=== PATIENT | male | born 1945 | race Caucasian/White ===

== ENCOUNTER → 2017-07-05 13:39 | Outpatient (CLI) | payer MEDICARE, OTHER, SELFPAY ==
[2017-07-05 15:44] LABS: PSA,Total - Annual Screen 2.43 ng/mL (0.00-4.00)
== END ==
PROVIDERS: Family Provider Internal Medicine; PCP Internal Medicine; Visit Provider Urology
DX: Z12.5 Encounter for screening for malignant neoplasm of prostate (principal)
CPT/HCPCS: 36415; 84153; G0103

== ENCOUNTER → 2018-01-12 07:06 | Outpatient (CLI) | payer MEDICARE, OTHER, SELFPAY ==
--- NOTE | 2018-01-12 07:18 | EKG12_ITS ---
Test Reason : PRE OP Blood Pressure : / mmHG Vent. Rate : 072 BPM Atrial Rate : 072 BPM P-R Int : 224 ms QRS Dur : 114 ms QT Int : 422 ms P-R-T Axes : 000 -05 027 degrees QTc Int : 462 ms Sinus rhythm with 1st degree A-V block Inferior infarct , age undetermined Abnormal ECG Confirmed by JOCELYNE VANEGAS, ERICA ([id number]), editor in chief NELSON MENDEZ ([id number] on 01/13/2018 3:39:00 PM Referred By: Jose Alarcon Confirmed By:ERICA CASANOVA MD
[2018-01-12 07:43] LABS: Hematocrit 43.9 % (40-54); Hemoglobin 14.7 g/dl (13.0-16.5); Mean Corp Hgb Conc 33.5 g/gl (32-36); Mean Corpuscular Hgb 32.2 pg (27.0-32.0); Mean Corpuscular Volume 96.1 fL (80-94); Mean Platelet Vol. 9.6 fl (6.2-12.0); Platelet Count 150 K/mm3 (150-450); RBC Distribution Width CV 14.2 % (11.6-14.6); RBC Distribution Width SD 49.6 fl (35.1-43.9); Red Blood Count 4.57 M/mm3 (4.6-6.2)
[2018-01-12 07:46] LABS: Scan Indicated on CBC? Y/N NO
[2018-01-12 08:19] LABS: Anion Gap 8 (5-15); BUN 24 mg/dL (7-18); BUN/Creat Ratio 24.4 RATIO (10-20); Chloride 108 mmol/L (98-107); Creatinine, Serum 0.98 mg/dL (0.70-1.30); EST Glomerular Filtration Rate 79 mL/min (>60); Est Glom Filt Rate - Afr Amer 96 mL/min (>60); Glucose 129 mg/dL (74-106); Potassium 3.8 mmol/L (3.5-5.1); Sodium Level 142 mmol/L (136-145)
== END ==
PROVIDERS: Family Provider Internal Medicine; PCP Internal Medicine; Referring Provider Physician Assistant; Visit Provider Physician Assistant
DX: Z01.818 Encounter for other preprocedural examination (principal)
CPT/HCPCS: 36415; 80048; 85027; 93005

== ENCOUNTER 2019-01-16 17:23 | Emergency (ER) | payer MEDICARE, OTHER, SELFPAY ==
[2019-01-16 17:25] VITALS: BP 152/89; PULSE 94; RESP 14; TEMP 36.2; O2SAT 97; BMI 22.6
[2019-01-16] MEDS: Lidocaine Jelly 2% 20 ML Syringe (URO-JET) 20 APPLIC TOPICAL (17:50)
--- NOTE | 2019-01-16 18:16 | ED.VIS.GEN ---
History of Present Illness Chief Complaint: Tatum C/O Informant: Patient Onset: Today Context: Gradual Onset Timing: Continuous Current Severity: Moderate Maximum Severity: Moderate Narrative: Patient presents to the emergency department with urinary retention. The patient did have a knee replacement last week. He did have urinary retention after his procedure. He just followed up in the office with urology today. He is catheter removed. His Flomax was increased. He states that he had some mild urination, but then it just stopped. He states that he spoke with his urologist who told him to come back to the office, but he had physical therapy. At the time he was done, the office was closed. He denies any blood in his urine. He is otherwise been in his normal state of health. Prior similar symptoms: Yes Recent Illness/Hospitalization: No Past Medical History - Allergies and Home Meds Allergies/Adverse Reactions: Allergies No Known Allergies Allergy (Verified 01/16/19 17:24) Primary Care Physician: Yonatan Sanchez MD [Primary Care Provider] - Prior records reviewed: Yes Surgical History: total knee arthroplasty Smoking Status: Never smoker Review of Systems General: Denies: Chills, Fever, Sweats Eyes: Denies: Visual changes - bilaterally, Diplopia ENT: Denies: Rhinorrhea, Sore throat Cardiovascular: Denies: Chest pain, Palpitations Respiratory: Denies: Dyspnea, Cough, Dyspnea on exertion Gastrointestinal: Denies: Abdominal pain, Nausea, Vomiting, Diarrhea, Melena, Hematochezia Genitourinary: Denies: Dysuria, Hematuria, Frequency Musculoskeletal: Denies: Back pain, Extremity Pain Skin: Denies: Rash, Wounds Neurological: Denies: Headache, Weakness, Numbness Physical Exam Vital Signs/Narrative: Vital Signs Temp Pulse Resp BP Pulse Ox 01/16/19 17:25 97.2 F L 94 14 152/89 H 97 Inital Vital Signs reviewed: Yes General: Well nourished, Well developed, No Acute Distress Head: Normocephalic, Atraumatic Eyes: Perrl, EOMI ENT: Moist mucous membranes, No rhinorrhea Neck: Supple, Nontender Cardiovascular: Regular rate, Regular rhythm, No murmurs Respiratory: No distress, CTA bilaterally, Chest nontender Abdomen: Soft, Nontender, Nondistended, Normal bowel sounds Back: Nontender, Normal Inspection Extremities: Nontender, No edema Skin: Normal color, No rash Neurological: Alert, Oriented x3, Cranial nerves II-XII grossly intact, Normal Strength, Normal Sensation Psychological: Normal affect, Normal Mood Diagnostic/Tx/Re-eval - Medical Decision Making The patient presents with acute urinary retention. Tatum catheter was placed. He had 400 cc of clear urine out. He is feeling markedly improved. At this point, he will be discharged with his catheter and follow-up with urology as initially scheduled. He is comfortable with this plan of care. Impression 1. Acute urinary retention ED Disposition - Plan for ED Patient: Disposition: Home or Assisted Living Instructions: Tatum Catheter, Care Referrals: Yonatan Sanchez MD [Primary Care Provider] -
== END 2019-01-16 18:34 | disposition home or self-care (01) ==
LOC: ED 17:42
PROVIDERS: Emergency Provider Emergency Medicine; Family Provider Internal Medicine; PCP Internal Medicine
DX: R33.9 Retention of urine, unspecified (principal); Z96.659 Presence of unspecified artificial knee joint
CPT/HCPCS: 51702; 99283

== ENCOUNTER 2022-12-01 13:00 | Observation (INO) | payer MEDICARE, OTHER, SELFPAY ==
[2022-12-01] VITALS (16 sets, daily range): BP systolic 148–228; BP diastolic 81–125; PULSE 57–76; RESP 12–26; TEMP 36.2–37.2; O2SAT 57–100; BMI 23.7; BMI 23.3
[2022-12-01] MEDS: Lidocaine 1% (20 ml mdv) 20 ML Vial INFILT (13:31)
[2022-12-01] MEDS: Ondansetron 4 MG/2 ML Vial IV (13:31)
[2022-12-01] MEDS: morphine 8 MG/ML Syringe IV (13:31)
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
[2022-12-01] MEDS: morphine 8 MG/ML Syringe 6 MG IV ×2 (13:49→14:17)
--- NOTE | 2022-12-01 13:50 | RAD_ITS ---
STUDY: X-RAY - LEFT RADIUS AND ULNA REASON FOR EXAM: Male, 77 years old. Left forearm fracture TECHNIQUE: 2 view(s) of the forearm. COMPARISON: None. FINDINGS: Soft tissue swelling. Transverse fracture of the distal radial shaft with overriding of the fracture fragments. Transverse fracture of the distal ulnar metaphysis with overriding of the fracture fragment. RAD/Forearm 2 Views IMPRESSION: Transverse fractures through the distal diaphysis of the radius as well as the distal metaphysis of the ulna with overlapping of the fracture fragments. Soft tissue swelling. Electronically Signed: Mayito García MD at 14:08 EDT ,
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
[2022-12-01] MEDS: Ampicillin/Sulbactam 3 GM in 0.9% Normal Saline (100mL MB+) 100 ML IV (14:30)
[2022-12-01] MEDS: Propofol 200 MG/20 ML Vial 60 MG IV BOLUS (15:39)
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
[2022-12-01] MEDS: Cefazolin 1 GM/5 ML Vial IM (16:50)
--- NOTE | 2022-12-01 17:00 | RAD_ITS ---
STUDY: X-RAY - LEFT RADIUS AND ULNA REASON FOR EXAM: Male, 77 years old. ORIF TECHNIQUE: 3 C-arm view(s) of the forearm. 27.1 seconds fluoroscopy time. COMPARISON: Earlier the same day. FINDINGS: Limited [id number] images from the OR show positioning of compression plates and screws across distal ulnar and radial fractures now in anatomic alignment and position. Correlate with procedure note. Electronically Signed: Moustapha Shaikh MD at 19:24 EDT , RAD/Forearm 2 Views IMPRESSION: undefined
[2022-12-01] MEDS: Ketorolac 30 MG/ML Syringe IV (20:26)
[2022-12-01] MEDS: Lactated Ringers 1,000 ML 100 ML IV ×2 (20:28→23:19)
--- NOTE | 2022-12-01 21:59 | NURSING ---
Pt has been out of bed. Pt has voided and is given an clear liq diet at this time
[2022-12-01 22:56] LABS: Absolute Lymphocyte Count 0.29 X10^3/uL (0.83-4.51); Absolute Neutrophil Count 5.6 X10^3/uL (2.0-7.7); Basophil# 0.01 X10^3/uL; Basophil% 0.2 % (0-1); Hematocrit 39.6 % (40-54); Hemoglobin 13.6 g/dL (13.0-16.5); Lymphocyte # 0.29 X10^3/ul (0.83-4.51); Lymphocyte % 4.7 % (19-41); Mean Corp Hgb Conc 34.3 g/dL (32-36); Mean Corpuscular Hgb 32.9 pg (27.0-32.0); Mean Corpuscular Volume 95.9 fL (80-94); Monocyte# 0.25 X10^3/uL; Monocyte% 4.1 % (0-10); NRBC Flagged by Analyzer 0 % (0-5); Neutrophil # 5.55 X10^3/uL (2.7-7.7); Neutrophil % 90.7 % (47-70); POSITIVE DIFFERENTIAL YES; Platelet Count 152 K/mm3 (150-450); RBC Distribution Width CV 13.9 % (11.6-14.6); RBC Distribution Width SD 49.1 fl (35.1-43.9); Red Blood Count 4.13 M/mm3 (4.6-6.2); White Blood Count 6.1 K/mm3 (4.4-11.0)
[2022-12-01 23:02] LABS: Differential Indicated SCAN CRITERIA MET
[2022-12-01 23:11] LABS: Anion Gap 7 (5-15); BUN 14 mg/dL (7-18); Calcium,Total 8.2 mg/dL (8.5-10.1); Chloride 105 mmol/L (98-107); Creatinine, Serum 1.17 mg/dL (0.70-1.30); EST Glomerular Filtration Rate 64 mL/min (>60); Est Glom Filt Rate - Afr Amer 77 mL/min (>60); Estimated Creatinine Clearance 56.19 ml/min; Glucose 195 mg/dL (74-106); Potassium 3.9 mmol/L (3.5-5.1); Sodium Level 136 mmol/L (136-145)
[2022-12-01 23:28] LABS: Differential Comment SCANNED
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
[2022-12-02 01:11] VITALS: BP 124/68; PULSE 73; RESP 18; TEMP 36.6; O2SAT 73
[2022-12-02] MEDS: Cefazolin 2 GM in 0.9% Normal Saline (100mL Bag) 100 ML IV ×3 (01:16→16:41)
[2022-12-02 06:00] VITALS: BP 115/65; PULSE 60; RESP 16; TEMP 36.5; O2SAT 96
[2022-12-02] MEDS: Ketorolac 30 MG/ML Syringe IV ×2 (06:09→15:09)
[2022-12-02] MEDS: 0.9% Saline Lock 10 ML Syringe IV (06:09)
--- NOTE | 2022-12-02 07:39 | PN.ORTHO_ITS ---
Subjective Subjective Patient seen and examined. Denies any new complaints. Denies fevers, chills, nausea vomiting, chest pain or shortness of breath. Urinating without difficulty. Pain is controlled with current pain regimen. Denies any numbness or tingling the left hand. Objective Data Objective Data Vital Signs: Vital Signs Temp Pulse Resp BP Pulse Ox O2 Del Method O2 Flow Rate 97.7 F L 60 16 115/65 96 Room Air 4 12/02/22 06:00 12/02/22 06:00 12/02/22 06:00 12/02/22 06:00 12/02/22 06:00 12/02/22 06:00 12/01/22 15:45 Oxygen Flow Rate (L/min) [1] 4 Oxygen Flow Rate (L/min) [4] 4 Oxygen Flow Rate (L/min) [3] 4 Oxygen Flow Rate (L/min) [2] 4 Oxygen Flow Rate (L/min) 4 Oxygen Delivery Method [1] Nasal Cannula Oxygen Delivery Method [4] Nasal Cannula Oxygen Delivery Method [3] Nasal Cannula Oxygen Delivery Method [2] Room Air Oxygen Delivery Method Room Air Weight: 172 lb 9.951 oz Body Mass Index (BMI) 23.3 Intake & Output: Intake and Output for Last 24 Hours 11/30/22 12/01/22 12/02/22 23:59 23:59 23:59 Intake Total 1637 / 1637 711.67 / 711.67 Output Total 240 / 240 Balance 1397 / 1397 711.67 / 711.67 Lab / Micro Data 12/01/22 22:47 12/01/22 22:47 Labs: Laboratory Results - last 24 hr 12/01/22 22:47: WBC 6.1, RBC 4.13 L, Hgb 13.6, Hct 39.6 L, MCV 95.9 H, MCH 32.9 H, MCHC 34.3, RDW Std Deviation 49.1 H, RDW Coeff of Alexy 13.9, Plt Count 152, MPV 10.0, Immature Gran % (Auto) 0.300, Neut % (Auto) 90.7 H, Lymph % (Auto) 4.7 L, [place] % (Auto) 4.1, Eos % (Auto) 0.0, Baso % (Auto) 0.2, Absolute Neuts (auto) 5.6, Absolute Lymphs (auto) 0.29 L, Nucleated RBC % 0, Differential Comment SCANNED, Sodium 136, Potassium 3.9, Chloride 105, Carbon Dioxide 24.0, Anion Gap 7, BUN 14, Creatinine 1.17, Estim Creat Clear Calc 56.19, Est GFR (MDRD) Af Amer 77, Est GFR (MDRD) Non-Af 64, BUN/Creatinine Ratio 12.0, Glucose 195 H, Calcium 8.2 L Radiography Diagnostic Testing: Radiology Impression Forearm X-Ray 12/01/22 13:50 IMPRESSION: Transverse fractures through the distal diaphysis of the radius as well as the distal metaphysis of the ulna with overlapping of the fracture fragments. Soft tissue swelling. Electronically Signed: Mayito García MD at 14:08 EDT , Hand X-Ray 12/01/22 13:50 IMPRESSION: Degenerative changes of the interphalangeal joints. Transverse fractures of the distal radius and ulna as described on prior examination. Electronically Signed: Mayito García MD at 14:09 EDT , Brain CT 12/01/22 15:48 IMPRESSION: Normal unenhanced CT scan of the brain. Electronically Signed: Moustapha Shaikh MD at 16:19 EDT , Forearm X-Ray 12/01/22 17:00 IMPRESSION: undefined Physical Exam Narrative General - A&Ox3, NAD. VSS/AF. Left upper Extremity - SILT median/ulnar/radial nerve distributions left hand. Cardinal motions of left hand are intact. Radial, ulnar pulses 2+. Compartments soft and compressible. BCR in finger tips. Incisional splint/dressing C/D/I. Assessment & Plan Assessment/Plan (1) Open fracture of left distal forearm: QUALIFIERS: Encounter type: initial encounter Open fracture type: open type I or II Qualified Code(s): S52.92XB - Unspecified fracture of left forearm, initial encounter for open fracture type I or II PLAN: POD#1 s/p left radius and ulna I&D, ORIF - Pain control - DVT PPX -aspirin 81 mg twice daily, SCDs, early mobilization -24 hours IV antibiotics. Plan for discharge on 1 week Keflex. -Plan for discharge later this evening after completing 24 hours postoperative antibiotics. Follow-up with me in the office in 2 weeks for suture removal and x-rays.
[2022-12-02] MEDS: Gabapentin 300 MG Capsule PO ×2 (08:09→16:44)
[2022-12-02] MEDS: Aspirin 81 MG TAB.CHEW PO ×2 (08:09→16:44)
[2022-12-02 09:17] VITALS: BP 106/67; PULSE 56; RESP 18; TEMP 36.5; O2SAT 96
[2022-12-02] MEDS: Flu Vacc QS2023-24(65YR UP)/PF 240 MCG/0.7 ML Syringe IM (09:49)
[2022-12-02 13:49] VITALS: BP 124/85; PULSE 56; RESP 18; TEMP 36.3; O2SAT 96
--- NOTE | 2022-12-02 14:30 | CASEMGMT ---
RN CM into pt room, pt sitting up in bed. Pt states he is doing well and denies any homegoing needs. Pt states his has picked up rx. He is I at home and up indep in the room.
--- NOTE | 2022-12-02 15:50 | CASEMGMT ---
Social Work SW met with pt to discuss advance directives.? Pt confirms he has completed a living will and health care POA naming his Estelita Ferris.? Pt notified that documents are not on file at [facility] and SW requested they be brought in for scanning into the EMR. AMANDA Isaac
--- NOTE | 2022-12-02 16:31 | CASEMGMT ---
Met with patient to complete AYALA form. AYALA form explained to patient who voiced understanding and signed form. Original form placed in pt?s chart and copy provided to patient. Lorie Elena, Discharge Planning Asst.
[2022-12-02 17:49] VITALS: BP 111/65; PULSE 59; RESP 18; TEMP 36.6; O2SAT 95
--- NOTE | 2022-12-02 18:19 | PCM.DC.SUM ---
Providers Date of Admission: 12/01/22 Primary Care Physician: Dr. Yonatan Sanchez MD Reason For Visit: I/D ORIF LEFT RADIAL AND ULNA Diagnosis Discharge Diagnosis (1) Open fracture of left distal forearm: Status: Acute Code(s): S52.92XB - Unspecified fracture of left forearm, initial encounter for open fracture type I or II Qualifiers: Encounter type: initial encounter Open fracture type: open type I or II Qualified Code(s): S52.92XB - Unspecified fracture of left forearm, initial encounter for open fracture type I or II Plan: POD#1 s/p left radius and ulna I&D, ORIF - Pain control - DVT PPX -aspirin 81 mg twice daily, SCDs, early mobilization -24 hours IV antibiotics. Plan for discharge on 1 week Keflex. -Plan for discharge later this evening after completing 24 hours postoperative antibiotics. Follow-up with me in the office in 2 weeks for suture removal and x-rays. Medications at Discharge Home Medications cholecalciferol (vitamin D3) 25 mcg (1,000 unit) capsule 25 mcg PO DAILY 09/02/21 coenzyme Q10 10 mg capsule (Co Q-10) 10 mg PO ONCE 09/02/21 glucosamine-chondroitin 250 mg-200 mg tablet (Osteo Bi-Flex) 2 tab PO QPC 09/02/21 lysine 500 mg tablet (L-Lysine) 500 mg PO DAILY 12/01/22 aspirin 81 mg chewable tablet 81 mg PO BIDCM 14 days #28 tabs 12/02/22 cephalexin 500 mg capsule 500 mg PO Q6H 7 days #28 caps 12/02/22 oxycodone-acetaminophen 5 mg-325 mg tablet (Percocet) 1 tab PO Q6H PRN pain 7 days #28 tabs 12/02/22 Hospital Course Summary of Care Provided Minutes Spent on Discharge: 20 Hospital Course: Patient sustained an open grade 1 fracture of his left radius and ulna 12/01/2022. He underwent urgent irrigation debridement with open reduction internal fixation of the radius and ulna on 12/01/2022. He tolerated the procedure well. He received 24 hours postoperative antibiotics as well as antibiotics and tetanus in the emergency department. No medical or surgical complications were encountered throughout his stay. His pain was controlled and he was able to be safely discharged home on postoperative day #1. Physical Exam Narrative General - A&Ox3, NAD. VSS/AF. Left upper Extremity - SILT median/ulnar/radial nerve distributions left hand. Cardinal motions of left hand are intact. Radial, ulnar pulses 2+. Compartments soft and compressible. BCR in finger tips. Incisional splint/dressing C/D/I. Weight / BMI Weight Weight: 172 lb 9.951 oz Body Mass Index (BMI) 23.3 ABG / Lab / Microbiology Data 12/01/22 22:47 12/01/22 22:47 Laboratory: Laboratory Results - last 24 hr 12/01/22 22:47: WBC 6.1, RBC 4.13 L, Hgb 13.6, Hct 39.6 L, MCV 95.9 H, MCH 32.9 H, MCHC 34.3, RDW Std Deviation 49.1 H, RDW Coeff of Alexy 13.9, Plt Count 152, MPV 10.0, Immature Gran % (Auto) 0.300, Neut % (Auto) 90.7 H, Lymph % (Auto) 4.7 L, [place] % (Auto) 4.1, Eos % (Auto) 0.0, Baso % (Auto) 0.2, Absolute Neuts (auto) 5.6, Absolute Lymphs (auto) 0.29 L, Nucleated RBC % 0, Differential Comment SCANNED, Sodium 136, Potassium 3.9, Chloride 105, Carbon Dioxide 24.0, Anion Gap 7, BUN 14, Creatinine 1.17, Estim Creat Clear Calc 56.19, Est GFR (MDRD) Af Amer 77, Est GFR (MDRD) Non-Af 64, BUN/Creatinine Ratio 12.0, Glucose 195 H, Calcium 8.2 L Radiography Diagnostic Testing: Radiology Impression Forearm X-Ray 12/01/22 17:00 IMPRESSION: undefined Meaningful Use Info Meaningful Use Diagnoses (Choose all that apply): None applicable Discharge Plan Admission Admit Date/Time: 12/01/22 16:41 Primary Reason for Your Visit: Left open forearm fracture Attending Provider: Milind Miles Primary Care Provider: Yonatan Sanchez Instructions Additional Instructions / Restrictions: Maintain surgical dressing/splint until follow-up. Must remain clean dry and intact. Okay to shower if covered. Follow-up in Dr. Miles's office in 2 weeks Ice and elevation of the left hand and wrist Range of motion as tolerated to the fingers and elbow Take antibiotics as prescribed Discharge Orders/Prescriptions Prescriptions: New oxycodone-acetaminophen [Percocet] 5-325 mg tablet 1 tab PO Q6H PRN (Reason: pain) 7 Days Qty: 28 0RF cephalexin 500 mg capsule 500 mg PO Q6H 7 Days Qty: 28 0RF aspirin 81 mg Tablet,Chewable 81 mg PO BIDCM 14 Days Qty: 28 0RF Continued coenzyme Q10 [Co Q-10] 10 mg capsule 10 mg PO ONCE glucosamine-chondroitin [Osteo Bi-Flex] 250-200 mg tablet 2 tab PO QPC cholecalciferol (vitamin D3) 25 mcg (1,000 unit) capsule 25 mcg PO DAILY Patient Comments: pt only takes for 5 days week lysine [L-Lysine] 500 mg tablet 500 mg PO DAILY Referrals / Follow Up: Milind Miles DO [Med Staff - Active Staff] - 12/16/22 Yonatan Sanchez MD [Primary Care Provider] - Disposition Disposition (needs filled in before D/C Order can be placed): Home, Self Care
== END 2022-12-02 18:55 | disposition home or self-care (01) ==
LOC: ED 15:43 → SDC 16:35 → ACINP 16:36 → MS3 21:34 → SDC 12-02 09:27 → MS3 12-02 09:27
PROVIDERS: Admitting Provider Student in an Organized Health Care Education/Training Program; Emergency Provider Emergency Medicine; PCP Internal Medicine; Visit Provider Student in an Organized Health Care Education/Training Program
PROC: (CPT 25575; principal; 2022-12-01 16:00)
DX: S52.592B Other fractures of lower end of left radius, initial encounter for open fracture type I or II (principal); S01.01XA Laceration without foreign body of scalp, initial encounter; R11.0 Nausea; V86.59XA Driver of other special all-terrain or other off-road motor vehicle injured in nontraffic accident, initial encounter; Y93.89 Activity, other specified; Y92.9 Unspecified place or not applicable; S52.222B Displaced transverse fracture of shaft of left ulna, initial encounter for open fracture type I or II; Z23 Encounter for immunization
CPT/HCPCS: 25575; 12002; 25605; 11012; 36415; 70450; 73090; 73120; 76000; 80048; 85025; 93005; 94668; 96361; 96365; 96366; 96367; 96375; 96376; 99152; 99221; 99252; 99285; C1713; J7030; J7120; 90662; A4216; G0378; G0463; J0295; J2405

== ENCOUNTER 2023-03-06 07:25 | Inpatient (IN) | payer MEDICARE, OTHER, SELFPAY ==
[2023-03-06] VITALS (12 sets, daily range): BP systolic 89–113; BP diastolic 60–73; PULSE 83–121; RESP 17–26; TEMP 36.3–37; O2SAT 88–96; BMI 24.4; BMI 25.4
--- NOTE | 2023-03-06 07:50 | RAD_ITS ---
EXAM: XR CHEST, 1 VIEW CLINICAL INDICATION: cough TECHNIQUE: Frontal view of the chest. COMPARISON: No relevant prior studies available. FINDINGS: LUNGS AND PLEURAL SPACES: Right upper lobe consolidative airspace disease consistent with pneumonia. Few air bronchograms are identified. No pneumothorax. No effusion. HEART: No significant abnormality. Cardiac silhouette not enlarged. MEDIASTINUM: Central airways and mediastinal contour are unremarkable. BONES/JOINTS: No significant abnormality. No acute fracture. SOFT TISSUES: No significant abnormality. RAD/Chest 1 View (Portable) IMPRESSION: Right upper lobe pneumonia. Electronically Signed: Zach Perez DO at 10:04 EST ,
--- NOTE | 2023-03-06 08:08 | EDS_ITS ---
HPI History of Present Illness Chief Complaint: Shortness of Breath Informant: patient and spouse/S.O. Narrative Narrative: Patient presenting increasing dyspnea and cough overnight. Reports had a cough for the past 3 months intensifying over the last month with productive sputum. Saw his PCP 2 weeks ago outpatient chest X reported negative. He was provided inhaler. Denies asthma or COPD history. Denies any past medical history and states does not take daily medications. Denies recent travel or surgeries. No history of PE or DVT. Yesterday had fever myalgia is went to urgent care through [facility] paperwork brought noting negative COVID flu and RSV. No further testing by the clinic. States overnight however cough and productive sputum with dyspnea. Present ED 88% on room air. Chest discomfort with cough. PE Risk Factors: Negative for Cancer, OCP + Smoking + > 35, Prior DVT or PE, Recent immobilization or Recent surgery Prior similar symptoms: No PFSH PFSH Medical History BPH (benign prostatic hyperplasia) Skin cancer Medical History no medical history no medical history Home Medications cholecalciferol (vitamin D3) 25 mcg (1,000 unit) capsule 25 mcg PO DAILY 09/02/21 [History Last Taken 12/01/22] coenzyme Q10 10 mg capsule (Co Q-10) 10 mg PO ONCE 09/02/21 [History Last Taken 12/01/22] glucosamine-chondroitin 250 mg-200 mg tablet (Osteo Bi-Flex) 2 tab PO QPC 09/02/21 [History Last Taken Unknown] lysine 500 mg tablet (L-Lysine) 500 mg PO DAILY 12/01/22 [History Last Taken 12/01/22] Allergy/AdvReac Type Severity Reaction Status Date / Time No Known Allergies Allergy Verified 03/06/23 07:26 Family History Brother Esophageal cancer Surgical History Total knee replacement status Social History Smoking Status: Never smoker ROS ROS ED Constitutional Constitutional ED: Reports chills; Denies fever(s) or sweats Eyes Eyes: Denies change in vision ENT ENT ED: Denies dysphagia or sore throat Cardiovascular Cardiovascular: Denies chest pain, leg edema, palpitations or racing heartbeat Respiratory/Chest Respiratory/Chest: Reports cough and dyspnea; Denies dyspnea on exertion Gastrointestinal Gastrointestinal: Denies abdominal pain, diarrhea, nausea or vomiting Genitourinary Genitourinary ED: Denies dysuria, hematuria or urinary frequency Musculoskeletal Musculoskeletal: Reports myalgias; Denies back pain, extremity pain or neck pain Integumentary Denies rash or wounds Neurologic Neurologic: Denies headache(s), paresthesias or weakness EXAM Physical Exam Const Vital Signs: 03/06/23 07:27 03/06/23 07:32 03/06/23 08:00 Temperature 97.4 F L 97.8 F Temperature Source Temporal Temporal Pulse Rate 121 H 115 H Respiratory Rate 22 H 18 Respiratory Effort Respiratory Depth Respiratory Pattern Blood Pressure 110/60 99/73 Blood Pressure Mean 76 81 Pulse Ox 88 Oxygen Delivery Method Room Air Nasal Cannula Oxygen Flow Rate (L/min) 2 03/06/23 08:16 03/06/23 08:16 03/06/23 08:47 Temperature Temperature Source Pulse Rate 100 102 H Respiratory Rate 26 H Respiratory Effort Short of Breath Respiratory Depth Shallow Respiratory Pattern Tachypnea Blood Pressure 89/67 L 112/69 Blood Pressure Mean 74 83 Pulse Ox 93 Oxygen Delivery Method Room Air Oxygen Flow Rate (L/min) Positive well nourished and well developed Constitutional Narrative: 2 L nasal cannula no respiratory distress General Appearance ED: well developed and NAD HEENT Reports moist mucous membranes normocephalic and atraumatic Eyes PERRL, EOMs intact bilaterally and conjunctivae normal General Eye ED: Yes normal appearance of both eyes Neck no lymphadenopathy and supple General: Negative for tenderness Chest Wall Chest: Negative for tenderness Resp normal respiratory effort and normal air movement Effort and Inspection: symmetric chest movement; Negative for respiratory distress Cardio regular rhythm and no murmurs Rhythm: abnormal rhythm Peripheral Pulses: pulses 2+ throughout GI normal to inspection, nondistended, normoactive bowel sounds and non-tender Palpation: Negative for guarding or rebound tenderness present Back/Spine no CVA tenderness and no thoracic nor lumbar tenderness Extremity normal to inspection General Extremety ED: Negative for edema or tenderness General Extremity: Negative for edema Neuro oriented x3 and no sensory deficits noted Sensorium / Orientation: awake and alert Skin no rashes or lesions noted and no wounds Sepsis Attestation Sepsis Alert: Yes Sepsis Attestation: Agree w/Sepsis Date exam was performed: 03/06/23 Time exam was performed: 08:12 Possible Source of Sepsis: Pulmonary Sepsis Organ Dysfunction Criteria Present: SBP < 90 mmHg or MAP < 65 mmHg Fluid Resuscitation Fluid Resuscitation ordered: Lesser volume fluid bolus ordered Amount of fluid ordered: 1,000 Reason for lesser fluid bolus:: BP Responded to a lesser volume Sepsis Note Date exam was performed: 03/06/23 Time exam was performed: 09:11 Sepsis Attestation: Sepsis re-evaluation was performed Response to fluids: Fluid responsive hypotension MDM MDM MDM Narrative Medical decision making narrative: Interventions / MDM: Differential diagnosis: Pneumonia, hypoxia Diagnosis considered but do not suspect: N/A My EKG interpretation: Atrial fibrillation rate of 105, no ST or T wave changes. Imaging independently reviewed and interpreted by myself: 1 view chest x-ray: right middle lobe infiltrate External documents reviewed: N/A Test considered but not ordered:N/A ED course: Patient placed on 2 L nasal cannula increasing cough worsened overnight. Chest x-ray labs recheck COVID and flu sent out. EKG rate controlled A-fib that is new. [id number] score of 2 for age. Discussed with his hypoxia will require hospitalization. 0805: 1 view chest x-ray interpreted self concerning right middle lobe infiltrate. Tachycardic on arrival with respiratory rate at 22. Now meeting potential sepsis criteria. Additional sepsis labs were ordered. Rocephin and Zithromax as ordered for community-acquired pneumonia. 0818: Blood pressure 89/67 MAP of 75. Nontoxic. Will start 1 L IV fluids. 0905: Lactic acid returned at 2.8. White count 3.6. Creatinine 1.46 up from 1.17. Blood pressure responding to IV fluids. He is meeting severe sepsis criteria. He is nontoxic. I discussed with hospitalist Dr. Evangelista for admission to PCU. Re-evaluation: stable Disposition discussed with patient/family/significant other: Patient and significant other Case discussed with consulting clinician: N/A This note was generated with [employer] dictation software. It may contain incorrect words, spelling, and punctuation that were not noted in checking the note before signing. Lab Data Attestation: I reviewed the patient's lab results. Labs: Laboratory Results - last 24 hr 03/06/23 03/06/23 07:37 08:12 WBC 3.6 L RBC 4.34 L Hgb 14.4 Hct 41.2 MCV 94.9 H MCH 33.2 H MCHC 35.0 RDW Std Deviation 48.3 H RDW Coeff of Alexy 13.9 Plt Count 141 L MPV 10.9 Immature Gran % (Auto) 0.300 Neut % (Auto) 85.7 H Lymph % (Auto) 8.1 L [place] % (Auto) 5.3 Eos % (Auto) 0.0 Baso % (Auto) 0.6 Absolute Neuts (auto) 3.1 Absolute Lymphs (auto) 0.29 L Nucleated RBC % 0 Differential Comment SCANNED Diff Path Review July foll PT 18.1 H INR 1.5 APTT 30.2 Sodium 133 L Potassium 4.0 Chloride 103 Carbon Dioxide 24.0 Anion Gap 6 BUN 35 H Creatinine 1.46 H Estim Creat Clear Calc 45.03 Est GFR (MDRD) Af Amer 60 Est GFR (MDRD) Non-Af 49 L BUN/Creatinine Ratio 24.0 H Glucose 123 H Lactic Acid 2.8 H* Calcium 9.1 Phosphorus 3.6 Magnesium 1.7 Total Bilirubin 2.70 H Direct Bilirubin 0.50 H AST 11 L ALT 14 L Alkaline Phosphatase 66 Troponin I High Sens 9 Total Protein 7.0 Albumin 3.1 L Globulin 3.9 Procalcitonin 12.77 H Radiography Diagnostic Testing: Clinical Impression(s) from Imaging Studies Chest X-Ray 03/06/23 07:50 IMPRESSION: Right upper lobe pneumonia. Electronically Signed: Zach Perez DO at 10:04 EST , Critical Care Time Critical Care Time: Yes Critical care time (excluding procedures): 30-74 minutes, Discussing w/Patient &/or Family/Structured Cabling Technician, Arranging Admission or Transfer, Performing Direct Patient Care at Bedside and - (35 minutes) Discharge Plan Dx/Rx/DC Orders Clinical Impression: Community acquired pneumonia, Atrial fibrillation, new onset, Hypoxia, Acute renal insufficiency, Severe sepsis Disposition Disposition: Acute Care [facility] Discharge Date/Time: 03/06/23 11:13
--- OUTSIDE RECORDS SUMMARY | 2023-03-06 08:08 | XMS RPT_ITS | CCD ---
Author Name Unknown Address [address] [place] [address] Organization [facility] Care Team Providers Care Sonography Technician Name Role Phone Yonatan Sagastume Unavailable Unavailable Alvaro, Rk B Unavailable Unavailable Unknown, Referring Provider Unavailable Unav ailable Alvaro, Rk Unavailable Unavailable Tanika VANEGAS, Yonatan Pompa Primary Care Provider [phone] Tanika VANEGAS, Yonatan Pompa Primary Care Provider [phone] Tanika VANEGAS, Yonatan Pompa Primary Care Provider [phone] YONATAN SAGASTUME Attending Unavailable TANIKA, YONATAN Pompa Primary Care Unavailable TANIKA, YONATAN Pompa Primary Care Unavailable AKHIL MCGOWAN Attending Unavailable TANIKA, YONATAN Pompa Primary Care Unavailable YONATAN SAGASTUME Attending Unavailable YONATAN SAGASTUME Referring Unavailable TANIKA, YONATAN Pompa Primary Care Unavailable YONATAN SAGASTUME Primary Care Unavailable YONATAN SAGASTUME Referring Unavailable TANIKA, YONATAN Pompa Primary Care Unavailable YONATAN SAGASTUME Attending Unavailable TANIKA, YONATAN Pompa Primary Care Unavailable TANIKA, YONATAN Pompa Primary Care Unavailable YONATAN SAGASTUME Referring Unavailable YONATAN SAGASTUME Primary Care Unavailable YONATAN SAGASTUME Referring Unavailable YONATAN SAGASTUME Primary Care Unavailable SHRADDHA LONDONO Referring Unavailable TANIKA, YONATAN Pompa Primary Care Unavailable YONATAN SAGASTUME Attending Unavailable TANIKA, YONATAN Pompa Referring Unavailable TANIKA, YONATAN Pompa Primary Care Unavailable TANIKA, YONATAN Pompa Referring Unavailable TANIKA, YONATAN Pomap Primary Care Unavailable YONATAN SAGASTUME Referring Unavailable AKHIL MCGOWAN Referring Unavailable TANIKA, YONATAN Pompa Primary Care Unavailable YONATAN SAGASTUME Primary Care Unavailable YONATAN SAGASTUME Attending Unavailable YONATAN SAGASTUME Primary Care Unavailable YONATAN SAGASTUME Attending Unavailable Medications Current Medications Medication Drug Class(es) Dates Sig (Normalized) Sig (Original) L-LYSINE ORAL (5 sources) End: 12-24-2021 take 500 mg by mouth once daily L-LYSINE ORAL Take 500 mg by mouth once daily. 0 12/24/2021 Discontinued (Course of therapy completed) Completed/Discontinued Medications Medication Drug Class(es) Dates Sig (Normalized) Sig (Original) [id number] 200 actuat albuterol 0.09 mg/actuat metered dose inhaler (3 sources) beta2-Adrenergic Agonist Start: 02-15-2023 take 2 puff(s) by inhalation every six hours as needed for wheezing albuterol HFA (PROVENTIL HFA, VENTOLIN HFA) 90 mcg/actuation inhaler Indications: Chronic cough Inhale 2 Puffs as instructed every 6 hours as needed for wheezing/shortnes s of breath. 1 Each 1 02/15/2023 Active Problems Active Problems Problem Classification Problem Date Documented Da te Episodic/Chronic Cancer; other and unspecified primary (2 sources) Personal history of malignant neoplasm of other organs and systems; Translations: [History of squamous cell carcinoma] Episodic Disorders of lipid metabolism (20 sources) Hypercholesterolemi a; Translations: [Pure hypercholesterolemi a, unspecified] Onset: 03-31-2018 03-31-2018 Chronic Esophageal disorders (8 sources) Gastro-esophageal reflux disease with esophagitis; Translations: [GERD with esophagitis] Onset: 02-04-2016 02-04-2016 Chronic Esophageal disorders (1 source) Esophageal disorders; Translations: [Gastroesophageal reflux disease with esophagitis without hemorrhage] Onset: 02-04-2016 Essential hypertension (1 source) Essential (primary) hypertension; Translations: [Hypertension, unspecified type] Onset: 06-05-2022 Chronic Fracture of upper limb (1 source) Open fracture of lower end of forearm; Translations: [Unspecified fracture of left forearm, initial encounter for open fracture type I or II] Onset: 12-08-2022 12-08-2022 Episodic Genitourinary symptoms and ill-defined conditions (2 sources) Nocturia; Translations: [Nocturia] Episodic Hyperplasia of prostate (4 sources) Large prostate ; Translations: [Benign prostatic hypertrophy with outflow obstruction] Chronic Immunizations and screening for infectious disease (1 source) Vaccination needed; Translations: [Encounter for immunization] Episodic Other circulatory disease (2 sources) Elevated blood pressure; Translations: [Elevated blood-pressure reading, without diagnosis of hypertension] Onset: 04-24-2022 Episodic Other connective tissue disease (1 source) Dupuytren's disease of palm; Translations: [Palmar fascial fibromatosis [Dupuytren]] Episodic Other connective tissue disease (1 source) Pain of left calf; Translations: [Pain in left lower leg] 09-30-2022 Episodic Other lower respiratory disease (1 source) Cough; Translations: [Subacute cough] Episodic Other lower respiratory disease (11 sources) Chronic cough; Translations: [Chronic cough] Onset: 06-01-2022 Episodic Other screening for suspected conditions (not mental disorders or infectious disease) (1 source) Encounter for screening for malignant neoplasm of prostate; Translations: [Screening for prostate cancer] Onset: 12-08-2022 Episodic Past or Other Problems Problem Classification Problem Date Documented Da te Episodic/Chronic Diabetes mellitus without complication (2 sources) Impaired fasting glycemia; Translations: [Impaired fasting glucose] Onset: 04-16-2022 Episodic Nonspecific chest pain (1 source) Other chest pain; Translations: [Atypical chest pain] Onset: 06-05-2022 Episodic Other and unspecified benign neoplasm (6 sources) Benign neoplasm of colon; Translations: [Benign neoplasm of colon, unspecified] Onset: 02-04-2006 02-04-2006 Episodic Other non-epithelial cancer of skin (20 sources) History of malignant basal cell neoplasm of skin; Translations: [Personal history of other malignant neoplasm of skin] Onset: 07-26-2017 07-26-2017 Episodic Other skin disorders (15 sources) Actinic keratosis; Translations: [Actinic keratosis] Onset: 05-28-2016 05-28-2016 Episodic Residual codes; unclassified (6 sources) Persistent insomnia; Translations: [Insomnia, unspecified] Onset: 10-29-2022 10-29-2022 Episodic NEGATED: Highlighted row has not occurred!Residual codes; unclassified (5 sources) Disease Episodic Results Test Name Value Interpretation Reference Range Facil ity Vital Signs Date Time Vital Sign Value Performing Clinician Facility 02-17-2023 07:56-0500 Body height 178.3 cm Pulm Wstr Work Phone: [facility] 02-17-2023 07:56-0500 Body weight 83.46 kg Pulm Wstr Work Phone: [facility] 02-17-2023 07:56-0500 Heart rate 63 /min Pulm Wstr Work Phone: [facility] 02-17-2023 07:56-0500 Respiratory rate 14 /min Pulm Wstr Work Phone: [facility] 02-17-2023 07:56-0500 SaO2% (BldA) [Mass fraction] 95 % Pulm Wstr Work Phone: [facility] 02-15-2023 14:19-0500 Body temperature 98.29 [degF] Yonatan Sagastume MD Work Phone: [facility] 02-15-2023 14:19-0500 Body weight 83.46 kg Yonatan Sagastume MD Work Phone: [facility] 02-15-2023 14:19-0500 Diastolic blood pressure 74 mm[Hg] Yonatan Sagastume MD Work Phone: [facility] 02-15-2023 14:19-0500 Heart rate 68 /min Yonatan Sagastume MD Work Phone: [facility] 02-15-2023 14:19-0500 SaO2% (BldA) [Mass fraction] 96 % Yonatan Sagastume MD Work Phone: [facility] 02-15-2023 14:19-0500 Systolic blood pressure 130 mm[Hg] Yonatan Sagastume MD Work Phone: [facility] 10-29-2022 15:56-0400 Body weight 80.69 kg Yonatan Sagastume MD Work Phone: [facility] 10-29-2022 15:56-0400 Diastolic blood pressure 60 mm[Hg] Yonatan Sagastume MD Work Phone: [facility] 10-29-2022 15:56-0400 Heart rate 64 /min Yonatan Sagastume MD Work Phone: [facility] 10-29-2022 15:56-0400 Respiratory rate 12 /min Yonatan Sagastume MD Work Phone: [facility] 10-29-2022 15:56-0400 Systolic blood pressure 114 mm[Hg] Yonatan Sagastume MD Work Phone: [facility] 09-30-2022 16:23-0400 Body weight 80.2 kg Yonatan Sagastume MD Work Phone: [facility] 09-30-2022 16:23-0400 Diastolic blood pressure 70 mm[Hg] Yonatan Sagastume MD Work Phone: [facility] 09-30-2022 16:23-0400 Heart rate 64 /min Yonatan Sagastume MD Work Phone: [facility] 09-30-2022 16:23-0400 Respiratory rate 12 /min Yonatan Sagastume MD Work Phone: [facility] 09-30-2022 16:23-0400 Systolic blood pressure 114 mm[Hg] Yonatan Sagastume MD Work Phone: [facility] 06-01-2022 16:57-0400 Body temperature 98.1 [degF] Yonatan Sagastume MD Work Phone: [facility] 06-01-2022 16:57-0400 Body weight 85.73 kg Yonatan Sagastume MD Work Phone: [facility] 06-01-2022 16:57-0400 Diastolic blood pressure 70 mm[Hg] Yonatan Sagastume MD Work Phone: [facility] 06-01-2022 16:57-0400 Heart rate 60 /min Yonatan Sagastume MD Work Phone: [facility] 06-01-2022 16:57-0400 Respiratory rate 12 /min Yonatan Sagastume MD Work Phone: [facility] 06-01-2022 16:57-0400 SaO2% (BldA) [Mass fraction] 95 % Yonatan Sagastume MD Work Phone: [facility] 06-01-2022 16:57-0400 Systolic blood pressure 118 mm[Hg] Yonatan Sagastume MD Work Phone: [facility] 04-24-2022 14:19-0500 Body height 176.5 cm Yonatan Sagastume MD Work Phone: [facility] 04-24-2022 14:19-0500 Body weight 84.37 kg Yonatan Sagastume MD Work Phone: [facility] 04-24-2022 14:19-0500 Diastolic blood pressure 78 mm[Hg] Yonatan Sagastume MD Work Phone: [facility] 04-24-2022 14:19-0500 Heart rate 64 /min Yonatan Sagastume MD Work Phone: [facility] 04-24-2022 14:19-0500 Respiratory rate 16 /min Yonatan Sagastume MD Work Phone: [facility] 04-24-2022 14:19-0500 SaO2% (BldA) [Mass fraction] 98 % Yonatan Sagastume MD Work Phone: [facility] 04-24-2022 14:19-0500 Systolic blood pressure 132 mm[Hg] Yonatan Sagastume MD Work Phone: [facility] 12-24-2021 08:01-0400 Body temperature 97.3 [degF] Shraddha Older [employer] Work Phone: [facility] 12-24-2021 08:01-0400 Body weight 84.37 kg Shraddha Older [employer] ENGINE[employer] Work Phone: [facility] 12-24-2021 08:01-0400 Diastolic blood pressure 84 mm[Hg] Shraddha Older INDUSTRIAL 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 [employer] Work Phone: [facility] 12-24-2021 08:01-0400 Heart rate 60 /min Shraddha Older INDUSTRIAL ENGINE[employer]ING [employer] Work Phone: [facility] 12-24-2021 08:01-0400 Respiratory rate 14 /min Shraddha Older INDUSTRI[employer] ENGINE[employer]ING [employer] Work Phone: [facility] 12-24-2021 08:01-0400 Systolic blood pressure 176 mm[Hg] Shraddha Older IND[employer] ENGINEERING [employer] Work Phone: [facility] 06-24-2021 13:54-0400 Body height 182.9 cm Darrion Blackwell MD Work Phone: [facility] 06-24-2021 13:54-0400 Body temperature 98.1 [degF] Darrion Blackwell MD Work Phone: [facility] 06-24-2021 13:54-0400 Body weight 86.64 kg Darrion Blackwell MD Work Phone: [facility] 06-24-2021 13:54-0400 Diastolic blood pressure 87 mm[Hg] Darrion Blackwell MD Work Phone: [facility] 06-24-2021 13:54-0400 Heart rate 80 /min Darrion Blackwell MD Work Phone: [facility] 06-24-2021 13:54-0400 SaO2% (BldA) [Mass fraction] 99 % Darrion Blackwell MD Work Phone: [facility] 06-24-2021 13:54-0400 Systolic blood pressure 162 mm[Hg] Darrion Blackwell MD Work Phone: [facility] 03-29-2019 13:09-0500 BMI (Body Mass Index) 25.5 kg/m2 Rk Alvaro [facility] -[facility] Work Phone: 03-29-2019 13:09-0500 Body weight 85.28 kg Rk Alvaro JH-Auplmui-Xymif [facility] Work Phone: 03-29-2019 13:09-0500 BP Diastolic 86 mm[Hg] Rk Alvaro QP-Txiglpd-[facility] [place] Work Phone: 03-29-2019 13:09-0500 BP Systolic 148 mm[Hg] Rk Alvaro AS-Lqxyihe-Cvjnc [place] Work Phone: 03-29-2019 13:09-0500 BSA (Body Surface Area) 2.08 m2 Rk Alvaro OZ-Pbgciwz-Wpaql [place] Work Phone: 03-29-2019 13:09-0500 Height 182.88 cm Rk Alvaro UE-Weofcpc-Avnzg [facility] Work Phone: 03-29-2019 13:09-0500 Pulse (Heart Rate) 55 /min Rk Alvaro TQ-Hczqwxk-Ar jacque [place] Work Phone: Encounters Encounter Date Encounter Type Care Provider Facility Start: 02-17-2023 End: 02-17-2023 ambulatory YONATAN SAGASTUME Facility:[facility] Start: 02-17-2023 End: 02-17-2023 ambulatory Pulm Lab [facility] Work Phone: [facility] Procedures Date Procedure Procedure Detail Performing Clinician Start: 02-17-2023 Brncdilat rspse spmt ry pre&post-brncdilat admn Yonatan Sagastume MD Work Phone: Start: 12-11-2022 PFIZER-BIONTECH COVI D-19 VACCINE ( SEASON) AGE 12+ YR Monet Isaacs MD Work Phone: Start: 12-12-2021 INFLUENZA SEASONAL QUADRIVALENT HIGH DOSE AGE 65+ Elizabeth Lees MD Work Phone: Start: 10-07-2021 PFIZER-BIONTECH COVI D-19 VACCINE, AGE 12+ YR (ARIZMENDI TOP) Elizabeth Lees MD Work Phone: Start: 06-12-2021 PT ED PATIENT INFORMATION Darrion Blackwell MD Work Phone: Start: 04-21-2021 Adult depression scr eening assessment Mac Rodríguez MD Work Phone: Start: 03-29-2019 Follow-up visit Start: 03-02-2019 Antibody screen Plan of Treatment Date Care Activity Detail Author Start: 04-08-2028 Urine microalbumin profile [facility] Start: 10-23-2025 DIABETES SCREEN DIABETES SCREEN [facility] Start: 10-23-2025 Diabetes Screening Diabetes Screenin g [facility] Start: 04-16-2025 DIABETES SCREEN DIABETES SCREEN [facility] Start: 04-16-2024 DIABETES SCREEN DIABETES SCREEN [facility] Start: 10-01-2023 COVID-19 VACCINE (6 - Moderna series) COVID-19 VACCINE (6 - Moderna series) [facility] Immunizations Immunization Date Immunization Notes Care Provider Fa cility 12-11-2022 COVID-19 vaccine, ag e 12+ yr, season (PFIZER-BIONTECH) Immunization [place] Work Phone: [facility] Work Phone: 12-02-2022 influenza (HD-IIV4) vaccine, age 65+ yr, high dose, quadrivalent, PF (FLUZONE HIGH-DOSE) Immunization [place] Work Phone: [facility] Work Phone: 12-12-2021 influenza, high-dose , quadrivalent vaccine (FLUZONE HIGH DOSE QUADRIVALENT) Oh Nurse Work Phone: [facility] Work Phone: 10-07-2021 COVID-19 vaccine, ag e 12+ yr (PFIZER-BIONTECH - ARIZMENDI TOP) Oh Nurse Work Phone: [facility] Work Phone: 02-03-2021 COVID-19 vaccine, fu ll dose (MODERNA) Oh Nurse Work Phone: [facility] Work Phone: 11-15-2020 influenza, high-dose , quadrivalent vaccine (FLUZONE HIGH DOSE QUADRIVALENT) Mac Rodríguez MD Work Phone: [facility] 05-15-2020 COVID-19 vaccine, fu ll dose (MODERNA) Mac Rodríguez MD Work Phone: [facility] Work Phone: 04-16-2020 COVID-19 vaccine, fu ll dose (MODERNA) Mac Rodríguez MD Work Phone: [facility] Work Phone: 12-27-2019 influenza, high-dose , quadrivalent vaccine (FLUZONE HIGH DOSE QUADRIVALENT) Mac Rodríguez MD Work Phone: [facility] 12-13-2018 influenza, high dose seasonal, preservative-free Mac Rodríguez MD Work Phone: [facility] 08-15-2018 zoster vaccine recombinant Mac Rodríguez MD Work Phone: [facility] Work Phone: 06-06-2018 zoster vaccine recombinant Mac Rodríguez MD Work Phone: [facility] Work Phone: 04-08-2018 tetanus and diphther ia toxoids, adsorbed, preservative free, for adult use (5 Lf of tetanus toxoid and 2 Lf of diphtheria toxoid) Mac Rodríguez MD Work Phone: [facility] Work Phone: 12-18-2017 influenza, high dose seasonal, preservative-free Mac Rodríguze MD Work Phone: [facility] 12-30-2016 influenza, high dose seasonal, preservative-free Mac Rodríguez MD Work Phone: [facility] Work Phone: 12-28-2015 influenza, high dose seasonal, preservative-free Mac Rodríguez MD Work Phone: [facility] 05-30-2015 pneumococcal conjuga te vaccine, 13 valent Mac Rodríguez MD Work Phone: [facility] Work Phone: 12-27-2014 influenza, high dose seasonal, preservative-free Mac Rodríguez MD Work Phone: [facility] 01-03-2014 influenza, seasonal, injectable Mac Rodríguez MD Work Phone: [facility] 12-31-2012 influenza virus vaccine, unspecified formulation Mac Rodríguez MD Work Phone: [facility] Work Phone: 12-05-2011 influenza virus vaccine, unspecified formulation Mac Rodríguez MD Work Phone: [facility] Work Phone: 12-13-2010 influenza virus vaccine, unspecified formulation Mac Rodríguez MD Work Phone: [facility] 12-17-2009 influenza virus vaccine, unspecified formulation Mac Rodríguez MD Work Phone: [facility] Work Phone: 12-01-2008 influenza virus vaccine, unspecified formulation Mac Rodríguez MD Work Phone: [facility] Work Phone: 04-30-2008 pneumococcal polysaccharide vaccine, 23 valent Mac Rodríguez MD Work Phone: [facility] 01-09-2008 influenza virus vaccine, whole virus Mac Rodríguez MD Work Phone: [facility] Work Phone: 01-09-2008 tetanus toxoid, redu flaco diphtheria toxoid, and acellular pertussis vaccine, adsorbed Mac Rodríguez MD Work Phone: [facility] Work Phone: 06-21-2007 zoster vaccine, live Mac Rodríguez MD Work Phone: [facility] Work Phone: 01-11-2007 influenza virus vaccine, unspecified formulation Mac Rodríguez MD Work Phone: [facility] Work Phone: 01-05-2006 influenza virus vaccine, unspecified formulation Mac Rodríguez MD Work Phone: [facility] Payers Date Payer Category Payer Medicare [id number] 2015 Private Health Insurance HUMANA HUMANA MEDICARE SUPPLEMENT [id number] 2015-Present [id number] [place] [id number] Indemnity [id number] 2015 Private Health Insurance HUMANA HUMANA MEDICARE SUPPLEMENT [id number] 2015-Present [phone] [address] [address] [place] [address] Indemnity [id number] 2008 Medicare MEDICARE MEDICAR E A AND B [id number] 2008-Present [phone] [address] [address] [place] [address] Medicare [id number] 2008 Medicare MEDICARE MEDICAR E A AND B [id number] 2008-Present [phone] [place] [address] Medicare [id number] 2008 Medicare [id number] Social History Date Type Detail Facility Start: 11-14-2012 End: 12-24-2021 Tobacco smoking status NHIS Never smoked tobacco [facility] Work Phone: Start: 06-12-2021 End: 02-17-2023 Alcohol intake Current drinker of alcohol (finding) [facility] Start: 06-12-2021 End: 09-30-2022 Alcohol intake [facility] Work Phone: Start: 04-21-2021 End: 04-24-2022 History SDOH Alcohol Frequency 3 [facility] Start: 04-21-2021 History SDOH Alcohol Std Drinks 1 [facility] Start: 04-21-2021 End: 04-24-2022 History SDOH Physical Activity DPW 7 [facility] Start: 04-21-2021 History SDOH Physica l Activity MPS 6 [facility] Start: 1945 Sex Assigned At Not on file [facility] Start: 06-01-2021 End: 12-08-2021 Exposure to SARS-CoV-2 (event) Not sure [facility] Start: 11-14-2012 End: 12-24-2021 Tobacco use and exposure Smokeless tobacco non-user [facility] Start: 04-21-2021 End: 09-30-2022 Alcohol Use Disorder Identification Test - Consumption [AUDIT-C] [facility] Work Phone: How often to you hav e a drink containing alcohol? 2-4 times a month [facility] Work Phone: How many standard dr inks containing alcohol do you have on a typical day? 1 or 2 [facility] Work Phone: How often do you hav e 6 or more drinks on 1 occasion? Never [facility] Work Phone: Adult Depression Screening Assessment 0 [facility] Work Phone: NEGATED: Highlighted row - - WZ-Eceqffq-Yvfhs [place] Work Phone: Medical Equipment Procedure Code Equipment Code Equipment Origin al Text Equipment Identifier Dates Lens Acrysof Iq Toric 6mm +18 Diopter +2.25 Cylinder 0 D Biconvex Acrylic - [id number] Start: 06-24-2018 Lens Acrysof Iq Toric Stableforce 6mm 0 D +18.5 Diopter +1.5 Cylinder - [id number] Start: 07-08-2018 Functional Status Date Assessment Result Facility NEGATED: Highlighted row Functional performance Functional status health issues are not documented Disease XA-Nykzpkd-Kai[facility] [place] [facility] Work Phone: Mental Status Date Assessment Result Facility NEGATED: Highlighted row Cognitive function [Interpretation] Cognitive status health issues are not documented Disease NW-Ybnxbyk-Oympo [facility] Work Phone: Clinical Notes 01-21-2018 to 02-17-2023 Ashia Alva RPFT - 02/17/2023 7:56 AM Yonatan Alexander MD - 02/15/2023 3:02 PM EST Note Date & Type Note Facility 02-17-2023 Note HNO ID: [id number] Author: Petush, Ashia, RPFT Service: ? Author Type: Respiratory Therapist Type: Progress Notes Filed: 02/17/2023 7:58 AM Note Text: PULM FUNCTION SMARTBLOCK: Provider: Yonatan Sagastume MD Assisting Tech: Artie, Ashia, RPFT Spirometry w/BD: 1 LV - Box: 1 [facility] 02-17-2023 History of Present illness Narrative PULM FUNCTION SMARTBLOCK: Provider: Yonatan Sagastume MD Assisting Tech: Petshelia, Ashia, RPFT Spirometry w/BD: 1 LV - Box: 1 documented in this encounter [facility] 02-15-2023 Note HNO ID: [id number] Author: Rosalie Spivey RT(R) Service: ? Author Type: Supervisor Metalizing Type: Progress Notes Filed: 02/15/2023 3:29 PM Note Text: Radiology Service Progress Note PATIENT NAME: Madyson Ferris DATE OF SERVICE: February 15, 2023 TIME: 3:19 PM PATIENT IDENTITY VERIFICATION COMPLETED USING TWO (2) IDENTIFIERS: Name and Date of confirmed by patient verbally. FALL SCREENING: Has the patient had 2 falls in the last year or 1 fall with injury or currently using an Ambulatory Assistive Device (Walker, Cane, Wheelchair, Crutches, etc.)? No PATIENT GENDER DATA: Male PATIENT RELEVANT IMPLANT DATA REVIEWED: Yes RADIOLOGY DEPARTMENT: General X-ray: Exam(s) Completed: Chest X-Ray PERIPHERAL IV DATA: Not applicable SIGNED BY: RT Eliza(R) February 15, 2023 3:[address] [facility] 02-15-2023 Note HNO ID: [id number] Author: Yonatan Sagastume MD Service: ? Author Type: Physician Type: Progress Notes Filed: 02/15/2023 3:09 PM Note Text: This note was created using NoteWriter. Subjective Madyson Ferris is a 77 year old male. He continued with episodic coughing spells, productive of thick white phlegm, mentioned in May, reported resolved in the summer. No other symptoms were noted. Review of Systems Constitutional: Positive for fever. Negative for chills, diaphoresis and unexpected weight change. HENT: Negative for congestion, postnasal drip and sneezing. Respiratory: Negative for chest tightness, shortness of breath and wheezing. Cardiovascular: Negative for chest pain. Gastrointestinal: Negative for nausea and vomiting. ACTIVE PROBLEM LIST Actinic Keratosis History of Basal Cell Carcinoma of Skin History of Squamous Cell Carcinoma of Skin Hypercholesterolemia Chronic Cough Persistent Insomnia Social History Tobacco Use Smoking status: Never Smokeless tobacco: Never Vaping Use Vaping Use: Never used Substance Use Topics Alcohol use: Yes Alcohol/week: 2.0 standard drinks of alcohol Types: 2 Cans of Beer (12oz) per week Drug use: No Current Outpatient Medications Medication Sig wheat dextrin (BENEFIBER SUGAR FREE, DEXTRIN,) 3 gram/3.8 gram powd Take 2 teaspoonsful by mouth three times daily. COQ10, UBIQUINOL, ORAL Take 1 tablet by mouth once daily. Glucosamine-Chondroitin (OSTEO BI-FLEX) 250-200 mg tab Osteo Bi Flex Cholecalciferol, Vitamin D3, 5,000 unit cap Take 1 capsule by mouth once daily. albuterol HFA (PROVENTIL HFA, VENTOLIN HFA) 90 mcg/actuation inhaler Inhale 2 Puffs as instructed every 6 hours as needed for wheezing/shortness of breath. Inhalational Spacing Device 1 Device one time only for 1 dose. Current Facility-Administered Medications Medication Dose Route Frequency perflutren lipid microspheres 1.3 mL in NaCl (PF) 0.9% 10 mL injection (DEFINITY) INTRAVENOUS DIRECTED PRN sodium chloride 0.9 % (flush) 10 mL (BD POSIFLUSH) 10 mL INTRAVENOUS DIRECTED PRN Objective BP 130/74 (BP Site: Right Arm, BP Position: Sitting, BP Cuff Size: Large Adult) Pulse 68 Temp 36.8 ?C (98.3 ?F) (Temporal) Wt 83.5 kg (184 lb) SpO2 96% BMI 26.40 kg/m? Physical Exam Constitutional: General: He is not in acute distress. Appearance: He is not ill-appearing or diaphoretic. HENT: Nose: Nose normal. No congestion or rhinorrhea. Mouth/Throat: Mouth: Mucous membranes are moist. Pharynx: Oropharynx is clear. Neck: Trachea: Trachea normal. Cardiovascular: Rate and Rhythm: Normal rate. Pulmonary: Effort: No respiratory distress. Breath sounds: No stridor. Wheezing present. No rhonchi or rales. Musculoskeletal: Right lower leg: No edema. Left lower leg: No edema. Lymphadenopathy: Cervical: No cervical adenopathy. Neurological: Mental Status: He is alert. Assessment and Plan 1. Chronic cough - ICD9: 786.2, ICD10: R05.3 Bronchospasm. He had no prior history of asthma or COPD. - XR CHEST 2V FRONTAL/LAT - ALBUTEROL SULFATE HFA 90 MCG/ACTUATION AEROSOL INHALER - INHALATIONAL SPACING DEVICE - SPIROMETRY WITH DILATOR IF OBSTRUCTED - LUNG VOLUMES The proper method of use, as well as anticipated side effects, of this inhaler are discussed and demonstrated to the patient.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 teaspoonsful by mouth three times daily. COQ10, UBIQUINOL, ORAL Take 1 tablet by mouth once daily. Glucosamine-Chondroitin (OSTEO BI-FLEX) 250-200 mg tab Osteo Bi Flex Cholecalciferol, Vitamin D3, 5,000 unit cap Take 1 capsule by mouth once daily. pantoprazole DR (PROTONIX) 40 mg tablet Take 1 tablet by mouth daily before breakfast. Take on empty stomach, 1/2 hr before meal. Current Facility-Administered Medications Medication Dose Route Frequency perflutren lipid microspheres 1.3 mL in NaCl (PF) 0.9% 10 mL injection (DEFINITY) INTRAVENOUS DIRECTED PRN sodium chloride 0.9 % (flush) 10 mL (BD POSIFLUSH) 10 mL INTRAVENOUS DIRECTED PRN Objective BP 118/70 (BP Site: Left Arm, BP Position: Sitting, BP Cuff Size: Large Adult) Pulse 60 Temp 36.7 ?C (98.1 ?F) (Temporal) Resp 12 Wt 85.7 kg (189 lb) SpO2 95% BMI 27.12 kg/m? Physical Exam Constitutional: General: He is not in acute distress. Appearance: He is not diaphoretic. HENT: Right Ear: Tympanic membrane normal. Left Ear: Tympanic membrane normal. Nose: No congestion or rhinorrhea. Mouth/Throat: Pharynx: Oropharynx is clear. No oropharyngeal exudate or posterior oropharyngeal erythema. Cardiovascular: Rate and Rhythm: Regular rhythm. Bradycardia present. Heart sounds: No murmur heard. No gallop. Pulmonary: Breath sounds: Examination of the left-lower field reveals rales. Rales present. No wheezing or rhonchi. Abdominal: Tenderness: There is no abdominal tenderness. Lymphadenopathy: Cervical: No cervical adenopathy. Neurological: Mental Status: He is alert. Assessment and Plan 1. Chronic cough - ICD9: 786.2, ICD10: R05.3 (primary diagnosis) Try PPI for atypical GERD. - XR CHEST 2V FRONTAL/LAT - PANTOPRAZOLE 40 MG TABLET,DELAYED RELEASE 2. Hypercholesterolemia - ICD9: 272.0, ICD10: E78.00 - BENEFIBER SUGAR FREE (DEXTRIN) 3 GRAM/3.8 GRAM ORAL POWDER Yonatan Sagastume, [facility]03-27-2023 History of Present illness Narrative* Yonatan Sagastume MD - 06/01/2022 5:12 PM EDT This note was created using NoteWriter. Subjective Madyson Ferris is a 77 year old male who presents with complaint of cough- productive with small amount of white sputum for several months. He denies fever, night sweats, ear pain, nasal congestion, postnasal drainage, sore throat, dyspnea, wheezing, trouble swallowing, nausea, vomiting, diarrhea, sh ortness of breath, and weight loss. Treatments tried include OTC cough syrup and omeprazole for occasional acid reflux with minor relief of symptoms. He developed myalgias on atorvastatin so he stopped the medication for now. Review of Systems Per HPI. ACTIVE PROBLEM LIST Actinic Keratosis History of Basal Cell Carcinoma of Skin History of Squamous Cell Carcinoma of Skin Hypercholesterolemia Chronic Cough Social History Tobacco Use Smoking status: Never Smokeless tobacco: Never Vaping Use Vaping Use: Never used Substance Use Topics Alcohol use: Yes Alcohol/week: 2.0 standard drinks Types: 2 Cans of Beer (12oz) per week Drug use: No Current Outpatient Medications Medication Sig wheat dextrin (BENEFIBER SUGAR FREE, DEXTRIN,) 3 gram/3.8 gram powd Take 2 teaspoonsful by mouth three times daily. COQ10, UBIQUINOL, ORAL Take 1 tablet by mouth once daily. Glucosamine-Chondroitin (OSTEO BI-FLEX) 250-200 mg tab Osteo Bi Flex Cholecalciferol, Vitamin D3, 5,000 unit cap Take 1 capsule by mouth once daily. pantoprazole DR (PROTONIX) 40 mg tablet Take 1 tablet by mouth daily before breakfast. Take on empty stomach, 1/2 hr before meal. Current Facility-Administered Medications Medication Dose Route Frequency perflutren lipid microspheres 1.3 mL in NaCl (PF) 0.9% 10 mL injection (DEFINITY) INTRAVENOUS DIRECTED PRN sodium chloride 0.9 % (flush) 10 mL (BD POSIFLUSH) 10 mL INTRAVENOUS DIRECTED PRN Objective BP 118/70 (BP Site: Left Arm, BP Position: Sitting, BP Cuff Size: Large Adult) Pulse 60 Temp 36.7 C (98.1 F) (Temporal) Resp 12 Wt 85.7 kg (189 lb) SpO2 95% BMI 27.12 kg/m Physical Exam Constitutional: General: He is not in acute distress. Appearance: He is not diaphoretic. HENT: Right Ear: Tympanic membrane normal. Left Ear: Tympanic membrane normal. Nose: No congestion or rhinorrhea. Mouth/Throat: Pharynx: Oropharynx is clear. No oropharyngeal exudate or posterior oropharyngeal erythema. Cardiovascular: Rate and Rhythm: Regular rhythm. Bradycardia present. Heart sounds: No murmur heard. No gallop. Pulmonary: Breath sounds: Examination of the left-lower field reveals rales. Rales present. No wheezing or rhonchi. Abdominal: Tenderness: There is no abdominal tenderness. Lymphadenopathy: Cervical: No cervical adenopathy. Neurological: Mental Status: He is alert. Assessment and Plan 1. Chronic cough - ICD9: 786.2, ICD10: R05.3 (primary diagnosis) Try PPI for atypical GERD. - XR CHEST 2V FRONTAL/LAT - PANTOPRAZOLE 40 MG TABLET,DELAYED RELEASE 2. Hypercholesterolemia - ICD9: 272.0, ICD10: E78.00 - BENEFIBER SUGAR FREE (DEXTRIN) 3 GRAM/3.8 GRAM ORAL POWDER Yonatan Sagastume MD documented in this encounterGrand [facility]03-27-[facility] History of Past illness Narrative* Problem Noted Date Diagnosed Date Resolved Date Chronic cough 06/01/2022 10/29/2022 Elevated blood pressure reading 04/24/2022 06/01/2022 Rupture of right proximal biceps tendon 01/21/2018 04/21/2021 Bicipital tendinitis of right shoulder 11/26/2017 04/21/2021 Overview: [facility] PSA elevation 05/27/2017 04/01/2018 Overview: Dr. Sandip Srivastava, Urology. 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 05/28/2016 Sprain of neck 02/10/2013 05/28/2016 [id number] 04/08/2011 05/28/2016 Fissure in ano 04/08/2011 05/28/2016 Digital mucous cyst 02/26/2011 05/26/19 12 Esophagitis, unspecified 08/11/2006 Diaphragmatic hernia without mention of obstruction or gangrene 08/11/2006 05/28/2016 Acute gastritis without mention of hemorrhage 08/12/19 07 05/28/2016 Benign neoplasm of colon 02/04/2006 Diverticulosis of colon (wit hout mention of hemorrhage) 02/04/2006 05/28/2016 External hemorrhoids without mention of complication 02/04/2006 05/28/2016 Internal hemorrhoids without mention of complication 09/28/2005 05/28/2016 Other forms of migraine 05/07 Esophageal reflux 05/28/2016 documented as of this encounter (statuses as of 10/30/2022) [facility]03-[facility] History of Past illness Narrative* Problem Noted Date Diagnosed Date Resolved Date Chronic cough 06/01/2022 10/29/2022 Elevated blood pressure reading 04/24/2022 06/01/2022 Rupture of right proximal biceps tendon 01/21/2018 04/21/2021 Bicipital tendinitis of right shoulder 11/26/2017 04/21/2021 Overview: [facility] PSA elevation 05/27/2017 04/01/2018 Overview: Dr. Sandip Srivastava, Urology. 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 05/28/2016 Sprain of neck 02/10/2013 05/28/2016 [id number] 04/08/2011 05/28/2016 Fissure in ano 04/08/2011 05/28/2016 Digital mucous cyst 02/26/2011 05/26/19 12 Esophagitis, unspecified 08/11/2006 Diaphragmatic hernia without mention of obstruction or gangrene 08/11/2006 05/28/2016 Acute gastritis without mention of hemorrhage 08/12/19 07 05/28/2016 Benign neoplasm of colon 02/04/2006 Diverticulosis of colon (wit hout mention of hemorrhage) 02/04/2006 05/28/2016 External hemorrhoids without mention of complication 02/04/2006 05/28/2016 Internal hemorrhoids without mention of complication 09/28/2005 05/28/2016 Other forms of migraine 05/07 Esophageal reflux 05/28/2016 documented as of this encounter (statuses as of 12/12/2022) [facility]03-20-2023 NoteHNO ID: [id number] Author: Akhil Mcgowan APRN.[employer] Service: ? Author Type: Nurse Practitioner Type: Progress Notes Filed: 05/26/2022 10:49 AM Note Text: [facility] [place] Department of Cardiovascular Medicine SECTION OF CLINICAL CARDIOLOGY OUTPATIENT VISIT DATE May 25, 2022 OUTPATIENT VISIT TYPE ESTABLISHED Elements of this note, including but not limited to HPI, ROS, Physical Exam, Assessment and Plan were copied and pasted from previous office visit notes completed within our department. Updates have been made where appropriate/noted and reflect current exam and medical decision making from date of this visit. Patient Name: Madyson Ferris : 1945 PRIMARY CARE PHYSICIAN: Yonatan Sagastume MD CHIEF COMPLAINT: Patient presents with: Cardiology Follow Up : Chest discomfort mid chest x 2 weeks Interval Hx: Mr. Ferris comes for a follow up visit. The last office visit visit with Dr. Velázquez was 04/12/2020. Since last office visit patient has been feeling a sensation of heartburn in the evening Improved with Prilosec once daily in AM Never has happened after breakfast / lunch Worse with laying down. Walks 1 hour per day or uses an exercise bike with no sx Able to golf - push cart No symptoms while exercising A little breathless with resistance on bike Can walk 1-2 flights of stairs without sx. Not a good sleeper - 4 hours a night + nocturia --> then cannot shut his mind off. BP at home 130/70 Saw PCP for physical --> LDL was high. Was recommended for lipitor but he is not wanting to take this. No trouble with swallowing Good fluid intake [place] diet intake for IMPRESSION/PLAN: ASSESSMENT/PLAN: 1. Hypertension, unspecified type - ICD9: 401.9, ICD10: I10 (primary diagnosis) - fair control - No BP meds on board currently. - Encouraged dietary sodium restriction/DASH diet - Recommended regular aerobic exercise. - Recommend home blood pressure monitoring, to bring results in on next visit - Discussed need and benefit for weight loss. - Reviewed risks of HTN and principles of treatment - Goal of BP <130/80 - PERFLUTREN LIPID MICROSPHERES 1.1 MG/ML INJECTION IN NS 10 ML - SODIUM CHLORIDE 0.9 % (FLUSH) INJECTION SYRINGE - ECHO 2. Atypical chest pain - ICD9: 786.59, ICD10: R07.89 Atypical chest pain, symptoms are not consistent with cardiac ischemia due to nonexertional nature of symptom and accompanying GI symptoms possible etiology include GERD - recent stress test 04/19/2022: no ischemia or infarct - sx improved since starting Prilosec - check echo - will need PCP / GI follow up - PERFLUTREN LIPID MICROSPHERES 1.1 MG/ML INJECTION IN NS 10 ML - SODIUM CHLORIDE 0.9 % (FLUSH) INJECTION SYRINGE - ECHO 3. Hypercholesterolemia - ICD9: 272.0, ICD10: E78.00 - Last FLP 04/16/2022 - LDL 123 - started on lipitor 10 mg daily by PCP ---> patient has not started yet. Prefers more natural / supplement treatments. - discussed adding fiber to diet - Low fat / low cholesterol diet - increase activity and exercise - patient agreeable that if no improvement with diet and exercise that he will trial low dose statin. I spent a total of 32 minutes on the date of the service which included preparing to see the patient, [id number] patient care, completing clinical documentation, performing a medically appropriate examination, counseling and educating the patient/family/caregiver, independently interpreting results (not separately reported), and communicating results to the patient/family/caregiver. Thank you very much for allowing me to assist in the care of Madyson Ferris. The above information was discussed at length and detail with the patient who verbalized an understanding of the plan and was given ample opportunity to ask questions. The appropriate follow up has been arranged. I have advised the patient to contact me if any questions/problems arise prior to the follow up. Akhil Mcgowan APRN.[facility] Cardiology Nurse Practitioner Section of [facility] Dept of Cardiovascular Medicine [facility] [place] [address] [place] [address] Office Office May 25, 2022 12:28 PM This note was partially generated using [employer] voice recognition system and may contain errors related to that system including grammar, punctuation, spelling, and words that may be inappropriate. CARDIAC STUDIES: No results found for: LVEF LABS: Sodium (mmol/L) Date Value 04/16/2022 140 04/16/2021 139 03/14/2020 141 Potassium (mmol/L) Date Value 04/16/2022 4.5 04/16/2021 4.5 03/14/2020 4.5 BUN (mg/dL) Date Value 04/16/2022 24 04/16/2021 20 03/14/2020 19 09/26/2018 17 03/28/2018 20 Creatinine (mg/dL) Date Value 04/16/2022 1.10 04/16/2021 1.04 03/14/2020 0 (more content not included)...[facility]02-17-2023 NoteHNO ID: [id number] Author: Yonatan Sagastume MD Service: ? Author Type: Physician Type: Progress Notes Filed: 04/24/2022 3:19 PM Note Text: This note was created using [employer]. Subjective Madyson Ferris is a 77 year old male. His blood pressure was normal at home. BP was prehypertensive at times. Review of Systems Constitutional: Negative. Respiratory: Negative. Cardiovascular: Negative. Gastrointestinal: Negative. ACTIVE PROBLEM LIST Benign Neoplasm of Colon Gerd With Esophagitis Actinic Keratosis History of Basal Cell Carcinoma of Skin History of Squamous Cell Carcinoma of Skin Hypercholesterolemia Current Outpatient Medications Medication Sig COQ10, UBIQUINOL, ORAL Take 1 tablet by mouth once daily. Glucosamine-Chondroitin (OSTEO BI-FLEX) 250-200 mg tab Osteo Bi Flex Cholecalciferol, Vitamin D3, 5,000 unit cap Take 1 capsule by mouth once daily. No current facility-administered medications for this visit. Objective BP 132/78 Pulse 64 Resp 16 Ht 176.5 cm (5' 9.5 ) Wt 84.4 kg (186 lb) SpO2 98% BMI 27.07 kg/m? Physical Exam Constitutional: General: He is not in acute distress. Appearance: He is not ill-appearing. Cardiovascular: Rate and Rhythm: Normal rate and regular rhythm. Heart sounds: No murmur heard. No gallop. Pulmonary: Effort: Pulmonary effort is normal. Breath sounds: Normal breath sounds. Musculoskeletal: Right lower leg: No edema. Left lower leg: No edema. Neurological: Mental Status: He is alert. Component Latest Ref Rng AND Units 04/16/2022 WBC 3.70 - 11.00 k/uL 3.35 (L) RBC 4.20 - 6.00 m/uL 4.49 Hemoglobin 13.0 - 17.0 g/dL 14.7 Hematocrit 39.0 - 51.0 % 43.2 MCV 80.0 - 100.0 fL 96.2 MCH 26.0 - 34.0 pg 32.7 MCHC 30.5 - 36.0 g/dL 34.0 RDW-CV 11.5 - 15.0 % 14.2 Platelet Count 150 - 400 k/uL 170 MPV 9.0 - 12.7 fL 10.1 Neut% % 52.6 Abs Neut (ANC) 1.45 - 7.50 k/uL 1.76 Lymph% % 30.1 Abs Lymph 1.00 - 4.00 k/uL 1.01 Laporte% % 12.5 Abs [place] <0.87 k/uL 0.42 Eosin% % 3.3 Abs Eosin <0.46 k/uL 0.11 Baso% % 0.9 Abs Baso <0.11 k/uL 0.03 Immature Gran % % 0.6 IMMATURE GRANS (ABS) <0.10 k/uL <0.03 NRBC /100 WBC 0.0 Absolute nRBC <0.01 k/uL <0.01 DTYPE Auto Protein, Total 6.3 - 8.0 g/dL 7.0 Albumin 3.9 - 4.9 g/dL 4.2 Calcium 8.5 - 10.2 mg/dL 10.0 Bilirubin, Total 0.2 - 1.3 mg/dL 0.8 Alkaline Phosphatase 38 - 113 U/L 81 AST 14 - 40 U/L 18 ALT 10 - 54 U/L 14 Glucose 74 - 99 mg/dL 83 BUN 9 - 24 mg/dL 24 Creatinine 0.73 - 1.22 mg/dL 1.10 Sodium 136 - 144 mmol/L 140 Potassium 3.7 - 5.1 mmol/L 4.5 Chloride 97 - 105 mmol/L 104 CO2 22 - 30 mmol/L 26 Anion Gap 9 - 18 mmol/L 10 eGFR >=60 mL/min/1.73mA? 68 Cholesterol, Total <200 mg/dL 193 Triglyceride <150 mg/dL 50 HDL Cholesterol >39 mg/dL 60 Non HDL Cholesterol <130 mg/dL 133 (H) Fasting Time hrs 12 VLDL Cholesterol <30 mg/dL 10 TC:HDL Ratio <5.10 3.22 LDL Cholesterol <100 mg/dL 123 (H) LDL:HDL Ratio <2.54 2.05 Hemoglobin A1C 4.3 - 5.6 % 5.2 Estimated Average Glucose mg/dL 103 The 10-year ASCVD risk score (Miller JOYNER, et al., 2019) is: 31% Values used to calculate the score: Age: 77 years Sex: Male Is Non- : No Diabetic: No Tobacco smoker: No Systolic Blood Pressure: 132 mmHg Is BP treated: No HDL Cholesterol: 60 mg/dL Total Cholesterol: 193 mg/dL Assessment and Plan 1. Medicare annual wellness visit, subsequent - ICD9: V70.0, ICD10: Z00.00 (primary diagnosis) See wellness visit. 2. Elevated blood pressure reading - ICD9: 796.2, ICD10: R03.0 - Encouraged dietary sodium restriction/DASH diet - Recommended regular aerobic exercise. - Recommend home blood pressure monitoring, to bring results in on next visit - Reviewed risks of HTN and principles of treatment - Goal of BP <130/80 3. Hypercholesterolemia - ICD9: 272.0, ICD10: E78.00 Shared Medical Decision Making was done: Medication: atorvastatin. Benefits: Medication may help reduce CV risk in the assisted. Risks: Possible side effects were discussed including myalgia, liver inflammation. Possible interactions: n/a. Approved use or off label use: Yes. - ATORVASTATIN 10 MG TABLET - LIPID PANEL BASIC - COMP METABOLIC PANEL Yonatan Sagastume [facility]02-17-2023 NoteHNO ID: [id number] Author: Yonatan Sagastume MD Service: ? Author Type: Physician Type: Progress Notes Filed: 04/24/2022 3:19 PM Note Text: Madyson Ferris is a 77 year old male here for a Medicare Subsequent Annual Wellness Visit Health Risk Assessment In general, health is: Excellent Concerns with balance:Not at all Concerns with teeth or dentures:Not at all Concerns with sexual function:Not at all [place] anxious, stressed, angry, irritable, lonely, isolated, or had thoughts of hurting themself: Not at all Has little interest or pleasure in doing things: Not at all Bothered by feeling down, depressed, or hopeless: Not at all Needs help with grocery shopping, cooking, housework, bathing, grooming, dressing, eating, sitting or standing, walking, using the toilet, handling finances, taking medications, using the telephone, or driving: Yes Following safety precautions in the home environment and vehicle: removed throw rugs from floors, installed grab bars in the bathroom, handrails in stairwells, having adequate lighting, wearing seatbelt at all times?: Yes Smokes cigarettes, vapes, or chew tobacco: No Eats healthy foods including fruits, vegetables, whole grains, and fiber-rich foods: Nearly every day Number of days per week engages in exercise: 7 days Average alcohol consumption: 2-4 times a month Current Providers Specialists: I have reviewed specialist-related care of the patient in the medical record. Current care team: Patient Care Team: Yonatan Sagastume MD as PCP - General (Internal Medicine) Outside specialists seen: [facility] in [place]. Dr. Barrios, dentist. Dr. Moreno, gastroenterology. Dr. Huerta, ophthalmology. Medical/Family history review Reviewed and updated problem list, medical/surgical/family/social history, medications, and allergies. Opioid use review Patient is not currently using opioids. Depression screening Depression Screening PHQ-2 Score PHQ-9 Score 04/21/2021 0 - Depression screening tool completed and reviewed. Based on score and interview, patient is not at risk for depression. Screening tool discussed with patient, and I recommended no further intervention at this time. Cognitive screening Mini Cog Score: Score: 5 Cognitive screening reviewed and no further action needed (score 3-5) Functional Observation Was the patient's timed Up AND Go test unsteady or ? 12 seconds? No Advance Care Planning End of Life planning discussed, including patient's advanced directive wishes: Yes Measurements BP 132/78 Pulse 64 Resp 16 Ht 5' 9.5 (1.77m) Wt 186 lb (84.4kg) SpO2 98% BMI 27.08 kg/(m2). Visual acuity (required for Welcome to Medicare): follows with optometry/ophthalmology Hearing Evaluation: within normal limits Assessment/Plan - Counseled on healthy diet and regular exercise - Discussed need for and benefit of weight loss. BMI 27.07 kg/(m2) - [facility] History of Present illness Narrative* Yonatan Sagastume MD - 04/24/2022 2:51 PM EST This note was created using [employer]riter. Subjective Madyson Ferris is a 77 year old male. His blood pressure was normal at home. BP was prehypertensive at times. Review of Systems Constitutional: Negative. Respiratory: Negative. Cardiovascular: Negative. Gastrointestinal: Negative. ACTIVE PROBLEM LIST Benign Neoplasm of Colon Gerd With Esophagitis Actinic Keratosis History of Basal Cell Carcinoma of Skin History of Squamous Cell Carcinoma of Skin Hypercholesterolemia Current Outpatient Medications Medication Sig COQ10, UBIQUINOL, ORAL Take 1 tablet by mouth once daily. Glucosamine-Chondroitin (OSTEO BI-FLEX) 250-200 mg tab Osteo Bi Flex Cholecalciferol, Vitamin D3, 5,000 unit cap Take 1 capsule by mouth once daily. No current facility-administered medications for this visit. Objective BP 132/78 Pulse 64 Resp 16 Ht 176.5 cm (5' 9.5 ) Wt 84.4 kg (186 lb) SpO2 98% BMI 27.07kg/m Physical Exam Constitutional: General: He is not in acute distress. Appearance: He is not ill-appearing. Cardiovascular: Rate and Rhythm: Normal rate and regular rhythm. Heart sounds: No murmur heard. No gallop. Pulmonary: Effort: Pulmonary effort is normal. Breath sounds: Normal breath sounds. Musculoskeletal: Right lower leg: No edema. Left lower leg: No edema. Neurological: Mental Status: He is alert. Component Latest Ref Rng & Units 04/16/2022 WBC 3.70 - 11.00 k/uL 3.35 (L) RBC 4.20 - 6.00 m/uL 4.49 Hemoglobin 13.0 - 17.0 g/dL 14.7 Hematocrit 39.0 - 51.0 % 43.2 MCV 80.0 - 100.0 fL 96.2 MCH 26.0 - 34.0 pg 32.7 MCHC 30.5 - 36.0 g/dL 34.0 RDW-CV 11.5 - 15.0 % 14.2 Platelet Count 150 - 400 k/uL 170 MPV 9.0 - 12.7 fL 10.1 Neut% % 52.6 Abs Neut (ANC) 1.45 - 7.50 k/uL 1.76 Lymph% % 30.1 Abs Lymph 1.00 - 4.00 k/uL 1.01 Laporte% % 12.5 Abs Laporte <0.87 k/uL 0.42 Eosin% % 3.3 Abs Eosin <0.46 k/uL 0.11 Baso% % 0.9 Abs Baso <0.11 k/uL 0.03 Immature Gran % % 0.6 IMMATURE GRANS (ABS) <0.10 k/uL <0.03 NRBC /100 WBC 0.0 Absolute nRBC <0.01 k/uL <0.01 DTYPE Auto Protein, Total 6.3 - 8.0 g/dL 7.0 Albumin 3.9 - 4.9 g/dL 4.2 Calcium 8.5 - 10.2 mg/dL 10.0 Bilirubin, Total 0.2 - 1.3 mg/dL 0.8 Alkaline Phosphatase 38 - 113 U/L 81 AST 14 - 40 U/L 18 ALT 10 - 54 U/L 14 Glucose 74 - 99 mg/dL 83 BUN 9 - 24 mg/dL 24 Creatinine 0.73 - 1.22 mg/dL 1.10 Sodium 136 - 144 mmol/L 140 Potassium 3.7 - 5.1 mmol/L 4.5 Chloride 97 - 105 mmol/L 104 CO2 22 - 30 mmol/L 26 Anion Gap 9 - 18 mmol/L 10 eGFR >=60 mL/min/1.73m 68 Cholesterol, Total <200 mg/dL 193 Triglyceride <150 mg/dL 50 HDL Cholesterol >39 mg/dL 60 Non HDL Cholesterol <130 mg/dL 133 (H) Fasting Time hrs 12 VLDL Cholesterol <30 mg/dL 10 TC:HDL Ratio <5.10 3.22 LDL Cholesterol <100 mg/dL 123 (H) LDL:HDL Ratio <2.54 2.05 Hemoglobin A1C 4.3 - 5.6 % 5.2 Estimated Average Glucose mg/dL 103 The 10-year ASCVD risk score (Miller JOYNER, et al., 2019) is: 31% Values used to calculate the score: Age: 77 years Sex: Male Is Non- : No Diabetic: No Tobacco smoker: No Systolic Blood Pressure: 132 mmHg Is BP treated: No HDL Cholesterol: 60 mg/dL Total Cholesterol: 193 mg/dL Assessment and Plan 1. Medicare annual wellness visit, subsequent - ICD9: V70.0, ICD10: Z00.00 (primary diagnosis) See wellness visit. 2. Elevated blood pressure reading - ICD9: 796.2, ICD10: R03.0 - Encouraged dietary sodium restriction/DASH diet - Recommended regular aerobic exercise. - Recommend home blood pressure monitoring, to bring results in on next visit - Reviewed risks of HTN and principles of treatment - Goal of BP <130/80 3. Hypercholesterolemia - ICD9: 272.0, ICD10: E78.00 Shared Medical Decision Making was done: Medication: atorvastatin. Benefits: Medication may help reduce CV risk in the assisted. Risks: Possible side effects were discussed including myalgia, liver inflammation. Possible interactions: n/a. Approved use or off label use: Yes. - ATORVASTATIN 10 MG TABLET - LIPID PANEL BASIC - COMP METABOLIC PANEL Yonatan Sagastume MD * Yonatan Sagastume MD - 04/24/2022 2:44 PM EST Madyson Ferris is a 77 year old male here for a Medicare Subsequent Annual Wellness Visit Health Risk Assessment In general, health is: Excellent Concerns with balance:Not at all Concerns with teeth or dentures:Not at all Concerns with sexual function:Not at all [place] anxious, stressed, angry, irritable, lonely, isolated, or had thoughts of hurting themself: Not at all Has little interest or pleasure in doing things: Not at all Bothered by feeling down, depressed, or hopeless: Not at all Needs help with grocery shopping, cooking, housework, bathing, grooming, dressing, eating, sitting or standing, walking, using the toilet, handling finances, taking medications, using the telephone, or driving: Yes Following safety precautions in the home environment and vehicle: removed throw rugs from floors, installed grab bars in the bathroom, handrails in stairwells, having adequate lighting, wearing seatbelt at all times?: Yes Smokes cigarettes, vapes, or chew tobacco: No Eats healthy foods including fruits, vegetables, whole grains, and fiber-rich foods: Nearly every day Number of days per week engages in exercise: 7 days Average alcohol consumption: 2-4 times a month Current Providers Specialists: I have reviewed specialist-related care of the patient in the medical record. Current care team: Patient Care Team: Yonatan Sagastume MD as PCP - General (Internal Medicine) Outside specialists seen: [facility] in [place]. Dr. Barrios, dentist. Dr. Moreno, gastroenterology. Dr. Huerta, ophthalmology. Medical/Family history review Reviewed and updated problem list, medical/surgical/family/social history, medications, and allergies. Opioid use review Patient is not currently using opioids. Depression screening Depression Screening PHQ-2 Score PHQ-9 Score 04/21/2021 0 - Depression screening tool completed and reviewed. Based on score and interview, patient is not at risk for depression. Screening tool discussed with patient, and I recommended no further interventionat this time. Cognitive screening Mini Cog Score: Score: 5 Cognitive screening reviewed and no further action needed (score 3-5) Functional Observation Was the patient's timed Up & Go test unsteady or ? 12 seconds? No Advance Care Planning End of Life planning discussed, including patient's advanced directive wishes: Yes Measurements BP 132/78 Pulse 64 Resp 16 Ht 5' 9.5 (1.77m) Wt 186 lb (84.4kg) SpO2 98% BMI 27.08 kg/(m^2). Visual acuity (required for Welcome to Medicare): follows with optometry/ophthalmology Hearing Evaluation: within normal limits Assessment/Plan - Counseled on healthy diet and regular exercise - Discussed need for and benefit of weight loss. BMI 27.07 kg/(m^2) - Depression screening documented in this encounterCleveland [id number] Nurse Note* Carrol Camarena LPN - 04/24/2022 2:18 PM EST VISUAL ACUITY: Today's exam: Vision Correction? No vision correction: RIGHT EYE: 20/20 LEFT EYE: 20/ 30 BOTH EYES: 20/25 documented in this encounterGrand [facility] History of Past illness Narrative* Problem Noted Date Resolved Date Elevated blood pressure reading 04/24/2022 06/01/2022 Rupture of right proximal biceps tendon 01/22/20 18 04/21/2021 Bicipital tendinitis of right shoulder 8 04/21/2021 Overview: [facility] PSA elevation 05/27/2017 04/01/2018 Overview: Dr. Sandip Srivastava, Urology. GERD with esophagitis 02/04/2016 04/24/2022 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/13/2013 05/28/2016 Sprain of neck 02/10/2013 05/28/2016 [id number]-oz-[id number] 04/08/2011 05/28/2016 Fissure in ano 04/08/2011 05/28/2016 Digital mucous cyst 02/26/2011 05/26/2011 Esophagitis, unspecified 08/11/2006 017 Diaphragmatic hernia without mention of obstruction or gangrene 08/11/2006 05/28/2016 Acute gastritis without mention of hemorrhage 05/28/2016 Benign neoplasm of colon 02/04/2006 023 Diverticulosis of colon (without mention of hemo rrhage) 02/04/2006 05/28/2016 External hemorrhoids without mention of complica tion 02/04/2006 05/28/2016 Internal hemorrhoids without mention of complica tion 09/28/2005 05/28/2016 Other forms of migraine 05/29/19 17 Esophageal reflux 05/28/2016 documented as of this encounter (statuses as of 06/02/2022) [facility] History of Past illness Narrative* Problem Noted Date Resolved Date Elevated blood pressure reading 04/24/2022 06/01/2022 Rupture of right proximal biceps tendon 01/22/20 18 04/21/2021 Bicipital tendinitis of right shoulder 8 04/21/2021 Overview: [facility] PSA elevation 05/27/2017 04/01/2018 Overview: Dr. Sandip Srivastava, Urology. GERD with esophagitis 02/04/2016 04/24/2022 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/13/2013 05/28/2016 Sprain of neck 02/10/2013 05/28/2016 [id number] 04/08/2011 05/28/2016 Fissure in ano 04/08/2011 05/28/2016 Digital mucous cyst 02/26/2011 05/26/2011 Esophagitis, unspecified 08/11/2006 017 Diaphragmatic hernia without mention of obstruction or gangrene 08/11/2006 05/28/2016 Acute gastritis without mention of hemorrhage 05/28/2016 Benign neoplasm of colon 02/04/2006 023 Diverticulosis of colon (without mention of hemo rrhage) 02/04/2006 05/28/2016 External hemorrhoids without mention of complica tion 02/04/2006 05/28/2016 Internal hemorrhoids without mention of complica tion 09/28/2005 05/28/2016 Other forms of migraine 05/29/19 17 Esophageal reflux 05/28/2016 documented as of this encounter (statuses as of 06/05/2022) [facility] History of Past illness Narrative* Problem Noted Date Diagnosed Date Resolved Date Elevated blood pressure reading 04/24/2022 06/01/2022 Rupture of right proximal biceps tendon 01/21/2018 04/21/2021 Bicipital tendinitis of right shoulder 11/26/2017 04/21/2021 Overview: [facility] PSA elevation 05/27/2017 04/01/2018 Overview: Dr. Sandip Srivastava, Urology. 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 05/28/2016 Sprain of neck 02/10/2013 05/28/2016 [id number]-[id number] 04/08/2011 05/28/2016 Fissure in ano 04/08/2011 05/28/2016 Digital mucous cyst 02/26/2011 05/26/19 12 Esophagitis, unspecified 08/11/2006 Diaphragmatic hernia without mention of obstruction or gangrene 08/11/2006 05/28/2016 Acute gastritis without mention of hemorrhage 08/12/19 07 05/28/2016 Benign neoplasm of colon 02/04/2006 Diverticulosis of colon (wit hout mention of hemorrhage) 02/04/2006 05/28/2016 External hemorrhoids without mention of complication 02/04/2006 05/28/2016 Internal hemorrhoids without mention of complication 09/28/2005 05/28/2016 Other forms of migraine 05/07 Esophageal reflux 05/28/2016 documented as of this encounter (statuses as of 10/01/2022) [facility] Miscellaneous Notes* Telephone Encounter - Kapil Snow Ma - 04/13/2022 10:50 AM EST Patient notified, verbalized understanding. Kapil Snow Ma * Telephone Encounter - Evelyn Peña LPN - 04/09/2022 9:18 AM EST Pt calling for fasting lab orders. Pt has an apt on 04-24-22 and would like to get the lab work doneprior to apt. Please advise pt when fasting lab orders are in epic. Okay to leave a detailed message. Evelyn Peña LPN documented in this encounterGrand [facility]10[facility] Instructions* Patient Instructions* Shraddha Hu APRN.CNP - 12/24/2021 8:13 AM EDT Start Flonase over the counter. Use daily for two weeks and let me know if your symptoms don't improve documented in this encounterGrand [facility]10-[facility] History of Present illness Narrative* Shraddha Hu APRN.CNP - 12/24/2021 8:07 AM EDT CC: Patient presents with: Cough: Mucous several months HPI Madyson Ferris is a 76 year old male who presents today for above. Patient reports mucus in the backof his throat that makes him cough or clear his throat a couple times a day. Cough is mostly non-productive but does occasionally bring up clear mucus. He denies recent respiratory infection. Denies wheezing, SOB, hemoptysis, runny nose, nasal congestion, post nasal drainage, sore throat, dysphagia, odynophagia, heartburn/reflux symptoms. No history of seasonal/environmental allergies or respiratory disease such as asthma. Has never smoked. He is not taking anything for the cough. He has a family history of Santana's and esophageal cancer however EGD in 2020 was essentially normal. REVIEW OF SYSTEMS General: no fevers, no chills, no night sweats, no change in energy, and no significant changes in weight Respiratory: See HPI Cardiovascular: no chest pain, no chest pressure, no palpitations, and no swelling PAST MEDICAL HISTORY Diagnosis Date Acute gastritis without mention of hemorrhage Arthritis Benign neoplasm of colon 2006 adenomatous COVID-19 02/20/2021 Diaphragmatic hernia without mention of obstruction or gangrene Diverticulosis of colon (without mention of hemorrhage) Esophageal reflux External hemorrhoids without mention of complication Veftqqm-tx-lkc 04/08/2011 GERD with esophagitis 02/04/2016 History of basal cell carcinoma 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 John, urology Pseudophakia of both eyes Rupture of right proximal biceps tendon 01/21/2018 Snoring PAST SURGICAL HISTORY Procedure Laterality Date ARTHRP KNE CONDYLE&PLATU MEDIAL&LAT COMPARTMENTS Right 01/10/2019 COLONOSCOPY 12/15/2013 COLONOSCOPY FLX DX W/COLLJ SPEC WHEN PFRMD 11/2004 Colonoscopy COLSC FLX W/RMVL OF TUMOR POLYP LESION SNARE TQ 02/04/2006 COLSC FLX W/RMVL OF TUMOR POLYP LESION SNARE TQ 01/01/2009 polyp in rectum EGD 12/15/2013 EGD 04/18/2020 EGD TRANSORAL BIOPSY SINGLE/MULTIPLE 08/11/2006 EGD TRANSORAL BIOPSY SINGLE/MULTIPLE 01/01/2009 gastritis EGD TRANSORAL BIOPSY SINGLE/MULTIPLE 01/28/2016 gastritis, reflux esophagitis - recommend follow up in 5 years EXCISION OF SKIN GRAFT 2012 Lower lip SCC EYE SURGERY HX HEMORRHOIDECTOMY INT & XTRNL 2/> COLUMN/GRABIEL 05/03/2007 HERNIA REPAIR HX JOINT REPLACEMENT HX KNEE ARTHROSCOP MENISCUS REPAIR MED/LAT 03/2015 right knee MOHS HEAD/NECK ADD STAGE<=5 12/2012 SCC Lower lip PAST SURGICAL HISTORY OF 1979 BONE SPURS- bilateral heel. 1980s. PAST SURGICAL HISTORY OF 03/2011 right foot surgery for bone spurs PAST SURGICAL HISTORY OF 03/2011 left ring finger to remove a ganglion cyst RPR 1ST INGUN HRNA AGE 3 YRS/> REDUCIBLE 1979 Hernia repair, inguinal. SKIN BIOPSY HX TRURL ELECTROSURG RESCJ PROSTATE BLEED COMPLETE 03/10/2019 [facility] [place] XCAPSL CTRC RMVL INSJ IO LENS PROSTH W/O ECP Right 06/24/2018 Cataract Extraction with PC IOL XCAPSL CTRC RMVL INSJ IO LENS PROSTH W/O ECP Left 07/08/2018 Cataract Extraction with PC IOL ALLERGIES Patient has no known allergies. MEDICATIONS COQ10, UBIQUINOL, ORAL Take 1 tablet by mouth once daily. Glucosamine-Chondroitin (OSTEO BI-FLEX) 250-200 mg tab Osteo Bi Flex Cholecalciferol, Vitamin D3, 5,000 unit cap Take 1 capsule by mouth once daily. omeprazole (PRILOSEC) 20 mg capsule Take 1 capsule by mouth once daily. L-LYSINE ORAL Take 500 mg by mouth once daily. FAMILY HISTORY Problem Relation Age of Onset None Mother natural causes No Ocular Disease Mother Cancer Father [place] lymphoma No Ocular Disease Father No Known Problems Brother Barretts Esophagus Sister other (kidney transplant) Sister Cancer Brother 59 stomach & esoph cancer Social History Tobacco Use Smoking status: Never Smokeless tobacco: Never Vaping Use Vaping Use: Never used Substance Use Topics Alcohol use: Yes Alcohol/week: 2.0 standard drinks Types: 2 Cans of Beer (12oz) per week Drug use: No PHYSICAL EXAM BP 176/84 Pulse 60 Temp 36.3 C (97.3 F) (Temporal) Resp 14 Wt 84.4 kg (186 lb) BMI 25.23 kg/m General Appearance: well appearing, in no acute distress, alert Neck: Neck supple, No adenopathy Oropharynx: lips normal without lesions, tongue midline and normal, soft palate, uvula, and tonsilsnormal Lymph nodes: No supraclavicular lymphadenopathy Lungs: Lungs clear to auscultation. No wheezing, rhonchi, rales. Heart: RRR without murmur, gallop, or rubs. No ectopy ASSESSMENT/PLAN: 1. Subacute cough - ICD9: 786.2, ICD10: R05.2 Suspect due to post nasal drainage. No alarm symptoms or exam findings. Start Flonase OTC He was instructed to let me know in two weeks if symptoms don't improve Prescription instructions reviewed with patient as applicable. Potential red flag symptoms discussed with the patient. Reviewed appropriate action plan to take if red flag symptoms occur. Patient agreeable to treatment plan. Shraddha Hu APRN.CNP documented in this encounterGrand [facility]08[facility] History of Present illness Narrative* Ruth Warren LPN - 10/07/2021 2:35 PM EDT Patient presents for COVID booster. Denies any problems at this time. Tolerated injection well. Ruth Warren LPN documented in this encounterGrand Lake [facility]04-[facility] History of Present illness Narrative* Darrion Blackwell MD - 06/25/2021 10:03 AM EDT FOLLOW UP VISIT - ENDOSCOPY - RECURRENT SYMPTOMS NAME: Madyson Ferris [facility] NO.: [id number] DATE OF SERVICE:June 24, 2021 : 1945 REFERRING PHYSICIAN: Yonatan Sagastume MD Madyson is a patient I am following for history of reflux and family history of esophageal cancer andBarrett's esophagitis. Madyson notes no current complaints. He does have a history of gastroesophageal reflux. He currently denies significant burning reflux or dysphagia. He underwent prior upper endoscopy in January 2016.This demonstrated erythema in the duodenal bulb, chronic gastritis and what was felt to be nonsevere reflux esophagitis. Pathology at that time demonstrated: FINAL DIAGNOSIS 1. Gastric antrum, biopsy (A) - Reactive gastropathy. 2. Gastric polyp, biopsy (B) - Possible fundic gland polyp associated with mucosal prolapse. - No evidence of dysplasia. 3. Esophagus, biopsy (C) - Fragments of squamous mucosa and mildly inflamed cardiofundic-type mucosa. - No evidence of intestinal metaplasia or dysplasia. JRG/mal/12/18/2013 The patient had a normal colonoscopy at that time also. Madyson has siblings who has always esophageal cancer in Santana's esophagitis. Given his family history he is anxious about his risk for esophageal issues. I performed upper endoscopy on April 18, 2020. The patient was found to have minimal gastritis minimal esophagitis and minimal duodenitis. Pathology demonstrated: FINAL DIAGNOSIS 1. Antrum, biopsy (A) - Antral and fundic mucosa with mild reactive foveolar hyperplasia. - No evidence of H. pylori. 2. Distal esophagus, biopsy (B) - Reactive squamous mucosa with features of erosion. - Inflamed cardiac mucosa, no evidence of intestinal metaplasia or dysplasia. The patient notes no complaints since the procedure and restarting his PPI. He returns now noting that he had stopped his PPIs but now notes recurrence of his reflux type symptoms. VITALS: Blood pressure 162/87, pulse 80, temperature 36.7 C (98.1 F), temperature source Temporal, height 182.9 cm (6'), weight 86.6 kg (191 lb), SpO2 99 %. On examination, the abdomen is benign. Assessment IMPRESSION: Distal esophagitis, reflux, negative for Santana's esophagitis, recurrent symptoms oncehe stopped proton pump inhibitors. PLAN: The patient was concerned knowing that the instructions say do not take proton pump inhibitors for more than 2 weeks. I discussed with the patient since he has stopped his proton pump inhibitors and his reflux symptoms recurred I am comfortable with him taking fpvj-soe-uruqept Prilosec 20 mg indefinitely. At this point I recommend he take it for 6 months stop it at that time and see if his symptoms return or not. Given his otherwise unremarkable upper endoscopy last year I do not feel he needs another upper endoscopy. Diagnoses: (K21.00) Gastroesophageal reflux disease with esophagitis, unspecified whether hemorrhage (primary encounter diagnosis) Return to Clinic: The patient is instructed to follow-up with me as needed. Darrion Blackwell MD documented in this encounterGrand Lake [facility]04-07-[facility]22 History of Present illness Narrative* Mac Rodríguez MD - 06/12/2021 8:47 AM EDT Mac Rodríguez MD Department of Orthopaedics Orthopaedics [address] [place] [id number] Dept: [phone] Dept June 12, 2021 CHIEF COMPLAINT: New of the Left Hand and Dupuytren's contracture left hand (Last seen 05/05/18 leftindex finger joint swelling with injection given) HPI Patient states about 3 years ago his started having a hard cord in the palm of his left hand. Patient is ambidextrous. Denies any pain today. States the cord has not interfered with his golf game. 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 Very distinct cord in the palm without any contracture more than 1 or 2 degrees of the MCP joint. If anything, a needle procedure would be reasonable considering his very distinct palmar cord. FOLLOW UP INSTRUCTIONS: As needed Mr. Madyson Ferris was advised as to contrast therapies and/or to take analgesics/anti-inflammatories as needed and all contraindications were reviewed. OBJECTIVE: Mr. Madyson Ferris is a pleasant 76 year old in no apparent distress. Gen:There were no vitals taken for this visit. nl development, non obese, no deformities ENT: Normocephalic, normal hearing, moist mucosa CV: Pulses:Radial= 2+ and symmetric, capillary refill < 2 secs, no peripheral edema/varicosities Skin: no rash, bruising or lesions. Good turgor. Psych: cooperative and appropriate, alert and oriented x 3, good mood and affect. Musculoskeletal: Palmar cord in the ring finger ray also slightly affecting the middle finger but no more than a fewdegrees at the MCP joints. 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 Glassware Maker Demonstrator: ALBARO Transcribe Date/Time: Jun 12 2021 8:49A Dictated by : MIGUEL PADILLA DO This examination was interpreted and the report reviewed and electronically signed by: MIGUEL PADILLA DO on Jun 12 2021 8:55AM EST Results-Findings * * *Final Report* * * DATE OF EXAM: Jun 12 2021 8:13AM [id number] - XR HAND 3V PA/LAT/OBL LT / PROCEDURE REASON: Pain * * * * Physician Interpretation * * * * EXAMINATION: XR HAND 3V PA/LAT/OBL LT PATIENT/TECHNOLOGIST PROVIDED HISTORY: left hand deformity anterior 3rd-4th MC, no injury CLINICAL INFORMATION: 76 years old Male with Pain TECHNIQUE: XR HAND 3V PA/LAT/OBL LT Laterality: LEFT Number of different views (projections): 3 COMPARISON: None RESULT: Severe degenerative change 2nd through 5th DIP joints with marked joint space narrowing, marginal osteophyte formation and subchondral changes. Mild-moderate scattered degenerative changes at the PIP joints and thumb IP joint. Mild degenerative change first CMC joint. Remainder of the joint spaces are maintained. Degenerative/reactive cysts in the ulnar head. No fracture. No erosions or other significant abnormality. 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 John, urology Pseudophakia of both eyes Rupture of right proximal biceps tendon 01/21/2018 Snoring Past Surgical History: PAST SURGICAL HISTORY Procedure Laterality Date ARTHRP KNE CONDYLE&PLATU MEDIAL&LAT COMPARTMENTS Right 01/10/2019 COLONOSCOPY 12/15/2013 COLONOSCOPY FLX DX W/COLLJ SPEC WHEN PFRMD 11/2004 Colonoscopy COLSC FLX W/RMVL OF TUMOR POLYP LESION SNARE TQ 02/04/2006 COLSC FLX W/RMVL OF TUMOR POLYP LESION SNARE TQ 01/01/2009 polyp in rectum EGD 12/15/2013 EGD 04/18/2020 EGD TRANSORAL BIOPSY SINGLE/MULTIPLE 08/11/2006 EGD TRANSORAL BIOPSY SINGLE/MULTIPLE 01/01/2009 gastritis EGD TRANSORAL BIOPSY SINGLE/MULTIPLE 01/28/2016 gastritis, reflux esophagitis - recommend follow up in 5 years EXCISION OF SKIN GRAFT 2012 Lower lip SCC EYE SURGERY HX HEMORRHOIDECTOMY INT & XTRNL 2/> COLUMN/GRABIEL 05/03/2007 HERNIA REPAIR HX JOINT REPLACEMENT HX KNEE ARTHROSCOP MENISCUS REPAIR MED/LAT 03/2015 right knee MOHS HEAD/NECK ADD STAGE<=5 12/2012 SCC Lower lip PAST SURGICAL HISTORY OF 1979 BONE SPURS- bilateral heel. 1980s. PAST SURGICAL HISTORY OF 03/2011 right foot surgery for bone spurs PAST SURGICAL HISTORY OF 03/2011 left ring finger to remove a ganglion cyst RPR 1ST INGUN HRNA AGE 3 YRS/> REDUCIBLE 1980 Hernia repair, inguinal. SKIN BIOPSY HX TRURL ELECTROSURG RESCJ PROSTATE BLEED COMPLETE 03/10/2019 [facility] [place] XCAPSL CTRC RMVL INSJ IO LENS PROSTH W/O ECP Right 06/24/2018 Cataract Extraction with PC IOL XCAPSL CTRC RMVL INSJ IO LENS PROSTH W/O ECP Left 07/08/2018 Cataract Extraction with PC IOL Family History: FAMILY HISTORY Problem Relation Age of Onset None Mother natural causes No Ocular Disease Mother Cancer Father [place] lymphoma No Ocular Disease Father No Known Problems Brother Barretts Esophagus Sister other (kidney transplant) Sister Cancer Brother 59 stomach & esoph cancer Social History: Social History Tobacco Use Smoking status: Never Smoker Smokeless tobacco: Never Used Vaping Use Vaping Use: Never used Substance Use Topics Alcohol use: Yes Alcohol/week: 2.0 standard drinks Types: 2 Cans of Beer (12oz) per week Drug use: No Medications: Current Outpatient Medications Medication Sig COQ10, UBIQUINOL, ORAL Take 1 tablet by mouth once daily. L-LYSINE ORAL Take 500 mg by mouth once daily. Glucosamine-Chondroitin (OSTEO BI-FLEX) 250-200 mg tab Osteo Bi Flex Cholecalciferol, Vitamin D3, 5,000 unit cap Take 1 capsule by mouth once daily. No current facility-administered medications for this visit. Allergies: Patient has no known allergies. ROS: General (negative for fatigue, malaise, weight loss/gain) HEENT (negative for headache, earache, recent vision changes, sinus pain, sore throat) Respiratory (no recent shortness of breath, hemoptysis) CV (negative for chest tightness, palpitations) Musculoskeletal (see HPI) Psych (no depression, anxiety) REFERRING PHYSICIAN: Mr. Madyson Ferris was referred to me for consultation by the following physician. This consultation note will be sent to the following physician by either mail or electronic medical record. SELF Yonatan Sagastume MD [address] [facility] [id number] Mac Rodríguez MD [facility] of Past illness Narrative* Problem Noted Date Resolved Date Rupture of right proximal biceps tendon 01/22/20 18 04/21/2021 Bicipital tendinitis of right shoulder 8 04/21/2021 Overview: [facility] PSA elevation 05/27/2017 04/01/2018 Overview: Dr. Sandip Srivastava, Urology. 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/13/2013 05/28/2016 Sprain of neck 02/10/2013 05/28/2016 Ajdnogp-uh-plq 04/08/2011 05/28/2016 Fissure in ano 04/08/2011 05/28/2016 Digital mucous cyst 02/26/2011 05/26/2011 Esophagitis, unspecified 08/11/2006 017 Diaphragmatic hernia without mention of obstruction or gangrene 08/11/2006 05/28/2016 Acute gastritis without mention of hemorrhage 05/28/2016 Diverticulosis of colon (without mention of hemo rrhage) 02/04/2006 05/28/2016 External hemorrhoids without mention of complica tion 02/04/2006 05/28/2016 Internal hemorrhoids without mention of complica tion 09/28/2005 05/28/2016 Other forms of migraine 05/29/19 17 Esophageal reflux 05/28/2016 documented as of this encounter (statuses as of 06/12/2021) [facility] History of Past illness Narrative* Problem Noted Date Resolved Date Rupture of right proximal biceps tendon 01/22/20 18 04/21/2021 Bicipital tendinitis of right shoulder 8 04/21/2021 Overview: [facility] PSA elevation 05/27/2017 04/01/2018 Overview: Dr. Sandip Srivastava, Urology. 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/13/2013 05/28/2016 Sprain of neck 02/10/2013 05/28/2016 Vviikmo-ce-hlr 04/08/2011 05/28/2016 Fissure in ano 04/08/2011 05/28/2016 Digital mucous cyst 02/26/2011 05/26/2011 Esophagitis, unspecified 08/11/2006 017 Diaphragmatic hernia without mention of obstruction or gangrene 08/11/2006 05/28/2016 Acute gastritis without mention of hemorrhage 05/28/2016 Diverticulosis of colon (without mention of hemo rrhage) 02/04/2006 05/28/2016 External hemorrhoids without mention of complica tion 02/04/2006 05/28/2016 Internal hemorrhoids without mention of complica tion 09/28/2005 05/28/2016 Other forms of migraine 05/29/19 17 Esophageal reflux 05/28/2016 documented as of this encounter (statuses as of 06/25/2021) [facility] History of Past illness Narrative* Problem Noted Date Resolved Date Rupture of right proximal biceps tendon 01/22/20 18 04/21/2021 Bicipital tendinitis of right shoulder 8 04/21/2021 Overview: [facility] PSA elevation 05/27/2017 04/01/2018 Overview: Dr. Sandip Srivastava, Urology. 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/13/2013 05/28/2016 Sprain of neck 02/10/2013 05/28/2016 Orxfupa-ah-gus 04/08/2011 05/28/2016 Fissure in ano 04/08/2011 05/28/2016 Digital mucous cyst 02/26/2011 05/26/2011 Esophagitis, unspecified 08/11/2006 017 Diaphragmatic hernia without mention of obstruction or gangrene 08/11/2006 05/28/2016 Acute gastritis without mention of hemorrhage 05/28/2016 Diverticulosis of colon (without mention of hemo rrhage) 02/04/2006 05/28/2016 External hemorrhoids without mention of complica tion 02/04/2006 05/28/2016 Internal hemorrhoids without mention of complica tion 09/28/2005 05/28/2016 Other forms of migraine 05/29/19 17 Esophageal reflux 05/28/2016 documented as of this encounter (statuses as of 10/07/2021) [facility] History of Past illness Narrative* Problem Noted Date Resolved Date Rupture of right proximal biceps tendon 01/22/20 18 04/21/2021 Bicipital tendinitis of right shoulder 8 04/21/2021 Overview: [facility] PSA elevation 05/27/2017 04/01/2018 Overview: Dr. Sandip Srivastava, Urology. 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/13/2013 05/28/2016 Sprain of neck 02/10/2013 05/28/2016 Fcvhnfg-qm-wvv 04/08/2011 05/28/2016 Fissure in ano 04/08/2011 05/28/2016 Digital mucous cyst 02/26/2011 05/26/2011 Esophagitis, unspecified 08/11/2006 017 Diaphragmatic hernia without mention of obstruction or gangrene 08/11/2006 05/28/2016 Acute gastritis without mention of hemorrhage 05/28/2016 Diverticulosis of colon (without mention of hemo rrhage) 02/04/2006 05/28/2016 External hemorrhoids without mention of complica tion 02/04/2006 05/28/2016 Internal hemorrhoids without mention of complica tion 09/28/2005 05/28/2016 Other forms of migraine 05/29/19 17 Esophageal reflux 05/28/2016 documented as of this encounter (statuses as of 12/12/2021) [facility] History of Past illness Narrative* Problem Noted Date Resolved Date Rupture of right proximal biceps tendon 01/22/20 18 04/21/2021 Bicipital tendinitis of right shoulder 8 04/21/2021 Overview: [facility] PSA elevation 05/27/2017 04/01/2018 Overview: Dr. Sandip Srivastava, Urology. 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/13/2013 05/28/2016 Sprain of neck 02/10/2013 05/28/2016 Ubcvxnw-fa-jiq 04/08/2011 05/28/2016 Fissure in ano 04/08/2011 05/28/2016 Digital mucous cyst 02/26/2011 05/26/2011 Esophagitis, unspecified 08/11/2006 017 Diaphragmatic hernia without mention of obstruction or gangrene 08/11/2006 05/28/2016 Acute gastritis without mention of hemorrhage 05/28/2016 Diverticulosis of colon (without mention of hemo rrhage) 02/04/2006 05/28/2016 External hemorrhoids without mention of complica tion 02/04/2006 05/28/2016 Internal hemorrhoids without mention of complica tion 09/28/2005 05/28/2016 Other forms of migraine 05/29/19 17 Esophageal reflux 05/28/2016 documented as of this encounter (statuses as of 12/24/2021) [facility] History of Past illness Narrative* Problem Noted Date Resolved Date Rupture of right proximal biceps tendon 01/22/20 18 04/21/2021 Bicipital tendinitis of right shoulder 8 04/21/2021 Overview: [facility] PSA elevation 05/27/2017 04/01/2018 Overview: Dr. Sandip Srivastava, Urology. 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/13/2013 05/28/2016 Sprain of neck 02/10/2013 05/28/2016 Zyvtmef-hu-zzx 04/08/2011 05/28/2016 Fissure in ano 04/08/2011 05/28/2016 Digital mucous cyst 02/26/2011 05/26/2011 Esophagitis, unspecified 08/11/2006 017 Diaphragmatic hernia without mention of obstruction or gangrene 08/11/2006 05/28/2016 Acute gastritis without mention of hemorrhage 05/28/2016 Diverticulosis of colon (without mention of hemo rrhage) 02/04/2006 05/28/2016 External hemorrhoids without mention of complica tion 02/04/2006 05/28/2016 Internal hemorrhoids without mention of complica tion 09/28/2005 05/28/2016 Other forms of migraine 05/29/19 17 Esophageal reflux 05/28/2016 documented as of this encounter (statuses as of 04/13/2022) [facility] History of Past illness Narrative* Problem Noted Date Resolved Date Rupture of right proximal biceps tendon 01/22/20 18 04/21/2021 Bicipital tendinitis of right shoulder 8 04/21/2021 Overview: [facility] PSA elevation 05/27/2017 04/01/2018 Overview: Dr. Sandip Srivastaav, Urology. GERD with esophagitis 02/04/2016 04/24/2022 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/13/2013 05/28/2016 Sprain of neck 02/10/2013 05/28/2016 Shkgwfz-kp-jvu 04/08/2011 05/28/2016 Fissure in ano 04/08/2011 05/28/2016 Digital mucous cyst 02/26/2011 05/26/2011 Esophagitis, unspecified 08/11/2006 017 Diaphragmatic hernia without mention of obstruction or gangrene 08/11/2006 05/28/2016 Acute gastritis without mention of hemorrhage 05/28/2016 Benign neoplasm of colon 02/04/2006 023 Diverticulosis of colon (without mention of hemo rrhage) 02/04/2006 05/28/2016 External hemorrhoids without mention of complica tion 02/04/2006 05/28/2016 Internal hemorrhoids without mention of complica tion 09/28/2005 05/28/2016 Other forms of migraine 05/29/19 17 Esophageal reflux 05/28/2016 documented as of this encounter (statuses as of 04/24/2022) [facility] note* 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 documented in this encounter [facility] note* Diagnosis Gastroesophageal reflux disease with esophagitis, unspecified whether hemorrhage- Primary documented in this encounter [facility] note* Diagnosis Need for vaccination- Primary Need for prophylactic vaccination and inoculation against unspecified single disease documented in this encounter [facility] note* Diagnosis Subacute cough- Primary Cough documented in this encounter [facility] note* Diagnosis Hypercholesterolemia- Primary Pure hypercholesterolemia Impaired fasting glucose Gastroesophageal reflux disease with esophagitis without hemorrhage documented in this encounter [facility] note* Diagnosis Medicare annual wellness visit, subsequent- Primary Routine general medical examination at a health care facility Elevated blood pressure reading Elevated blood pressure reading without diagnosis of hypertension Hypercholesterolemia Pure hypercholesterolemia documented in this encounter [facility] note* Diagnosis Chronic cough- Primary Cough Hypercholesterolemia Pure hypercholesterolemia documented in this encounter [facility] note* Diagnosis Pain of left calf- Primary Pain in limb documented in this encounter [facility] note* Diagnosis Persistent insomnia- Primary Persistent disorder of initiating or maintaining sleep Hypercholesterolemia Pure hypercholesterolemia documented in this encounter [facility] note* Diagnosis Chronic cough- Primary Cough documented in this encounter [facility] note* Diagnosis Chronic cough Cough documented in this encounter [facility] note* Diagnosis Chronic cough Cough documented in this encounter [facility] for referral (narrative)* Outpatient Procedure (Routine) - Authorized Specialty Diagnoses / Procedures Referred By Gaviota gastelum [facility] Diagnoses Chronic cough Procedures LUNG VOLUMES Yonatan Sagastume MD [address] [place] [address] [facility] [address] [place], [place] [address] [address] Referral ID Status Reason Start Date Expiration Date Visits Requested Visits Authorized [id number] Authorized Auto-Generat ed Referral 3 03/16/2024 1 1 * Outpatient Procedure (Routine) - Authorized Specialty Diagnoses / Procedures Referred By Gaviota gastelum Ref[facility] Diagnoses Chronic cough Procedures SPIROMETRY WITH DILATOR IF OBSTRUCTED BRNCDILAT RSPSE SPMTRY PRE&POST-BRNCDILAT ADMN Yonatan Sagastume MD [address] [place] [address] [facility] [address] [place] [address] Referral ID Status Reason Start Date Expiration Date Visits Requested Visits Authorized [id number] Authorized Auto-Generat ed Referral 3 03/16/2024 1 1 [facility] Summary Purpose Family History No Family History Records Found Mother Name Dates Details No pertinent family history( V49.89, Z78.9) Status:Active Father Name Dates Details No pertinent family history( V49.89, Z78.9) Status:Active Mother Name Dates Details No pertinent family history( V49.89, Z78.9) Status:Active Father Name Dates Details No pertinent family history( V49.89, Z78.9) Status:Active Advance Directives No Advanced Directives Records FoundDocuments on File Type Date Recorded 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 Advance Directive(s) 04/18/2020 6:48 AM Advance Directive(s) 03/29/2020 2:00 PM Advance Directive(s) 06/17/2018 12:17 PM Advance Directive(s) 06/17/2018 12:22 PM Advance Directive(s) 01/28/2016 5:58 AM Advance Directive(s) 01/20/2016 4:48 PM Advance Directive(s) 02/01/2009 10:32 PM Documents on File Type Date Recorded 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 CHIEF COMPLAINT: Preoperative medical risk stratification. HISTORY OF PRESENT ILLNESS: This is a very pleasant 73-year-old male and he has had trouble with his right knee for quite sometime. It has especially been worse the last 3 months. The pain is intermittent and worse with activity and it is moderate in intensity. The symptoms have failed to respond to conservative measures. The patient did see Dr. Cuellar and was deemed a good candidate for a right knee replacement. This is a preoperative medical evaluation at the request of Dr. Cuellar for the above-named procedure. Please note that the patient does do well with anesthesia. His chronic medical conditions including BPH are stable. Please see below regarding the status of this patient's active medical (more content not included)... Note Send Summary: Discharge Summ bettina Providers: Provider RoleProvider Name Rk Goncalves Victor D AttendingRk John Note Recipients: Rk John MD Velasquez, Victor D, MD - [phone] [] Discharge: Summary: Admission Date: .10-Mar-2019 09:33:00 Discharge Date: 11-Mar-2019 Attending Physician at Discharge: Rk John Admission Reason: BPH Final Discharge Diagnoses: BPH Procedures: Date: 10-Mar-2019 13:00:00 Procedure Name: 1. cystoscopy 2. transurethral resection of the prostate Condition at Discharge: Satisfactory Disposition at Discharge: .Home Vital Signs: T PRBPSpO2 [id number]% Date/Time03/11 7:531/4 7:531/4 7:531/4 7:531/4 7:53 Range(36.2C - 37C ) (62 - 93 ) (16 - 22 ) (120 - 164 )/ (66 - 84 ) (93% - 96% ) Highest temp of 37 C was recorded at 03/11 7:53 Physical Exam: NAD, awake and alert. NCAT. EOMI, sclerae anicteric. Breathing comfortably. Regular rate. Abd soft, NT, ND. No LE edema. Hospital Course: 73 yo male with hx of BPH with LUTs who presented f (more content not included)... Note Post Operative Note: PreOp D iagnosis: BPH with LUTs Post-Procedure Diagnosis: BPH with LUTs Procedure: 1. cystoscopy 2. transurethral resection of the prostate Surgeon: Dr. Rk John Resident/Fellow/Other Spoke Maker: Dr. Román Wise, Dr. Bee Cantu Estimated Blood Loss (mL): 10cc Specimen: yes. prostate chips Findings: lateral hypertrophy, very large median lobe Drains and/or Catheters: 22Fr catheter on CBI Operative Report Dictated: Dictation: not applicable - note contains Operative Report Operative Report: OPERATIVE INDICATION: This is a 73-year-old male with past medical history significant for BPH, 101g prostate, and incomplete bladder emptying who presented to us for treatment of his lower urinary tract symptoms. He presents for surgical treatment. OPERATIVE NOTE: The patient was in the preoperative area where the risks, benefits, and indications were discussed with the patient. The patient agreed to proceed with the procedure. At this time, he was taken back to the operating mai (more content not included)... Hospital Course Note Send Summary: Discharge Summ [place]odge Providers: Provider RoleProvider Name ReferringRk John PrimaryYonatan Sagastume AttendingRk John Note Recipients: Rk John MD Velasquez, Victor D, MD - [phone] [] Discharge: Summary: Admission Date: .10-Mar-2019 09:33:00 Discharge Date: 11-Mar-2019 Attending Physician at Discharge: Rk John Admission Reason: BPH Final Discharge Diagnoses: BPH Procedures: Date: 10-Mar-2019 13:00:00 Procedure Name: 1. cystoscopy 2. transurethral resection of the prostate Condition at Discharge: Satisfactory Disposition at Discharge: .Home Vital Signs: T PRBPSpO2 [id number]/[id number]% Date/Time03/11 7:531 7:531 7:531 7:531 7:53 Range(36.2C - 37C ) (62 - 93 ) (16 - 22 ) (120 - 164 )/ (66 - 84 ) (93% - 96% ) Highest temp of 37 C was recorded at 03/11 7:53 Physical Exam: NAD, awake and alert. NCAT. EOMI, sclerae anicteric. Breathing comfortably. Regular rate. Abd soft, NT, ND. No LE edema. Hospital Course: 73 yo male with hx of BPH with LUTs who presented f (more content not included)... Note Post Operative Note: PreOp D iagnosis: BPH with LUTs Post-Procedure Diagnosis: BPH with LUTs Procedure: 1. cystoscopy 2. transurethral resection of the prostate Surgeon: Dr. Rk John Resident/Fellow/Other Spoke Maker: Dr. Román Wise, Dr. Bee Cantu Estimated Blood Loss (mL): 10cc Specimen: yes. prostate chips Findings: lateral hypertrophy, very large median lobe Drains and/or Catheters: 22Fr catheter on CBI Operative Report Dictated: Dictation: not applicable - note contains Operative Report Operative Report: OPERATIVE INDICATION: This is a 73-year-old male with past medical history significant for BPH, 101g prostate, and incomplete bladder emptying who presented to us for treatment of his lower urinary tract symptoms. He presents for surgical treatment. OPERATIVE NOTE: The patient was in the preoperative area where the risks, benefits, and indications were discussed with the patient. The patient agreed to proceed with the procedure. At this time, he was taken back to the operating mai (more content not included)... Procedure Findings Note Post Operative Note: PreOp D iagnosis: BPH with LUTs Post-Procedure Diagnosis: BPH with LUTs Procedure: 1. cystoscopy 2. transurethral resection of the prostate Surgeon: Dr. Rk John Resident/Fellow/Other Spoke Maker: Dr. Román Wise, Dr. Bee Cantu Estimated Blood Loss (mL): 10cc Specimen: yes. prostate chips Findings: lateral hypertrophy, very large median lobe Drains and/or Catheters: 22Fr catheter on CBI Operative Report Dictated: Dictation: not applicable - note contains Operative Report Operative Report: OPERATIVE INDICATION: This is a 73-year-old male with past medical history significant for BPH, 101g prostate, and incomplete bladder emptying who presented to us for treatment of his lower urinary tract symptoms. He presents for surgical treatment. OPERATIVE NOTE: The patient was in the preoperative area where the risks, benefits, and indications were discussed with the patient. The patient agreed to proceed with the procedure. At this time, he was taken back to the operating mai (more content not included)... Additional Source Comments (unrecognized sect ion and content) No Status Records FoundNo Status Records FoundNo Status Records FoundNo Status Records FoundNo Status Records FoundNo Status Records Found INFORMATION SOURCE (unrecogn ized section and content) DATE CREATED AUTHOR AUTHOR'S ORGANIZ ATION 01/14/2019 [facility] ([place]) DATE CREATED AUTHOR AUTHOR'S ORGANIZ ATION 03/29/2019 [employer] DATE CREATED AUTHOR AUTHOR'S ORGANIZ ATION 04/05/2019 [facility] DATE CREATED AUTHOR AUTHOR'S ORGANIZ ATION 04/20/2020 [facility] DATE CREATED AUTHOR AUTHOR'S ORGANIZ ATION 02/17/2023 [facility] Source Comments (unrecognize d section and content) In the event this informatio n is protected by the Federal Confidentiality of Alcohol and Drug Abuse Patient Records regulations: The Federal rules restrict any use of the information to criminally investigate or prosecute any alcohol or drug abuse patient.[place] [facility] [facility] the event this information is protected by the Federal Confidentiality of Alcohol and Drug Abuse Patient Records regulations: The Federal rules restrict any use of the information to criminally investigate or prosecute any alcohol or drug abuse patient.[place] [facility] the event this information is protected by the Federal Confidentiality of Alcohol and Drug Abuse Patient Records regulations: The Federal rules restrict any use of the information to criminally investigate or prosecute any alcohol or drug abuse patient.[facility]In the event this information is protected by the Federal Confidentiality of Alcohol and Drug Abuse Patient Records regulations: The Federal rules restrict any use of the information to criminally investigate or prosecute any alcohol or drug abuse patient.[facility] HospitalIn the event this information is protected by the Federal Confidentiality of Alcohol and Drug Abuse Patient Records regulations: The Federal rules restrict any use of the information to criminally investigate or prosecute any alcohol or drug abuse patient.[facility] HospitalIn the event this information is protected by the Federal Confidentiality of Alcohol and Drug Abuse Patient Records regulations: The Federal rules restrict any use of the information to criminally investigate or prosecute any alcohol or drug abuse patient.[facility] [place] [facility] HospitalIn the event this information is protected by the Federal Confidentiality of Alcohol and Drug Abuse Patient Records regulations: The Federal rules restrict any use of the information to criminally investigate or prosecute any alcohol or drug abuse patient.[facility] HospitalIn the event this information is protected by the Federal Confidentiality of Alcohol and Drug Abuse Patient Records regulations: The Federal rules restrict any use of the information to criminally investigate or prosecute any alcohol or drug abuse patient.[facility] HospitalIn the event this information is protected by the Federal Confidentiality of Alcohol and Drug Abuse Patient Records regulations: The Federal rules restrict any use of the information to criminally investigate or prosecute any alcohol or drug abuse patient.[facility] HospitalIn the event this information is protected by the Federal Confidentiality of Alcohol and Drug Abuse Patient Records regulations: The Federal rules restrict any use of the information to criminally investigate or prosecute any alcohol or drug abuse patient.[facility] HospitalIn the event this information is protected by the Federal Confidentiality of Alcohol and Drug Abuse Patient Records regulations: The Federal rules restrict any use of the information to criminally investigate or prosecute any alcohol or drug abuse patient.[facility] HospitalIn the event this information is protected by the Federal Confidentiality of Alcohol and Drug Abuse Patient Records regulations: The Federal rules restrict any use of the information to criminally investigate or prosecute any alcohol or drug abuse patient.[facility] HospitalIn the event this information is protected by the Federal Confidentiality of Alcohol and Drug Abuse Patient Records regulations: The Federal rules restrict any use of the information to criminally investigate or prosecute any alcohol or drug abuse patient.[facility] HospitalIn the event this information is protected by the Federal Confidentiality of Alcohol and Drug Abuse Patient Records regulations: The Federal rules restrict any use of the information to criminally investigate or prosecute any alcohol or drug abuse patient.[facility] HospitalIn the event this information is protected by the Federal Confidentiality of Alcohol and Drug Abuse Patient Records regulations: The Federal rules restrict any use of the information to criminally investigate or prosecute any alcohol or drug abuse patient.[facility] Reason for Visit (unrecogniz ed section and content) Reason Comments Established Patient Reason Comments Imm/Inj Reason Comments Cough Mucous several mon ths Reason Comments Requesting lab orders Reason Comments Medicare Wellness Exam Reason Comments Chest discomfort Reason Comments Results Reason Comments Left leg pain Reason Comments F/U 6 months Reason Comments Cough Reason Comments Spirometry Specialty Diagnoses / Procedures Referred By Contac t Referred To [facility] Diagnoses Chronic cough Procedures SPIROMETRY WITH DILATOR IF OBSTRUCTED BRNCDILAT RSPSE SPMTRY PRE&POST-BRNCDILAT ADMN Yonatan Sagastume MD [address] [place] [id number] [address] [place] [address] [place] [address] Referral ID Status Reason Start Date Expiration Date V isits Requested Visits Authorized [id number] Closed Auto-Generate d Referral 02/15/2023 03/16/2024 1 1 Care Teams (unrecognized sec tion and content) Sonography Technician Relationship Specialty Start Date End Date Yonatan Sagastume MD [address] [place] [address] [id number] PCP - General Internal Medicine 12/26/15 Sonography Technician Relationship Specialty Start Date End Date Yonatan Sagastume MD [address] [place] [address] [id number] PCP - General Internal Medicine 12/26/15 Sonography Technician Relationship Specialty Start Date End Date Yonatna Sagastume MD [address] [place] [address] [id number] PCP - General Internal Medicine 12/26/15 Sonography Technician Relationship Specialty Start Date End Date Yonatan Sagastume MD [address] [place] [address] [id number] PCP - General Internal Medicine 12/26/15 Sonography Technician Relationship Specialty Start Date End Date Yonatan Sagastume MD [address] [place] [address] PCP - General Internal Medicine 12/26/15 Sonography Technician Relationship Specialty Start Date End Date Yonatan Sagastume MD [address] [place] [address] PCP - General Internal Medicine 12/26/15 Sonography Technician Relationship Specialty Start Date End Date Yonatan Sagastume MD [address] [place] [address] PCP - General Internal Medicine 12/26/15 Sonography Technician Relationship Specialty Start Date End Date Yonatan Sagastume MD [address] [place] [address] PCP - General Internal Medicine 12/26/15 Sonography Technician Relationship Specialty Start Date End Date Yonatan Sagastume MD [address] [place] [address] PCP - General Internal Medicine 12/26/15 Sonography Technician Relationship Specialty Start Date End Date Yonatan Sagastume MD [address] [place] [address] PCP - General Internal Medicine 12/26/15 Sonography Technician Relationship Specialty Start Date End Date Yonatan Sagastume MD [address] [place] [address] PCP - General Internal Medicine 12/26/15 Sonography Technician Relationship Specialty Start Date End Date Yonatan Sagastume MD [address] [place] [address] PCP - General Internal Medicine 12/26/15 Sonography Technician Relationship Specialty Start Date End Date Yonatan Sagastume MD [address] [place] [address] PCP - General Internal Medicine 12/26/15 FOR RECORDS PERTAINING TO PATIENTS WHO ARE OR HAVE BEEN ENROLLED IN A CHEMICAL DEPENDENCY/SUBSTANCEABUSE PROGRAM, SOME INFORMATION MAY BE OMITTED. This clinical summary was aggregated from multiple sources. Caution should be exercised in using it in the provision of clinical care. This summary normalizes information from multiple sources, and as a consequence, information in this document may materially change the coding, format and clinical context of patient data. In addition, data may be omitted in some cases. CLINICAL DECISIONS SHOULD BE BASED ON THE PRIMARY CLINICAL RECORDS. [facility]. provides no warranty or guarantee of the accuracy or completeness of information in this document.
[2023-03-06 08:15] LABS: Absolute Lymphocyte Count 0.29 X10^3/uL (0.83-4.51); Absolute Neutrophil Count 3.1 X10^3/uL (2.0-7.7); Basophil# 0.02 X10^3/uL; Basophil% 0.6 % (0-1); Hematocrit 41.2 % (40-54); Hemoglobin 14.4 g/dL (13.0-16.5); Lymphocyte # 0.29 X10^3/ul (0.83-4.51); Lymphocyte % 8.1 % (19-41); Mean Corpuscular Hgb 33.2 pg (27.0-32.0); Mean Corpuscular Volume 94.9 fL (80-94); Mean Platelet Vol. 10.9 fl (6.2-12.0); Monocyte# 0.19 X10^3/uL; Monocyte% 5.3 % (0-10); NRBC Flagged by Analyzer 0 % (0-5); Neutrophil # 3.06 X10^3/uL (2.7-7.7); Neutrophil % 85.7 % (47-70); POSITIVE DIFFERENTIAL YES; POSITIVE MORPHOLOGY YES; Platelet Count 141 K/mm3 (150-450); RBC Distribution Width CV 13.9 % (11.6-14.6); RBC Distribution Width SD 48.3 fl (35.1-43.9); Red Blood Count 4.34 M/mm3 (4.6-6.2); White Blood Count 3.6 K/mm3 (4.4-11.0)
[2023-03-06 08:21] LABS: Anion Gap 6 (5-15); BUN 35 mg/dL (7-18); Calcium,Total 9.1 mg/dL (8.5-10.1); Chloride 103 mmol/L (98-107); Creatinine, Serum 1.46 mg/dL (0.70-1.30); EST Glomerular Filtration Rate 49 mL/min (>60); Est Glom Filt Rate - Afr Amer 60 mL/min (>60); Estimated Creatinine Clearance 45.03 ml/min; Glucose 123 mg/dL (74-106); Sodium Level 133 mmol/L (136-145); Troponin-I HS (w/2H Reflex) 9 pg/mL (3.0-78.0)
[2023-03-06] MEDS: Azithromycin 500 MG in Dextrose 5%-Water (250mL Bag) 250 ML 250 MG IV (08:29)
[2023-03-06] MEDS: 0.9% Normal Saline (1000mL) 1,000 ML 999 ML IV (08:30)
[2023-03-06 08:36] LABS: Differential Indicated SCAN CRITERIA MET
[2023-03-06 08:37] LABS: AST(SGOT) 11 U/L (15-37); Alanine Aminotransfer ALT/SGPT 14 U/L (16-61); Albumin, Serum 3.1 g/dL (3.2-5.0); Alkaline Phosphatase 66 U/L (45-117); Globulin 3.9 g/dL (2.2-4.2)
[2023-03-06 08:52] LABS: Lactic Acid 2.8 mmol/L (0.4-1.9)
[2023-03-06 08:54] LABS: Procalcitonin 12.77 ng/mL (0.00-0.09)
[2023-03-06 09:00] LABS: International Normalized Ratio 1.5; Prothrombin Time (Protime)PT. 18.1 SECONDS (11.7-14.9)
[2023-03-06 09:01] LABS: Partial Thromboplast Time 30.2 Seconds (24.1-36.2)
--- NOTE | 2023-03-06 09:01 | HP.PCM.HOS_ITS ---
HPI - General General Date of Admission: 03/06/23 Date of Service: 03/06/23 Chief Complaint: Cough for past 3 months along with sputum production HPI Narrative MADYSON DANIELS, is a 77 M with very healthy lifestyle came to ED for acute worsening of cough with sputum production and shortness of breath. Patient states he has a productive cough for 3 months which got worse in the last month. He brings up thick yellow mucus. Patient does biking almost every day and exercise regularly at least 4 times a week but did not feel shortness of breath until yesterday. For the last 2 days he is feeling worse cough, dyspnea on mild exertion with no energy. He also felt subjective fever myalgia and went to urgent care [facility] where he was tested negative for COVID flu and RSV. Patient came to ED with shortness of breath and cough and found to hypoxic 88% on room air. He also complained of chest discomfort mainly on the right side which is pleuritic in nature worse with coughing and inspiration. Denies any chronic cardiopulmonary disease including COPD, asthma, pulmonary hypertension, CAD CHF or arrhythmia. In ED, patient was found tachycardic and EKG showed A-fib with RVR. Patient denies history of A-fib. He was short of breath tachypneic. Initially blood pressure was 110/60 but later dropped to 89/67 but rested well with last blood pressure 112/69. Chest x-ray imaging reviewed and shows predominant right upper/middle lobe infiltrate. Patient history with IV fluid normal saline bolus, IV antibiotics ceftriaxone and Zithromax and further admitted. [facility] Medical History BPH (benign prostatic hyperplasia) Skin cancer Medical History no medical history Home Medications cholecalciferol (vitamin D3) 25 mcg (1,000 unit) capsule 25 mcg PO DAILY 09/02/21 [History Last Taken 12/01/22] coenzyme Q10 10 mg capsule (Co Q-10) 10 mg PO ONCE 09/02/21 [History Last Taken 12/01/22] glucosamine-chondroitin 250 mg-200 mg tablet (Osteo Bi-Flex) 2 tab PO QPC 09/02/21 [History Last Taken Unknown] lysine 500 mg tablet (L-Lysine) 500 mg PO DAILY 12/01/22 [History Last Taken 12/01/22] Allergy/AdvReac Type Severity Reaction Status Date / Time No Known Allergies Allergy Verified 03/06/23 07:26 Family History Brother Esophageal cancer Surgical History Total knee replacement status Social History Smoking Status: Never smoker ROS ROS Narrative Constitutional: Reports fatigue and weakness. Chills with fever. HEENT: Reports systems reviewed and no addt'l complaints, except as documented Respiratory/Chest: As described in HPI CVS: Predominant right sided in pleuritic chest pain as described in HPI Gastrointestinal: Mild nausea and one-time vomiting yesterday. Denies coffee ground emesis, hematemesis or melena Genitourinary: Denies burning urination or new urinary tract symptoms Musculoskeletal: Diffuse myalgia. Denies acute joint pain or limited range of motion. No acute injury Neurologic: Denies seizure-like symptoms. skin: No ulcer. No rash Endocrinology: Reports systems reviewed and no addt'l complaints, except as documented Hematologic/Lymphatic: Reports systems reviewed and no addt'l complaints, except as documented Rest 14 ROS are negative except as mentioned in HPI Vital Signs Vital Signs Vital Signs: 03/06/23 07:27 03/06/23 07:32 03/06/23 08:00 Temperature 97.4 F L 97.8 F Temperature Source Temporal Temporal Pulse Rate 121 H 115 H Respiratory Rate 22 H 18 Respiratory Effort Respiratory Depth Respiratory Pattern Blood Pressure 110/60 99/73 Blood Pressure Mean 76 81 Pulse Ox 88 Oxygen Delivery Method Room Air Nasal Cannula Oxygen Flow Rate (L/min) 2 03/06/23 08:16 03/06/23 08:16 03/06/23 08:47 Temperature Temperature Source Pulse Rate 100 102 H Respiratory Rate 26 H Respiratory Effort Short of Breath Respiratory Depth Shallow Respiratory Pattern Tachypnea Blood Pressure 89/67 L 112/69 Blood Pressure Mean 74 83 Pulse Ox 93 Oxygen Delivery Method Room Air Oxygen Flow Rate (L/min) Weight Weight: 180 lb Body Mass Index (BMI) 24.4 Physical Exam Narrative General: Alert, Oriented x3, Cooperative HEENT: Atraumatic, PERRLA, EOMI, Normocephalic Oral: Oral mucosa dry. No Gingival or Mucosal Lesions/ Ulcerations Neck: Supple, No JVD, Negative Carotid Bruits Lungs: Air entry diminished in bilateral lung bases. Bilateral coarse crepitation more on the right side. No wheezing. Mild hypoxia and tachypnea. Cardiovascular: A-fib RVR. Normal S1, Normal S2, No murmurs Abdomen: Bowel Sounds Present, Soft, Non Tender, Non-Distended : No renal angle tenderness. No suprapubic tenderness. Extremities: No edema, Capillary Refill Less than 3 Seconds Skin: No rashes, No breakdown Musculoskeletal: No Tenderness to Palpation of Joints or Extremities Neurological: Cranial nerves II-XII grossly intact, DTR 2+/4. No acute focal neurological deficit. Psych/Mental Status: Flat affect. Results Lab / Micro Data 03/06/23 07:37 03/06/23 07:37 Labs: Laboratory Results - last 24 hr 03/06/23 07:37: WBC 3.6 L, RBC 4.34 L, Hgb 14.4, Hct 41.2, MCV 94.9 H, MCH 33.2 H, MCHC 35.0, RDW Std Deviation 48.3 H, RDW Coeff of Alexy 13.9, Plt Count 141 L, MPV 10.9, Immature Gran % (Auto) 0.300, Neut % (Auto) 85.7 H, Lymph % (Auto) 8.1 L, Troup % (Auto) 5.3, Eos % (Auto) 0.0, Baso % (Auto) 0.6, Absolute Neuts (auto) 3.1, Absolute Lymphs (auto) 0.29 L, Nucleated RBC % 0, Sodium 133 L, Potassium 4.0, Chloride 103, Carbon Dioxide 24.0, Anion Gap 6, BUN 35 H, Creatinine 1.46 H , Estim Creat Clear Calc 45.03, Est GFR (MDRD) Af Amer 60, Est GFR (MDRD) Non-Af 49 L, BUN/Creatinine Ratio 24.0 H, Glucose 123 H, Lactic Acid 2.8 H*, Calcium 9.1, Total Bilirubin 2.70 H, Direct Bilirubin 0.50 H, AST 11 L, ALT 14 L, Alkaline Phosphatase 66, Troponin I High Sens 9, Total Protein 7.0, Albumin 3.1 L, Globulin 3.9 03/06/23 08:12: Procalcitonin 12.77 H Micro: Microbiology 03/06/23 07:37 Mucosa - Nose SARS-CoV-2, Influenza & RSV (PCR) - Final Assessment & Plan Assessment/Plan (1) Atrial fibrillation, new onset: (2) Community acquired pneumonia: QUALIFIERS: Laterality: right Lung location: middle lobe of lung Qualified Code(s): J18.9 - Pneumonia, unspecified organism PLAN: Plan This is 77-year-old gentleman being admitted for right-sided pneumonia and new onset A-fib RVR 1. Right upper/middle lobe community-acquired pneumonia with tachypnea and mild hypoxia: Patient is being admitted in PCU. Patient is treated with IV fluid. All the patient mild one-time transient hypotension, BP 89/60. Patient soon recovered and does not meet the criteria for sepsis. Pneumonia workup including blood cultures x 2 ordered. Procalcitonin is high at 12.77. Patient has mild leukopenia, mild thrombocytopenia neutrophilia, lymphopenia. Lactic acid 2.8. Patient is started on IV ceftriaxone and azithromycin, Mucinex DM, incentive spirometry and Pep. 2. New onset A-fib with RVR most likely precipitated by pneumonia: Patient denies prior history of A-fib and I think it might be transient, preceded by respiratory infection. Will resuscitate with IV fluid as RVR might be due to hypovolemia or infection. Eliquis 5 mg twice daily. If heart rate is still high despite adequate IV fluid resuscitation, will start on metoprolol 12.5 mg twice daily 3. BPH:Patient not on any medication and denies any acute lower urinary tract symptoms including dysuria. On vitamin and nutritional supplement at home. Continue vitamin D3. DVT prophylaxis: Eliquis 5 mg twice daily admission above. Living will/advanced directive/end of life care: Patient does have living will or advanced directive. His near the bedside is power of employee benefits attorney for health. After discussion of benefits/risks procedures involved with full code, DNR CC arrest and DNR CC, the patient and his opted for full code for now. Patient does want artificial life support including intubation, tube feed, ventilator and/chest compression, central venous catheter, vasopressor and DC shock if needed Total time spent in [id number] encounter in discussion of advanced directive 17 minutes. Microbiology Past 72 Hours 03/06/23 07:37 Mucosa - Nose SARS-CoV-2, Influenza & RSV (PCR) - Final Laboratory Results 03/06/23 07:37: WBC 3.6 L, RBC 4.34 L, Hgb 14.4, Hct 41.2, MCV 94.9 H, MCH 33.2 H, MCHC 35.0, RDW Std Deviation 48.3 H, RDW Coeff of Alexy 13.9, Plt Count 141 L, MPV 10.9, Immature Gran % (Auto) 0.300, Neut % (Auto) 85.7 H, Lymph % (Auto) 8.1 L, Troup % (Auto) 5.3, Eos % (Auto) 0.0, Baso % (Auto) 0.6, Absolute Neuts (auto) 3.1, Absolute Lymphs (auto) 0.29 L, Nucleated RBC % 0, Differential Comment SCANNED, Diff Path Review July, PT 18.1 H, INR 1.5, APTT 30.2, Sodium 133 L, Potassium 4.0, Chloride 103, Carbon Dioxide 24.0, Anion Gap 6, BUN 35 H, Creatinine 1.46 H, Estim Creat Clear Calc 45.03, Est GFR (MDRD) Af Amer 60, Est GFR (MDRD) Non-Af 49 L, BUN/Creatinine Ratio 24.0 H, Glucose 123 H, Lactic Acid 2.8 H*, Calcium 9.1, Phosphorus 3.6, Magnesium 1.7, Total Bilirubin 2.70 H, Direct Bilirubin 0.50 H, AST 11 L, ALT 14 L, Alkaline Phosphatase 66, Troponin I High Sens 9, Total Protein 7.0, Albumin 3.1 L, Globulin 3.9 03/06/23 08:12: Procalcitonin 12.77 H 03/06/23 10:13: Troponin I High Sens 12 03/06/23 12:38: Lactic Acid Pending Charges/Coding Visit Charges Inpatient E&M: 04759 Init Hosp L3 Procedures Hospitalists Procedures: 71322 Advncd Care Plan 30 Min
[2023-03-06 09:29] LABS: Differential Comment SCANNED
[2023-03-06 09:38] LABS: Magnesium 1.7 mg/dL (1.6-2.6); Phosphorus 3.6 mg/dL (2.5-4.9)
[2023-03-06 09:58] LABS: Reflex Troponin-HS? (from REC) Y
[2023-03-06] MEDS: Ceftriaxone 2 GM in 0.9% Normal Saline (50mL MB+) 50 ML IV (10:35)
[2023-03-06 10:46] LABS: Troponin-I HS 12 pg/mL (3.0-78.0)
--- OUTSIDE RECORDS SUMMARY | 2023-03-06 11:09 | XMS RPT_ITS | CCD ---
Author Name Unknown Address [address] [place] [address] Organization [facility] Care Team Providers Care Advanced Practice Psychiatric Nurse Name Role Phone Yonatan Sagastume Unavailable Unavailable Alvaro, Rk B Unavailable Unavailable Unknown, Referring Provider Unavailable Unav ailable Alvaro, Rk Unavailable Unavailable Tanika VANEGAS, Yonatan Pompa Primary Care Provider [phone] Tanika VANEGAS, Yonatan Pompa Primary Care Provider [phone] Tanika VANEGAS, Yonatan Pompa Primary Care Provider [phone] YONATAN SAGASTUME Attending Unavailable TANIKA, YONATAN Pompa [...] Drug Class(es) Dates Sig (Normalized) Sig (Original) [id number] 200 actuat albuterol 0.09 mg/actuat metered dose [...] height 178.3 cm Pulm Wstr Work Phone: [facility] 02-17-2023 07:56-0500 Body weight 83.46 kg Pulm Wstr Work Phone: [facility] 02-17-2023 07:56-0500 Heart rate 63 /min Pulm Wstr Work Phone: [facility] 02-17-2023 07:56-0500 Respiratory rate 14 /min Pulm Wstr Work Phone: [facility] 02-17-2023 07:56-0500 SaO2% (BldA) [Mass fraction] 95 % Pulm Wstr Work Phone: [facility] 02-15-2023 14:19-0500 Body temperature 98.29 [degF] Yonatan Sagastume MD Work Phone: [facility] 02-15-2023 14:19-0500 Body weight 83.46 kg Yonatan Sagastume MD Work Phone: [facility] 02-15-2023 14:19-0500 Diastolic blood pressure 74 mm[Hg] Yonatan Sagastume MD Work Phone: [facility] 02-15-2023 14:19-0500 Heart rate 68 /min Yonatan Sagastume MD Work Phone: [facility] 02-15-2023 14:19-0500 SaO2% (BldA) [Mass fraction] 96 % Yonatan Sagastume MD Work Phone: [facility] 02-15-2023 14:19-0500 Systolic blood pressure 130 mm[Hg] Yonatan Sagastume MD Work Phone: [facility] 10-29-2022 15:56-0400 Body weight 80.69 kg Yonatan Sagastume MD Work Phone: [facility] 10-29-2022 15:56-0400 Diastolic blood pressure 60 mm[Hg] Yonatan Sagastume MD Work Phone: [facility] 10-29-2022 15:56-0400 Heart rate 64 /min Yonatan Sagastume MD Work Phone: [facility] 10-29-2022 15:56-0400 Respiratory rate 12 /min Yonatan Sagastume MD Work Phone: [facility] 10-29-2022 15:56-0400 Systolic blood pressure 114 mm[Hg] Yonatan Sagastume MD Work Phone: [facility] 09-30-2022 16:23-0400 Body weight 80.2 kg Yonatan Sagastume MD Work Phone: [facility] 09-30-2022 16:23-0400 Diastolic blood pressure 70 mm[Hg] Yonatan Sagastume MD Work Phone: [facility] 09-30-2022 16:23-0400 Heart rate 64 /min Yonatan Sagastume MD Work Phone: [facility] 09-30-2022 16:23-0400 Respiratory rate 12 /min Yonatan Sagastume MD Work Phone: [facility] 09-30-2022 16:23-0400 Systolic blood pressure 114 mm[Hg] Yonatan Sagastume MD Work Phone: [facility] 06-01-2022 16:57-0400 Body temperature 98.1 [degF] Yonatan Sagastume MD Work Phone: [facility] 06-01-2022 16:57-0400 Body weight 85.73 kg Yonatan Sagastume MD Work Phone: [facility] 06-01-2022 16:57-0400 Diastolic blood pressure 70 mm[Hg] Yonatan Sagastume MD Work Phone: [facility] 06-01-2022 16:57-0400 Heart rate 60 /min Yonatan Sagastume MD Work Phone: [facility] 06-01-2022 16:57-0400 Respiratory rate 12 /min Yonatan Sagastume MD Work Phone: [facility] 06-01-2022 16:57-0400 SaO2% (BldA) [Mass fraction] 95 % Yonatan Sagastume MD Work Phone: [facility] 06-01-2022 16:57-0400 Systolic blood pressure 118 mm[Hg] Yonatan Sagastume MD Work Phone: [facility] 04-24-2022 14:19-0500 Body height 176.5 cm Yonatan Sagastume MD Work Phone: [facility] 04-24-2022 14:19-0500 Body weight 84.37 kg Yonatan Sagastume MD Work Phone: [facility] 04-24-2022 14:19-0500 Diastolic blood pressure 78 mm[Hg] Yonatan Sagastume MD Work Phone: [facility] 04-24-2022 14:19-0500 Heart rate 64 /min Yonatan Sagastume MD Work Phone: [facility] 04-24-2022 14:19-0500 Respiratory rate 16 /min Yonatan Sagastume MD Work Phone: [facility] 04-24-2022 14:19-0500 SaO2% (BldA) [Mass fraction] 98 % Yonatan Sagastume MD Work Phone: [facility] 04-24-2022 14:19-0500 Systolic blood pressure 132 mm[Hg] Yonatan Sagastume MD Work Phone: [facility] 12-24-2021 08:01-0400 Body temperature 97.3 [degF] Shraddha Older HOMICIDE SQUAD CAPTAIN.BUSINESS MANAGEMENT CONSULTANT Work Phone: [facility] 12-24-2021 08:01-0400 Body weight 84.37 kg Shraddha Older HOMICIDE SQUAD CAPTAIN.BUSINESS MANAGEMENT CONSULTANT Work Phone: [facility] 12-24-2021 08:01-0400 Diastolic blood pressure 84 mm[Hg] Shraddha Older HOMICIDE SQUAD CAPTAIN.BUSINESS MANAGEMENT CONSULTANT Work Phone: [facility] 12-24-2021 08:01-0400 Heart rate 60 /min Shraddha Older HOMICIDE SQUAD CAPTAIN.BUSINESS MANAGEMENT CONSULTANT Work Phone: [facility] 12-24-2021 08:01-0400 Respiratory rate 14 /min Shraddha Older HOMICIDE SQUAD CAPTAIN.BUSINESS MANAGEMENT CONSULTANT Work Phone: [facility] 12-24-2021 08:01-0400 Systolic blood pressure 176 mm[Hg] Shraddha Older HOMICIDE SQUAD CAPTAIN.BUSINESS MANAGEMENT CONSULTANT Work Phone: [facility] 06-24-2021 13:54-0400 Body height 182.9 cm Darrion Blackwell MD Work Phone: [facility] 06-24-2021 13:54-0400 Body temperature 98.1 [degF] Darrion Blackwell MD Work Phone: [facility] 06-24-2021 13:54-0400 Body weight 86.64 kg Darrion Blackwell MD Work Phone: [facility] 06-24-2021 13:54-0400 Diastolic blood pressure 87 mm[Hg] Darrion Blackwell MD Work Phone: [facility] 06-24-2021 13:54-0400 Heart rate 80 /min Darrion Blackwell MD Work Phone: [facility] 06-24-2021 13:54-0400 SaO2% (BldA) [Mass fraction] 99 % Darrion Blackwell MD Work Phone: [facility] 06-24-2021 13:54-0400 Systolic blood pressure 162 mm[Hg] Darrion Blackwell MD Work Phone: [facility] 03-29-2019 13:09-0500 BMI (Body Mass Index) 25.5 kg/m2 Rk Alvaro MG-Urology -[facility] Work Phone: 03-29-2019 13:09-0500 Body weight 85.28 kg Rk Alvaro LK-Nxwipzr-Miyqr [place] Work Phone: 03-29-2019 13:09-0500 BP Diastolic 86 mm[Hg] Rk Alvaro TX-Xcmcktj-Czzsd [place] Work Phone: 03-29-2019 13:09-0500 BP Systolic 148 mm[Hg] Rk Alvaro YL-Gwyyakx-Whbhp [place] Work Phone: 03-29-2019 13:09-0500 BSA (Body Surface Area) 2.08 m2 Rk Alvaro FB-Cdwksrp-Jbyvb [place] Work Phone: 03-29-2019 13:09-0500 Height 182.88 cm Rk Alvaro VA-Tqwadun-Gskdk [place] Work Phone: 03-29-2019 13:09-0500 Pulse (Heart Rate) 55 /min Rk Alvaro WT-Tcwktji-Em jacque [place] Work Phone: Encounters Encounter Date Encounter Type Care Provider Facility Start: 02-17-2023 End: 02-17-2023 ambulatory YONATAN SAGASTUME Facility:[facility] Start: 02-17-2023 End: 02-17-2023 ambulatory Pulm Lab [facility] Work Phone: PULM LAB [facility] Procedures Date Procedure Procedure Detail Performing [...] Detail Author Start: 04-08-2028 Urine microalbumin profile [facility] Start: 10-23-2025 DIABETES SCREEN DIABETES SCREEN [facility] Start: 10-23-2025 Diabetes Screening Diabetes Screenin g [facility] Start: 04-16-2025 DIABETES SCREEN DIABETES SCREEN [facility] Start: 04-16-2024 DIABETES SCREEN DIABETES SCREEN [facility] Start: 10-01-2023 COVID-19 VACCINE (6 - Moderna series) COVID-19 VACCINE (6 - Moderna series) [facility] Immunizations Immunization Date Immunization Notes Care Provider Fa cility 12-11-2022 COVID-19 vaccine, ag e 12+ yr, season (PFIZER-BIONTECH) Immunization [facility] Work Phone: [facility] Work Phone: 12-02-2022 influenza (HD-IIV4) vaccine, age 65+ yr, high dose, quadrivalent, PF (FLUZONE HIGH-DOSE) Immunization [facility] Work Phone: [facility] Work Phone: 12-12-2021 influenza, high-dose , quadrivalent vaccine (FLUZONE HIGH DOSE QUADRIVALENT) De Nurse Work Phone: [facility] Work Phone: 10-07-2021 COVID-19 vaccine, ag e 12+ yr (PFIZER-BIONTECH - ARIZMENDI TOP) De Nurse Work Phone: [facility] Work Phone: 02-03-2021 COVID-19 vaccine, fu ll dose (MODERNA) De Nurse Work Phone: [facility] Work Phone: 11-15-2020 influenza, high-dose , quadrivalent vaccine (FLUZONE HIGH DOSE QUADRIVALENT) Mac Rodríguez MD Work Phone: [facility] 05-15-2020 COVID-19 vaccine, fu ll dose (MODERNA) Mac Rodríguez MD Work Phone: [facility] Work Phone: 04-16-2020 COVID-19 vaccine, fu ll dose (MODERNA) Mac Rodríguez MD Work Phone: [facility] Work Phone: 12-27-2019 influenza, high-dose , quadrivalent vaccine (FLUZONE HIGH DOSE QUADRIVALENT) Mac Rodríguez MD Work Phone: [facility] 12-13-2018 influenza, high dose seasonal, preservative-free Mac Rodríguez MD Work Phone: [facility] 08-15-2018 zoster vaccine recombinant Mac Rodríguez MD Work Phone: [facility] Work Phone: 06-06-2018 zoster vaccine recombinant Mac Rodríguez MD Work Phone: [facility] Work Phone: 04-08-2018 tetanus and diphther ia toxoids, adsorbed, preservative free, for adult use (5 Lf of tetanus toxoid and 2 Lf of diphtheria toxoid) Mac Rodríguez MD Work Phone: [facility] Work Phone: 12-18-2017 influenza, high dose seasonal, preservative-free Mac Rodríguez MD Work Phone: [facility] 12-30-2016 influenza, high dose seasonal, preservative-free Mac Rodríguez MD Work Phone: [facility] Work Phone: 12-28-2015 influenza, high dose seasonal, preservative-free Mac Rodríguez MD Work Phone: [facility] 05-30-2015 pneumococcal conjuga te vaccine, 13 valent Mac Rodríguez MD Work Phone: [facility] Work Phone: 12-27-2014 influenza, high dose seasonal, preservative-free Mac Rodríguez MD Work Phone: [facility] 01-03-2014 influenza, seasonal, injectable Mac Rodríguez MD Work Phone: [facility] 12-31-2012 influenza virus vaccine, unspecified formulation Mac Rodríguez MD Work Phone: [facility] Work Phone: 12-05-2011 influenza virus vaccine, unspecified formulation Mac Rodríguez MD Work Phone: [facility] Work Phone: 12-13-2010 influenza virus vaccine, unspecified formulation Mac Rodríguez MD Work Phone: [facility] 12-17-2009 influenza virus vaccine, unspecified formulation Mac Rodríguez MD Work Phone: [facility] Work Phone: 12-01-2008 influenza virus vaccine, unspecified formulation Mac Rodríguez MD Work Phone: [facility] Work Phone: 04-30-2008 pneumococcal polysaccharide vaccine, 23 valent Mac Rodríguez MD Work Phone: [facility] 01-09-2008 influenza virus vaccine, whole virus Mac Rodríguez MD Work Phone: [facility] Work Phone: 01-09-2008 tetanus toxoid, redu flaco diphtheria toxoid, and acellular pertussis vaccine, adsorbed Mac Rodríguez MD Work Phone: [facility] Work Phone: 06-21-2007 zoster vaccine, live Mac Rodríguez MD Work Phone: [facility] Work Phone: 01-11-2007 influenza virus vaccine, unspecified formulation Mac Rodríguez MD Work Phone: [facility] Work Phone: 01-05-2006 influenza virus vaccine, unspecified formulation Mac Rodríguez MD Work Phone: [facility] Payers Date Payer Category Payer Medicare [id number] 2015 Private Health Insurance HUMANA HUMANA MEDICARE SUPPLEMENT [id number] 2015-Present [id number] [place] [phone] Indemnity [id number] 2015 Private Health Insurance HUMANA HUMANA MEDICARE SUPPLEMENT [id number] 2015-Present [phone] [address] [address] [place] [address] Indemnity [id number] 2008 Medicare MEDICARE MEDICAR E A AND B [id number] 2008-Present [phone] [address] [address] [place] [address] Medicare [id number] 2008 Medicare MEDICARE MEDICAR E A AND B [id number] 2008-Present [phone] [place] [address] Medicare [id number] 2008 Medicare [id number] Social History Date Type Detail Facility Start: 11-14-2012 End: 12-24-2021 Tobacco smoking status NHIS Never smoked tobacco [facility] Work Phone: Start: 06-12-2021 End: 02-17-2023 Alcohol intake Current drinker of alcohol (finding) [facility] Start: 06-12-2021 End: 09-30-2022 Alcohol intake [facility] Work Phone: Start: 04-21-2021 End: 04-24-2022 History SDOH Alcohol Frequency [address] [facility] Start: 04-21-2021 History SDOH Alcohol Std Drinks [address] [facility] Start: 04-21-2021 End: 04-24-2022 History SDOH Physical Activity DPW [address] [facility] Start: 04-21-2021 History SDOH Physica l Activity MPS [address] [facility] Start: 1945 Sex Assigned At Not on file C [facility] Start: 06-01-2021 End: 12-08-2021 Exposure to SARS-CoV-2 (event) Not sure [facility] Start: 11-14-2012 End: 12-24-2021 Tobacco use and exposure Smokeless tobacco non-user [facility] Start: 04-21-2021 End: 09-30-2022 Alcohol Use Disorder Identification Test - Consumption [AUDIT-C] [facility] Work Phone: How often to you hav e a drink containing alcohol? 2-4 times a month [facility] Work Phone: How many standard dr inks containing alcohol do you have on a typical day? 1 or [address] [facility] Work Phone: How often do you hav e 6 or more drinks on 1 occasion? Never [facility] Work Phone: Adult Depression Screening Assessment [address] [facility] Work Phone: NEGATED: Highlighted row - - WK-Azxrfoj-Diwdc [place] Work Phone: Medical Equipment Procedure Code Equipment Code Equipment Origin al Text Equipment Identifier Dates Lens Acrysof Iq Toric 6mm +18 Diopter +2.25 Cylinder 0 D Biconvex Acrylic - [id number] Start: 06-24-2018 Lens Acrysof Iq Toric Stableforce 6mm 0 D +18.5 Diopter +1.5 Cylinder - [id number] Start: 07-08-2018 Functional Status Date Assessment Result Facility NEGATED: Highlighted row Functional performance Functional status health issues are not documented Disease DK-Nypbgfj-Ivvau [place] Work Phone: Mental Status Date Assessment Result Facility NEGATED: Highlighted row Cognitive function [Interpretation] Cognitive status health issues are not documented Disease XT-Tmiwtai-Xilvc [place] Work Phone: Clinical Notes 01-21-2018 to 02-17-2023 Ashia Alva RPFT - 02/17/2023 7:56 AM Yonatan Alexander MD - 02/15/2023 3:02 PM EST Note Date & Type Note Facility 02-17-2023 Note HNO ID: [id number] Author: Petush, Ashia, RPFT Service: ? Author Type: Respiratory Therapist Type: Progress Notes Filed: 02/17/2023 7:58 AM Note Text: PULM FUNCTION SMARTBLOCK: Provider: Yonatan Sagastume MD Assisting Tech: Artie, Ashia, RPFT Spirometry w/BD: 1 LV - Box: 1 [facility] 02-17-2023 History of Present illness Narrative PULM FUNCTION SMARTBLOCK: Provider: Yonatan Sagastume MD Assisting Tech: Petshelia, Ashia, RPFT Spirometry w/BD: 1 LV - Box: 1 documented in this encounter [facility] 02-15-2023 Note HNO ID: [id number] Author: Rosalie Spivey RT(R) Service: ? Author Type: Api Developer Type: Progress Notes Filed: 02/15/2023 3:29 PM [...] RT Eliza(R) February 15, 2023 3:19 PM [facility] 02-15-2023 Note HNO ID: [id number] Author: Yonatan Sagastume MD Service: ? Author [...] demonstrated to the patient. Yonatan Sagastume MD [facility] 02-15-2023 History of Present illness Narrative This note was created using [employer]. Subjective Madyson Ferris is a 77 year [...] Yonatan Sagastume MD documented in this encounter [facility] 12-08-2022 Note HNO ID: [id number] Author: Yonatan Sagastume MD Service: ? Author Type: Physician Type: Progress Notes Filed: 12/08/2022 1:05 PM Note Text: This note was created using [employer]. Subjective Patient presents with: Hospital F/U Madyson [...] ordered - PSA/PROSTSPECAG SCRN Yonatan Sagastume MD [facility] documented as of this encounter (statuses as of 02/16/2023) [facility]10-03-2023 History of Past illness Narrative* Problem Noted Date Diagnosed Date Resolved Date Open fracture of left distal forearm 12/08/202205/202202/15/2023 Elevated blood pressure reading 04/24/2022 06/01/2022 Rupture of right proximal biceps tendon 01/21/2018 04/21/2021 Bicipital tendinitis of right shoulder 11/26/2017 04/21/2021 Overview: [facility] PSA elevation 05/27/2017 04/01/2018 Overview: Dr. Sandip Srivastava, Urology. 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 05/28/2016 Sprain of neck 02/10/2013 05/28/2016 Bosjdgi-pj-lsg 04/08/2011 05/28/2016 Fissure in ano 04/08/2011 05/28/2016 [...] of this encounter (statuses as of 02/16/2023) [facility] History of Past illness Narrative* Problem Noted Date Diagnosed Date Resolved Date Open fracture of left distal forearm 12/08/202205/202202/15/2023 Elevated blood pressure reading 04/24/2022 06/01/2022 Rupture of right proximal biceps tendon 01/21/2018 04/21/2021 Bicipital tendinitis of right shoulder 11/26/2017 04/21/2021 Overview: [facility] PSA elevation 05/27/2017 04/01/2018 Overview: Dr. Sandip Srivastava, Urology. 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 05/28/2016 Sprain of neck 02/10/2013 05/28/2016 Mhrlnrp-nv-sxg 04/08/2011 05/28/2016 Fissure in ano 04/08/2011 05/28/2016 [...] of this encounter (statuses as of 02/17/2023) [facility]08-24-2023 NoteHNO ID: [id number] Author: Yonatan Sagastume MD Service: ? Author Type: Physician Type: Progress Notes Filed: 10/29/2022 5:04 PM Note Text: This note was created using [employer]. Subjective Madyson Ferris is a 77 year [...] E78.00 Improving. Continue lifestyle changes. Yonatan Sagastume, [facility]08-24-2023 History of Present illness Narrative* Yonatan Sagastume MD - 10/29/2022 4:33 PM EDT This note was created using [employer]. Subjective Madyson Ferris is a 77 year [...] changes. Yonatan Sagastume MD [facility] NoteHNO ID: [id number] Author: Yonatan Sagastume MD Service: ? Author Type: Physician Type: Progress Notes Filed: 09/30/2022 5:00 PM Note Text: This note was created using [employer]. Subjective Madyson Ferris is a 77 year [...] reassess. Continue stretching and massages. Yonatan Sagastume, [facility]07-26-2023 History of Present illness Narrative* Yonatan Sagastume MD - 09/30/2022 4:54 PM EDT This note was created using [employer]. Subjective Madyson Ferris is a 77 year [...] massages. Yonatan Sagastume MD [facility] Miscellaneous Notes* Telephone Encounter - Yvonne Cardoso LPN - 06/05/2022 12:42 PM EDT Patient returned call and went over results from Shraddha Hu PIG BREEDER with understanding. * Telephone Encounter - Chloe [...] xray results. Shakila Garland [facility]23 NoteHNO ID: [id number] Author: RT Kirsten(R) Service: Nuclear Medicine Author [...] BY: RT Kirsten(R) June 01, 2022 5:27 [facility]03-27-2023 NoteHNO ID: [id number] Author: Yonatan Sagastume MD Service: ? Author Type: Physician Type: Progress Notes Filed: 06/01/2022 5:29 PM Note Text: This note was created using [employer]. Subjective Madyson Ferris is a 77 year [...] 3 GRAM/3.8 GRAM ORAL POWDER Yonatan Sagastume, [facility]03-27-2023 History of Present illness Narrative* Yonatan [...] POWDER Yonatan Sagastume MD [facility] History of Past illness Narrative* Problem Noted [...] 09/13/2013 05/28/2016 Sprain of neck 02/10/2013 05/28/2016 Ysgardk-np-kzt 04/08/2011 05/28/2016 Fissure in ano 04/08/2011 05/28/2016 [...] of this encounter (statuses as of 10/30/2022) [facility]03-27-2023 History of Past illness Narrative* Problem Noted Date Diagnosed Date Resolved Date Chronic cough 06/01/2022 10/29/2022 Elevated blood pressure reading 04/24/2022 06/01/2022 Rupture of right proximal biceps tendon 01/21/2018 04/21/2021 Bicipital tendinitis of right shoulder 11/26/2017 04/21/2021 Overview: [facility] PSA elevation 05/27/2017 04/01/2018 Overview: Dr. Sandip Srivastava, Urology. 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 05/28/2016 Sprain of neck 02/10/2013 05/28/2016 Slgpkct-og-aqb 04/08/2011 05/28/2016 Fissure in ano 04/08/2011 05/28/2016 [...] of this encounter (statuses as of 12/12/2022) [facility]03-20-2023 NoteHNO ID: [id number] Author: Akhil Mcgowan APRN.BUSINESS MANAGEMENT CONSULTANT Service: ? Author Type: Nurse Practitioner Type: Progress Notes Filed: 05/26/2022 10:49 AM Note Text: [facility] [place] [facility] Guerrero Department of Cardiovascular Medicine SECTION [...] which included preparing to see the patient, nzhd-ym-usct patient care, completing clinical documentation, performing a medically appropriate examination, counseling and educating the patient/family/caregiver, independently interpreting results (not separately reported), and communicating results to the patient/family/caregiver. Thank you very much for allowing me to assist in the care of Madyson Ferirs. The above information was discussed at length and detail with the patient who verbalized an understanding of the plan and was given ample opportunity to ask questions. The appropriate follow up has been arranged. I have advised the patient to contact me if any questions/problems arise prior to the follow up. Akhil Mcgowan APRN.[facility] Cardiology Nurse Practitioner Section of [facility] Cardiology [facility] Dept of Cardiovascular Medicine [facility] [place] [address] [place] [address] Office Office May 25, 2022 12:28 PM This note was partially generated using [employer] voice recognition system and may contain errors [...] 04/16/2021 1.04 03/14/2020 0 (more content not included)...[facility]02-17-2023 NoteHNO ID: [id number] Author: Yonatan Sagastume MD Service: ? Author Type: Physician Type: Progress Notes Filed: 04/24/2022 3:19 PM Note Text: This note was created using ScanSocialriter. Subjective Madyson Ferris is a 77 year [...] Abs Lymph 1.00 - 4.00 k/uL 1.01 Marin% % 12.5 Abs Marin <0.87 k/uL 0.42 Eosin% % 3.3 Abs [...] may help reduce CV risk in the skilled nursing. Risks: Possible side effects were discussed including myalgia, liver inflammation. Possible interactions: n/a. Approved use or off label use: Yes. - ATORVASTATIN 10 MG TABLET - LIPID PANEL BASIC - COMP METABOLIC PANEL Yonatan Sagastume [facility]02-17-2023 NoteHNO ID: [id number] Author: Yonatan Sagastume MD Service: ? Author Type: Physician Type: Progress Notes Filed: 04/24/2022 3:19 PM Note Text: Madyson Ferris is a 77 year old male here for a Medicare Subsequent Annual Wellness Visit Health Risk Assessment In general, health is: Excellent Concerns with balance:Not at all Concerns with teeth or dentures:Not at all Concerns with sexual function:Not at all [place] anxious, stressed, angry, irritable, lonely, isolated, or [...] - General (Internal Medicine) Outside specialists seen: [facility] in [place]. Dr. Barrios, dentist. Dr. Moreno, gastroenterology. Dr. [...] weight loss. BMI 27.07 kg/(m2) - Depression screeningV[facility] Health Administration02-17-2023 History of Present illness Narrative* Yonatan Sagastume MD - 04/24/2022 2:51 PM EST This note was created using [employer]. Subjective Madyson Ferris is a 77 year [...] Abs Lymph 1.00 - 4.00 k/uL 1.01 Marin% % 12.5 Abs Marin <0.87 k/uL 0.42 Eosin% % 3.3 Abs [...] may help reduce CV risk in the skilled nursing. Risks: Possible side effects were discussed including [...] all Concerns with sexual function:Not at all [place] anxious, stressed, angry, irritable, lonely, isolated, or [...] - General (Internal Medicine) Outside specialists seen: [facility] in [place]. Dr. Barrios, dentist. Dr. Moreno, gastroenterology. Dr. [...] - Depression screening documented in this encounterCleveland [id number] Nurse Note* Carrol Camarena LPN - 04/24/2022 2:18 PM EST VISUAL ACUITY: Today's exam: Vision Correction? No vision correction: RIGHT EYE: 20/20 LEFT EYE: 20/ 30 BOTH EYES: 20/25 documented [facility] History of Past illness Narrative* Problem Noted Date Resolved Date Elevated blood pressure reading 04/24/2022 06/01/2022 Rupture of right proximal biceps tendon 01/22/20 18 04/21/2021 Bicipital tendinitis of right shoulder 8 04/21/2021 Overview: [facility] PSA elevation 05/27/2017 04/01/2018 Overview: Dr. Sandip Srivastava, Urology. GERD with esophagitis 02/04/2016 04/24/2022 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/13/2013 05/28/2016 Sprain of neck 02/10/2013 05/28/2016 Ppcgplh-dj-itj 04/08/2011 05/28/2016 Fissure in ano 04/08/2011 05/28/2016 [...] of this encounter (statuses as of 06/02/2022) [facility]02-17-2023 History of Past illness Narrative* Problem Noted [...] 09/13/2013 05/28/2016 Sprain of neck 02/10/2013 05/28/2016 Rdvzrfd-rw-xdl 04/08/2011 05/28/2016 Fissure in ano 04/08/2011 05/28/2016 [...] of this encounter (statuses as of 06/05/2022) [facility]02-17-[facility]23 History of Past illness Narrative* Problem Noted [...] 09/13/2013 05/28/2016 Sprain of neck 02/10/2013 05/28/2016 Kjdxjjw-qd-rjv 04/08/2011 05/28/2016 Fissure in ano 04/08/2011 05/28/2016 [...] of this encounter (statuses as of 10/01/2022) [facility]02-06-2023 Miscellaneous Notes* Telephone Encounter - Kapil Snow [...] message. Evelyn Peña LPN documented in this encounterMer[facility]10-19-2022 Instructions* Patient Instructions* Shraddha Hu APRN.CNP - 12/24/2021 8:13 AM EDT Start Flonase over the counter. Use daily for two weeks and let me know if your symptoms don't improve documented in this encounterMer[facility]10-[facility]-2022 History of Present illness Narrative* Shraddha Hu [...] reflux External hemorrhoids without mention of complication Yjjhqna-fu-bvc 04/08/2011 GERD with esophagitis 02/04/2016 History of [...] PROSTATE BLEED COMPLETE 03/10/2019 [facility] RMVL INSJ IO LENS PROSTH [...] plan. Shraddha Hu APRN.CNP documented in this encounterMer[facility]08-02-2022 History of Present illness Narrative* Ruth Warren LPN - 10/07/2021 2:35 PM EDT Patient presents for COVID booster. Denies any problems at this time. Tolerated injection well. Ruth Warren LPN documented in this encounterMer[facility]04-20-[facility] History of Present illness Narrative* Darrion Blackwell MD - 06/25/2021 10:03 AM EDT FOLLOW UP VISIT - ENDOSCOPY - RECURRENT SYMPTOMS NAME: Madyson Ferris [facility] NO.: [id number] DATE OF SERVICE:June 24, 2021 : 1945 [...] recurred I am comfortable with him taking nqus-pzt-jzghsrl Prilosec 20 mg indefinitely. At this point [...] instructed to follow-up with me as needed. Darrino Blackwell MD documented in this encounterMer[facility]. [facility]04-07-2022 History of Present illness Narrative* Mac Rodríguez MD - 06/12/2021 8:47 AM EDT Mac Rodríguez MD Department of Orthopaedics Orthopaedics [address] [place] [address] Dept: [phone] Dept June 12, 2021 CHIEF COMPLAINT: New [...] at the 2nd through 5th DIP joints. Mgmt Consultant: ALBARO Transcribe Date/Time: Jun 12 2021 8:49A [...] reflux External hemorrhoids without mention of complication Ccjuxls-ys-eoe 04/08/2011 GERD with esophagitis 02/04/2016 History of [...] PROSTATE BLEED COMPLETE 03/10/2019 [facility] RMVL INSJ IO LENS PROSTH [...] electronic medical record. SELF Yonatan Sagastume MD [address] [facility] [address] Mac Rodríguez MD documented in this encounterMer[facility]11-16-2018 History of Past illness Narrative* Problem Noted [...] 09/13/2013 05/28/2016 Sprain of neck 02/10/2013 05/28/2016 Ikqerps-je-oer 04/08/2011 05/28/2016 Fissure in ano 04/08/2011 05/28/2016 [...] of this encounter (statuses as of 06/12/2021) [facility] History of Past illness Narrative* Problem Noted Date Resolved Date Rupture of right proximal biceps tendon 01/22/20 18 04/21/2021 Bicipital tendinitis of right shoulder 8 04/21/2021 Overview: [facility] PSA elevation 05/27/2017 04/01/2018 Overview: Dr. Sandip Srivastava, Urology. 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/13/2013 05/28/2016 Sprain of neck 02/10/2013 05/28/2016 Ayrsldw-yg-zlm 04/08/2011 05/28/2016 Fissure in ano 04/08/2011 05/28/2016 [...] of this encounter (statuses as of 06/25/2021) [facility] of Past illness Narrative* Problem Noted Date Resolved Date Rupture of right proximal biceps tendon 01/22/20 18 04/21/2021 Bicipital tendinitis of right shoulder 8 04/21/2021 Overview: [facility] PSA elevation 05/27/2017 04/01/2018 Overview: Dr. Sandip Srivastava, Urology. 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/13/2013 05/28/2016 Sprain of neck 02/10/2013 05/28/2016 Hcsreda-qw-ntp 04/08/2011 05/28/2016 Fissure in ano 04/08/2011 05/28/2016 [...] of this encounter (statuses as of 10/07/2021) [facility] of [facility] illness Narrative* Problem Noted Date Resolved Date Rupture of right proximal biceps tendon 01/22/20 18 04/21/2021 Bicipital tendinitis of right shoulder 8 04/21/2021 Overview: [facility] PSA elevation 05/27/2017 04/01/2018 Overview: Dr. Sandip Srivastava, Urology. 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/13/2013 05/28/2016 Sprain of neck 02/10/2013 05/28/2016 Lknnrso-wp-vgy 04/08/2011 05/28/2016 Fissure in ano 04/08/2011 05/28/2016 [...] of this encounter (statuses as of 12/12/2021) [facility] of Past illness Narrative* Problem Noted [...] 09/13/2013 05/28/2016 Sprain of neck 02/10/2013 05/28/2016 Dattufk-sf-zlz 04/08/2011 05/28/2016 Fissure in ano 04/08/2011 05/28/2016 [...] of this encounter (statuses as of 12/24/2021) [facility] of Past illness Narrative* Problem Noted Date Resolved Date Rupture of right proximal biceps tendon 01/22/20 18 04/21/2021 Bicipital tendinitis of right shoulder 8 04/21/2021 Overview: [facility] PSA elevation 05/27/2017 04/01/2018 Overview: Dr. Sandip Srivastava, Urology. 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/13/2013 05/28/2016 Sprain of neck 02/10/2013 05/28/2016 Fwlhhwq-qp-ckr 04/08/2011 05/28/2016 Fissure in ano 04/08/2011 05/28/2016 [...] of this encounter (statuses as of 04/13/2022) [facility] of Past illness Narrative* Problem Noted Date Resolved Date Rupture of right proximal biceps tendon 01/22/20 18 04/21/2021 Bicipital tendinitis of right shoulder 8 04/21/2021 Overview: [facility] PSA elevation 05/27/2017 04/01/2018 Overview: Dr. Sandip Srivastava, Urology. 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 documented in this encounter [facility] note* Diagnosis Gastroesophageal reflux disease with esophagitis, unspecified whether hemorrhage- Primary documented in this encounter [facility] note* Diagnosis Need for vaccination- Primary Need for prophylactic vaccination and inoculation against unspecified single disease documented in this encounter [facility] note* Diagnosis Subacute cough- Primary Cough documented in this encounter [facility] note* Diagnosis Hypercholesterolemia- Primary Pure hypercholesterolemia Impaired fasting glucose Gastroesophageal reflux disease with esophagitis without hemorrhage documented in this encounter [facility] note* Diagnosis Medicare annual wellness visit, subsequent- Primary Routine general medical examination at a health care facility Elevated blood pressure reading Elevated blood pressure reading without diagnosis of hypertension Hypercholesterolemia Pure hypercholesterolemia documented in this encounter [facility] note* Diagnosis Chronic cough- Primary Cough Hypercholesterolemia Pure hypercholesterolemia documented in this encounter [facility] note* Diagnosis Pain of left calf- Primary Pain in limb documented in this encounter [facility] note* Diagnosis Persistent insomnia- Primary Persistent disorder of initiating or maintaining sleep Hypercholesterolemia Pure hypercholesterolemia documented in this encounter [facility] note* Diagnosis Chronic cough- Primary Cough documented in this encounter [facility] note* Diagnosis Chronic cough Cough documented in this encounter [facility] note* Diagnosis Chronic cough Cough documented in this encounter [facility] for referral (narrative)* Outpatient Procedure (Routine) - Authorized Specialty Diagnoses / Procedures Referred By Gaviota gastelum [facility] Diagnoses Chronic cough Procedures LUNG VOLUMES Yonatan Sagastume MD [address] [place] [address] Respiratory [place] [address] [place], [place] [address] [address] Referral ID Status Reason Start Date Expiration Date Visits Requested Visits Authorized [id number] Authorized Auto-Generat ed Referral 3 03/16/2024 1 1 * Outpatient Procedure (Routine) - Authorized Specialty Diagnoses / Procedures Referred By Gaviota gastelum Referred [facility] Diagnoses Chronic cough Procedures SPIROMETRY WITH DILATOR IF OBSTRUCTED BRNCDILAT RSPSE SPMTRY PRE&POST-BRNCDILAT ADMN Yonatan Sagastume MD [address] [place] [address] Respiratory [place] [address] [place] [address] Referral ID Status Reason Start Date Expiration Date Visits Requested Visits Authorized [id number] Authorized Auto-Generat ed Referral 3 03/16/2024 1 1 Healthcare System Summary Purpose Family History No Family History [...] FoundDocuments on File Type Date Recorded 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 Advance Directive(s) 04/18/2020 6:48 AM Advance Directive(s) 03/29/2020 2:00 PM Advance Directive(s) 06/17/2018 12:17 PM Advance Directive(s) 06/17/2018 12:22 PM Advance Directive(s) 01/28/2016 5:58 AM Advance Directive(s) 01/20/2016 4:48 PM Advance Directive(s) 02/01/2009 10:32 PM Documents on File Type Date Recorded 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 cystoscopy 2. transurethral resection of the prostate Condition at Discharge: Satisfactory Disposition at Discharge: .Home Vital Signs: T PRBPSpO2 [id number]/[id number]% Date/Time03/11 7:531/4 7:531/4 7:531/4 7:531/4 7:53 Range(36.2C [...] the prostate Surgeon: Dr. Rk John Resident/Fellow/Other Senior Coldfusion Developer: Dr. Román Wise, Dr. Bee Cantu Estimated [...] Hospital Course Note Send Summary: Discharge Summ blackwell Providers: Provider RoleProvider Name ReferringRk John PrimaryYonatan Sagastume AttendingRk John Note Recipients: Rk John MD Velasquez, Victor D, MD - [phone] [] Discharge: Summary: Admission Date: .10-Mar-2019 09:33:00 Discharge Date: 11-Mar-2019 Attending Physician at Discharge: Rk John Admission Reason: BPH Final Discharge Diagnoses: BPH Procedures: Date: 10-Mar-2019 13:00:00 Procedure Name: 1. cystoscopy 2. transurethral resection of the prostate Condition at Discharge: Satisfactory Disposition at Discharge: .Home Vital Signs: T PRBPSpO2 [id number]/8294% Date/Time03/11 7:531 7:531 7:531 7:531 7:53 Range(36.2C [...] the prostate Surgeon: Dr. Rk John Resident/Fellow/Other Senior Coldfusion Developer: Dr. Román Wise, Dr. Bee Cantu Estimated [...] the prostate Surgeon: Dr. Rk John Resident/Fellow/Other Senior Coldfusion Developer: Dr. Román Wise, Dr. Bee Cantu Estimated [...] DATE CREATED AUTHOR AUTHOR'S ORGANIZ ATION 01/14/2019 [facility] ([place]) DATE CREATED AUTHOR AUTHOR'S ORGANIZ ATION 03/29/2019 [employer] DATE CREATED AUTHOR AUTHOR'S ORGANIZ ATION 04/05/2019 [facility] DATE CREATED AUTHOR AUTHOR'S ORGANIZ ATION 04/20/2020 [facility] DATE CREATED AUTHOR AUTHOR'S ORGANIZ ATION 02/17/2023 [facility] Source Comments (unrecognize d section and content) In the event this informatio n is protected by the Federal Confidentiality of Alcohol and Drug Abuse Patient Records regulations: The Federal rules restrict any use of the information to criminally investigate or prosecute any alcohol or drug abuse patient.[facility] Center[facility] the event this information is protected by the Federal Confidentiality of Alcohol and Drug Abuse Patient Records regulations: The Federal rules restrict any use of the information to criminally investigate or prosecute any alcohol or drug abuse patient.[facility] CenterIn the event this information is protected by the Federal Confidentiality of Alcohol and Drug Abuse Patient Records regulations: The Federal rules restrict any use of the information to criminally investigate or prosecute any alcohol or drug abuse patient.[facility] CenterIn the event this information is protected by the Federal Confidentiality of Alcohol and Drug Abuse Patient Records regulations: The Federal rules restrict any use of the information to criminally investigate or prosecute any alcohol or drug abuse patient.[facility] CenterIn the event this information is protected by the Federal Confidentiality of Alcohol and Drug Abuse Patient Records regulations: The Federal rules restrict any use of the information to criminally investigate or prosecute any alcohol or drug abuse patient.[facility] CenterIn the event this information is protected by the Federal Confidentiality of Alcohol and Drug Abuse Patient Records regulations: The Federal rules restrict any use of the information to criminally investigate or prosecute any alcohol or drug abuse patient.[facility] CenterIn the event this information is protected by the Federal Confidentiality of Alcohol and Drug Abuse Patient Records regulations: The Federal rules restrict any use of the information to criminally investigate or prosecute any alcohol or drug abuse patient.[facility] CenterIn the event this information is protected by the Federal Confidentiality of Alcohol and Drug Abuse Patient Records regulations: The Federal rules restrict any use of the information to criminally investigate or prosecute any alcohol or drug abuse patient.[facility] CenterIn the event this information is protected by the Federal Confidentiality of Alcohol and Drug Abuse Patient Records regulations: The Federal rules restrict any use of the information to criminally investigate or prosecute any alcohol or drug abuse patient.[facility] CenterIn the event this information is protected by the Federal Confidentiality of Alcohol and Drug Abuse Patient Records regulations: The Federal rules restrict any use of the information to criminally investigate or prosecute any alcohol or drug abuse patient.[facility] CenterIn the event this information is protected by the Federal Confidentiality of Alcohol and Drug Abuse Patient Records regulations: The Federal rules restrict any use of the information to criminally investigate or prosecute any alcohol or drug abuse patient.[facility] CenterIn the event this information is protected by the Federal Confidentiality of Alcohol and Drug Abuse Patient Records regulations: The Federal rules restrict any use of the information to criminally investigate or prosecute any alcohol or drug abuse patient.[facility] CenterIn the event this information is protected by the Federal Confidentiality of Alcohol and Drug Abuse Patient Records regulations: The Federal rules restrict any use of the information to criminally investigate or prosecute any alcohol or drug abuse patient.[facility] CenterIn the event this information is protected by the Federal Confidentiality of Alcohol and Drug Abuse Patient Records regulations: The Federal rules restrict any use of the information to criminally investigate or prosecute any alcohol or drug abuse patient.[facility] CenterIn the event this information is protected by the Federal Confidentiality of Alcohol and Drug Abuse Patient Records regulations: The Federal rules restrict any use of the information to criminally investigate or prosecute any alcohol or drug abuse patient.[facility] Reason for Visit (unrecogniz ed section and [...] RSPSE SPMTRY PRE&POST-BRNCDILAT ADMN Yonatan Sagastume MD [address] [place] [address] Res[facility] [place] [address] [place] [address] Referral ID Status Reason Start Date Expiration Date V isits Requested Visits Authorized [id number] Closed Auto-Generate d Referral 02/15/2023 03/16/2024 1 1 Care Teams (unrecognized sec tion and content) Advanced Practice Psychiatric Nurse Relationship Specialty Start Date End Date Yonatan Sagastume MD [address] [place] [address] [phone] PCP - General Internal Medicine 12/26/15 Advanced Practice Psychiatric Nurse Relationship Specialty Start Date End Date Yonatan Sagastume MD [address] [place] [address] [phone] PCP - General Internal Medicine 12/26/15 Advanced Practice Psychiatric Nurse Relationship Specialty Start Date End Date Yonatan Sagastume MD [address] [place] [address] [phone] PCP - General Internal Medicine 12/26/15 Advanced Practice Psychiatric Nurse Relationship Specialty Start Date End Date Yonatan Sagastume MD [address] [place] [address] [phone] PCP - General Internal Medicine 12/26/15 Advanced Practice Psychiatric Nurse Relationship Specialty Start Date End Date Yonatan Sagastume MD [address] [place] [address] PCP - General Internal Medicine 12/26/15 Advanced Practice Psychiatric Nurse Relationship Specialty Start Date End Date Yonatan Sagastume MD [address] [place] [address] PCP - General Internal Medicine 12/26/15 Advanced Practice Psychiatric Nurse Relationship Specialty Start Date End Date Yonatan Sagastume MD [address] [place] [address] PCP - General Internal Medicine 12/26/15 Advanced Practice Psychiatric Nurse Relationship Specialty Start Date End Date Yonatan Sagastume MD [address] [place] [address] PCP - General Internal Medicine 12/26/15 Advanced Practice Psychiatric Nurse Relationship Specialty Start Date End Date Yonatan Sagastume MD [address] [place] [address] PCP - General Internal Medicine 12/26/15 Advanced Practice Psychiatric Nurse Relationship Specialty Start Date End Date Yonatan Sagastume MD [address] [place] [address] PCP - General Internal Medicine 12/26/15 Advanced Practice Psychiatric Nurse Relationship Specialty Start Date End Date Yonatan Sagastume MD [address] [place] [address] PCP - General Internal Medicine 12/26/15 Advanced Practice Psychiatric Nurse Relationship Specialty Start Date End Date Yonatan Sagastume MD [address] [place] [address] PCP - General Internal Medicine 12/26/15 Advanced Practice Psychiatric Nurse Relationship Specialty Start Date End Date Yonatan Sagastume MD [address] [place] [address] PCP - General Internal Medicine 12/26/15 FOR [...] BE BASED ON THE PRIMARY CLINICAL RECORDS. [employer] [facility]. provides no warranty or guarantee of the accuracy or completeness of information in this document.
--- NOTE | 2023-03-06 11:25 | CASEMGMT ---
RN CM Face to Face with patient for initial transition planning/care coordination assessment. RN CM introduced self and role at [facility]. Patient lying in bed, alert and oriented. Patient willing to participate in assessment and is able to answer all questions appropriately. Care providers, pharmacy, and demographics verified. Patient wishes to discharge home, denies need for home health at this time. Patient states he has no further needs or concerns at this time. CM to follow for discharge planning needs that may arise. PCP: Daniel Specialists: [facility]; [facility] Preferred Pharmacy: [facility] Insurance: [place], [employer] Prescription Benefit: yes Living Will/HPOA: yes, Estelita Ferris LNOK: Living Arrangements: Patient lives with in a single story home with 2 steps to enter. Patient states he is independent at home. Transportation: self, DME/HHC: Patient denies DME in the home. Will monitor for home oxygen, prefers [employer]. No previous HHC or SNF Disposition Plan: Patient to discharge home with family support and follow-up plans in place. Will monitor for home oxygen. Judith NORWOOD, RN, CM
[2023-03-06] MEDS: KCL 20MEQ in 0.9% NS 20 MEQ/1,000 ML IV.SOLN. 150 MEQ IV ×2 (11:59→20:18)
[2023-03-06 12:16] LABS: Reflex Lactate? Y
[2023-03-06] MEDS: APIXABAN 5 MG TABLET PO ×2 (12:35→20:59)
[2023-03-06] MEDS: guaiFENesin/D-Methorphan TAB.SR.12H 2 TABLET PO ×2 (12:35→20:59)
[2023-03-06 13:45] LABS: Lactic Acid 2.9 mmol/L (0.4-1.9)
[2023-03-06 17:43] LABS: Lactic Acid 2.5 mmol/L (0.4-1.9)
[2023-03-06] MEDS: Lactated Ringers 1,000 ML 999 ML IV (18:34)
[2023-03-06] MEDS: Metoprolol Tartrate 25 MG Tablet 12.5 MG PO (21:00)
[2023-03-06 21:25] LABS: Reflex Lactate? Y
[2023-03-06 22:49] LABS: Lactic Acid 2.2 mmol/L (0.4-1.9)
[2023-03-07] VITALS (13 sets, daily range): BP systolic 103–129; BP diastolic 67–89; PULSE 82–98; RESP 16–18; TEMP 36.1–36.6; O2SAT 93–96; BMI 25.6
[2023-03-07 06:00] LABS: Hematocrit 38.2 % (40-54); Hemoglobin 12.9 g/dL (13.0-16.5); Mean Corp Hgb Conc 33.8 g/dL (32-36); Mean Corpuscular Hgb 32.6 pg (27.0-32.0); Mean Corpuscular Volume 96.5 fL (80-94); Mean Platelet Vol. 11.2 fl (6.2-12.0); POSITIVE DIFFERENTIAL YES; POSITIVE MORPHOLOGY YES; Platelet Count 128 K/mm3 (150-450); RBC Distribution Width CV 13.8 % (11.6-14.6); RBC Distribution Width SD 49.4 fl (35.1-43.9); Red Blood Count 3.96 M/mm3 (4.6-6.2)
[2023-03-07 06:28] LABS: Anion Gap 7 (5-15); BUN 33 mg/dL (7-18); BUN/Creat Ratio 33.3 RATIO (10-20); Calcium,Total 8.3 mg/dL (8.5-10.1); Chloride 109 mmol/L (98-107); Creatinine, Serum 0.99 mg/dL (0.70-1.30); EST Glomerular Filtration Rate 77 mL/min (>60); Est Glom Filt Rate - Afr Amer 94 mL/min (>60); Estimated Creatinine Clearance 66.41 ml/min; Glucose 89 mg/dL (74-106); Sodium Level 137 mmol/L (136-145); Thyroid Stim Hormone (TSH) 2.45 uIU/mL (0.358-3.74)
[2023-03-07 07:00] LABS: Differential Indicated MANUAL DIFF
[2023-03-07 07:02] LABS: Lymphocyte 6 % (19-41); Metamyelocyte 4 % (0-1); Monocyte 6 % (0-10); Neutrophil-Band 6 % (0-5); Neutrophil-Segmented 78 % (47-70); Total Cells Counted 100 (MANUAL DIFF)
[2023-03-07 07:03] LABS: Absolute Lymphocyte Count 0.42 X10^3/uL (0.83-4.51); Absolute Neutrophil Count 6.2 X10^3/uL (2.0-7.7); Lymphocyte # 0.42 X10^3/ul (0.83-4.51); Neutrophil # 6.15 X10^3/uL (2.7-7.7)
[2023-03-07 07:05] LABS: Platelet Estimate ADEQUATE (ADEQ); Red Cell Morphology NORM C+C NORMAL (NORM C&C)
--- NOTE | 2023-03-07 07:48 | PCM.PN.HOSP ---
Reason for Visit Reason for Visit: Diagnoses Unspecified atrial fibrillation (03/06/23) Pneumonia, unspecified organism (03/06/23) Objective Data Objective Data Vital Signs: Vital Signs Temp Pulse Resp BP Pulse Ox O2 Del Method O2 Flow Rate 97.4 F L 82 18 117/74 94 Nasal Cannula 3 03/07/23 05:00 03/07/23 05:00 03/07/23 05:00 03/07/23 05:00 03/07/23 05:00 03/07/23 05:00 03/07/23 05:00 Oxygen Flow Rate (L/min) 3 Oxygen Delivery Method Nasal Cannula Weight: 188 lb 14.978 oz Body Mass Index (BMI) 25.6 Intake & Output: Intake and Output for Last 24 Hours 03/05/23 03/06/23 03/07/23 23:59 23:59 23:59 Intake Total 3745 / 3745 1000 / 1000 Output Total 50 / 50 Balance 3695 / 3695 1000 / 1000 Lab / Micro Data 03/07/23 05:14 03/07/23 05:14 Labs: Laboratory Results - last 24 hr 03/06/23 07:37: WBC 3.6 L, RBC 4.34 L, Hgb 14.4, Hct 41.2, MCV 94.9 H, MCH 33.2 H, MCHC 35.0, RDW Std Deviation 48.3 H, RDW Coeff of Alexy 13.9, Plt Count 141 L, MPV 10.9, Immature Gran % (Auto) 0.300, Neut % (Auto) 85.7 H, Lymph % (Auto) 8.1 L, [place] % (Auto) 5.3, Eos % (Auto) 0.0, Baso % (Auto) 0.6, Absolute Neuts (auto) 3.1, Absolute Lymphs (auto) 0.29 L, Nucleated RBC % 0, Differential Comment SCANNED, Diff Path Review July foll, PT 18.1 H, INR 1.5, APTT 30.2, Sodium 133 L, Potassium 4.0, Chloride 103, Carbon Dioxide 24.0, Anion Gap 6, BUN 35 H, Creatinine 1.46 H, Estim Creat Clear Calc 45.03, Est GFR (MDRD) Af Amer 60, Est GFR (MDRD) Non-Af 49 L, BUN/Creatinine Ratio 24.0 H, Glucose 123 H, Lactic Acid 2.8 H*, Calcium 9.1, Phosphorus 3.6, Magnesium 1.7, Total Bilirubin 2.70 H, Direct Bilirubin 0.50 H, AST 11 L, ALT 14 L, Alkaline Phosphatase 66, Troponin I High Sens 9, Total Protein 7.0, Albumin 3.1 L, Globulin 3.9 03/06/23 08:12: Procalcitonin 12.77 H 03/06/23 10:13: Troponin I High Sens 12 03/06/23 12:38: Lactic Acid 2.9 H* 03/06/23 16:33: Lactic Acid 2.5 H* 03/06/23 22:07: Lactic Acid 2.2 H* 03/07/23 05:14: WBC 7.0, RBC 3.96 L, Hgb 12.9 L, Hct 38.2 L, MCV 96.5 H, MCH 32.6 H, MCHC 33.8, RDW Std Deviation 49.4 H, RDW Coeff of Alexy 13.8, Plt Count 128 L, MPV 11.2, Neut % (Auto) Not Reportable, Absolute Neuts (auto) 6.2, Absolute Lymphs (auto) 0.42 L, Total Counted 100, Neutrophils % (Manual) 78 H, Band Neutrophils % 6 H, Lymphocytes % (Manual) 6 L, Monocytes % (Manual) 6, Metamyelocytes % 4 H, Diff Path Review July, Platelet Estimate ADEQUATE, RBC Morphology NORM C+C, Sodium 137, Potassium 4.0, Chloride 109 H, Carbon Dioxide 21.0, Anion Gap 7, BUN 33 H, Creatinine 0.99, Estim Creat Clear Calc 66.41, Est GFR (MDRD) Af Amer 94, Est GFR (MDRD) Non-Af 77, BUN/Creatinine Ratio 33.3 H, Glucose 89, Calcium 8.3 L, TSH 2.45 Micro: Microbiology 03/07/23 03:00 Urine, Clean Catch Legionella Antigen - Final 03/07/23 03:00 Urine, Clean Catch Streptococcus pneumoniae Antigen (M - Final 03/06/23 07:37 Mucosa - Nose SARS-CoV-2, Influenza & RSV (PCR) - Final Radiography Diagnostic Testing: Radiology Impression Chest X-Ray 03/06/23 07:50 IMPRESSION: Right upper lobe pneumonia. Electronically Signed: Zach Perez, at 10:04 EST , Physical Exam Narrative Patient is afebrile since admission. Blood pressure is a stabilized 116/78. Patient is having good urine output after vigorous IV fluid rehydration yesterday. Overall he feels better with regards to shortness of breath. He states his appetite is coming back. monitoring manager shows patient is still in A-fib but heart rate controlled. Physical exam General: Alert, Oriented x3, Cooperative HEENT: Atraumatic, PERRLA, EOMI, Normocephalic Oral: Oral mucosa dry. No Gingival or Mucosal Lesions/ Ulcerations Neck: Supple, No JVD, Negative Carotid Bruits Lungs: Air entry diminished in bilateral lung bases. Mild coarse crepitation on right lung base. No wheezing. Mild hypoxia. Tachypnea resolved. Cardiovascular: Still in A-fib. Normal S1, Normal S2, No murmurs Abdomen: Bowel Sounds Present, Soft, Non Tender, Non-Distended : No renal angle tenderness. No suprapubic tenderness. Extremities: No edema, Capillary Refill Less than 3 Seconds Skin: No rashes, No breakdown Musculoskeletal: No Tenderness to Palpation of Joints or Extremities Neurological: Cranial nerves II-XII grossly intact, DTR 2+/4. No acute focal neurological deficit. Psych/Mental Status: Flat affect. Assessment & Plan Assessment/Plan (1) Atrial fibrillation, new onset: (2) Community acquired pneumonia: QUALIFIERS: Laterality: right Lung location: middle lobe of lung Qualified Code(s): J18.9 - Pneumonia, unspecified organism PLAN: Plan This is 77-year-old gentleman being admitted for right-sided pneumonia and new onset A-fib RVR 1. Right upper/middle lobe community-acquired pneumonia with tachypnea and mild hypoxia complicated into GNR bacteremia: Patient is being admitted in PCU. Patient is treated with IV fluid. All the patient mild one-time transient hypotension, BP 89/60. Patient soon recovered and does not meet the criteria for sepsis. Pneumonia workup including blood cultures x 2 ordered. Procalcitonin is high at 12.77. Patient has mild leukopenia, mild thrombocytopenia neutrophilia, lymphopenia. Lactic acid 2.8. Patient is started on IV ceftriaxone and azithromycin, Mucinex DM, incentive spirometry and Pep. 03/07: Lactic acid was elevated 2.8, 2.9 and then improved to 2.2 after IV fluid resuscitation and antibiotic treatment. Blood pressure monitoring did not show drop below 90 mmHg after admission. Patient also clinically improving. Normal WBC count although came with mild leukopenia. Neutrophils 78%, bands 6%, lymphocytes 6%, lymphopenia. Metamyelocytes 4%. Preliminary aerobic blood culture showing gram-negative coccobacilli probably haemophilus influenza. Full identification and sensitivity pending. 2. New onset A-fib with RVR most likely precipitated by pneumonia: Patient denies prior history of A-fib and I think it might be transient, preceded by respiratory infection. Will resuscitate with IV fluid as RVR might be due to hypovolemia or infection. Eliquis 5 mg twice daily. If heart rate is still high despite adequate IV fluid resuscitation, will start on metoprolol 12.5 mg twice daily. 03/07: Patient is still in A-fib although heart rate getting better, 90s. BP 160s/78. Continue low-dose metoprolol and Eliquis. 3. BPH:Patient not on any medication and denies any acute lower urinary tract symptoms including dysuria. On vitamin and nutritional supplement at home. Continue vitamin D3. DVT prophylaxis: Eliquis 5 mg twice daily admission above. Total time of the visit including total time spent in counseling or coordination of care, (more than 50% of the total time, spent in obtaining medical information from nurses and other ancillary care providers,explaining to the patient about labs, imaging, diagnosis and management of active complex medical conditions), complex medical situation including complicated pneumonia with bacteremia, review of labs and imaging is 40 minutes. Living will/advanced directive/end of life care: Patient does have living will or advanced directive. His near the bedside is power of workers compensation attorney for health. After discussion of benefits/risks procedures involved with full code, DNR CC arrest and DNR CC, the patient and his opted for full code for now. Patient does want artificial life support including intubation, tube feed, ventilator and/chest compression, central venous catheter, vasopressor and DC shock if needed Charges/Coding Visit Charges Inpatient E&M: 00769 Subs Hosp L3
[2023-03-07] MEDS: 0.9% Saline Lock 10 ML Syringe IV (08:58)
[2023-03-07] MEDS: Azithromycin 500 MG in Dextrose 5%-Water (250mL Bag) 250 ML 250 MG IV (08:58)
[2023-03-07] MEDS: guaiFENesin/D-Methorphan TAB.SR.12H 2 TABLET PO ×2 (08:59→20:26)
[2023-03-07] MEDS: APIXABAN 5 MG TABLET PO ×2 (08:59→20:24)
[2023-03-07] MEDS: Metoprolol Tartrate 25 MG Tablet 12.5 MG PO ×2 (09:00→20:25)
[2023-03-07] MEDS: Ceftriaxone 2 GM in 0.9% Normal Saline (50mL MB+) 50 ML IV (10:10)
[2023-03-08] VITALS (9 sets, daily range): BP systolic 120–135; BP diastolic 72–97; PULSE 52–117; RESP 14–18; TEMP 36.3–36.8; O2SAT 93–96
[2023-03-08 06:45] LABS: Absolute Lymphocyte Count 0.58 X10^3/uL (0.83-4.51); Absolute Neutrophil Count 7.7 X10^3/uL (2.0-7.7); Basophil# 0.04 X10^3/uL; Basophil% 0.5 % (0-1); Eosinophil# 0.03 X10^3/uL; Eosinophils% 0.3 % (0-5); Hematocrit 36.8 % (40-54); Hemoglobin 12.5 g/dL (13.0-16.5); Lymphocyte # 0.58 X10^3/ul (0.83-4.51); Lymphocyte % 6.6 % (19-41); Mean Corpuscular Hgb 32.1 pg (27.0-32.0); Mean Corpuscular Volume 94.4 fL (80-94); Mean Platelet Vol. 11.1 fl (6.2-12.0); Monocyte# 0.46 X10^3/uL; Monocyte% 5.2 % (0-10); NRBC Flagged by Analyzer 0 % (0-5); Neutrophil # 7.66 X10^3/uL (2.7-7.7); Neutrophil % 87.2 % (47-70); POSITIVE DIFFERENTIAL YES; POSITIVE MORPHOLOGY YES; Platelet Count 151 K/mm3 (150-450); RBC Distribution Width SD 48.8 fl (35.1-43.9); White Blood Count 8.8 K/mm3 (4.4-11.0)
[2023-03-08 07:02] LABS: Differential Indicated SCAN CRITERIA MET
[2023-03-08 07:06] LABS: Anion Gap 8 (5-15); BUN 23 mg/dL (7-18); BUN/Creat Ratio 29.5 RATIO (10-20); Calcium,Total 8.5 mg/dL (8.5-10.1); Chloride 108 mmol/L (98-107); Creatinine, Serum 0.78 mg/dL (0.70-1.30); EST Glomerular Filtration Rate 102 mL/min (>60); Est Glom Filt Rate - Afr Amer 123 mL/min (>60); Estimated Creatinine Clearance 65.74 ml/min; Glucose 91 mg/dL (74-106); Potassium 3.8 mmol/L (3.5-5.1); Sodium Level 138 mmol/L (136-145)
[2023-03-08 07:56] LABS: Differential Comment SCANNED
--- NOTE | 2023-03-08 08:11 | PCM.PN.HOSP ---
Reason for Visit Reason for Visit: Diagnoses Unspecified atrial fibrillation (03/06/23) Pneumonia, unspecified organism (03/06/23) Objective Data Objective Data Vital Signs: Vital Signs Temp Pulse Resp BP Pulse Ox O2 Del Method O2 Flow Rate 97.9 F 117 H 16 134/97 H 96 Room Air 3 03/08/23 06:13 03/08/23 06:13 03/08/23 06:13 03/08/23 06:13 03/08/23 06:13 03/08/23 06:13 03/07/23 13:52 Oxygen Flow Rate (L/min) 3 Oxygen Delivery Method Room Air Weight: 188 lb 14.978 oz Body Mass Index (BMI) 25.6 Intake & Output: Intake and Output for Last 24 Hours 03/06/23 03/07/23 03/08/23 23:59 23:59 23:59 Intake Total 3745 / 3745 2705 / 2705 60 / 60 Output Total 50 / 50 Balance 3695 / 3695 2705 / 2705 60 / 60 Lab / Micro Data 03/08/23 05:27 03/08/23 05:27 Labs: Laboratory Results - last 24 hr 03/08/23 05:27: WBC 8.8, RBC 3.90 L, Hgb 12.5 L, Hct 36.8 L, MCV 94.4 H, MCH 32.1 H, MCHC 34.0, RDW Std Deviation 48.8 H, RDW Coeff of Alexy 14.0, Plt Count 151, MPV 11.1, Immature Gran % (Auto) 0.200, Neut % (Auto) 87.2 H, Lymph % (Auto) 6.6 L, [place] % (Auto) 5.2, Eos % (Auto) 0.3, Baso % (Auto) 0.5, Absolute Neuts (auto) 7.7, Absolute Lymphs (auto) 0.58 L, Nucleated RBC % 0, Differential Comment SCANNED, Sodium 138, Potassium 3.8, Chloride 108 H, Carbon Dioxide 22.0, Anion Gap 8, BUN 23 H, Creatinine 0.78, Estim Creat Clear Calc 65.74, Est GFR (MDRD) Af Amer 123, Est GFR (MDRD) Non-Af 102, BUN/Creatinine Ratio 29.5 H, Glucose 91, Calcium 8.5 Micro: Microbiology 03/06/23 08:25 Blood Culture (Wb) - Anticubital Left Blood Culture - Preliminary 03/06/23 08:12 Blood Culture (Wb) - Right Forearm Blood Culture - Preliminary 03/07/23 03:00 Urine, Clean Catch Legionella Antigen - Final 03/07/23 03:00 Urine, Clean Catch Streptococcus pneumoniae Antigen (M - Final 03/06/23 07:37 Mucosa - Nose SARS-CoV-2, Influenza & RSV (PCR) - Final Physical Exam Narrative Patient is afebrile since admission. Blood pressure is a stabilized 116/78. Sinus rhythm but heart rate fluctuates between 50-217. Currently in the 90s. His shortness of breath is much improved. No hypoxia no tachypnea. No respiratory distress. Physical exam General: Alert, Oriented x3, Cooperative HEENT: Atraumatic, PERRLA, EOMI, Normocephalic Oral: Oral mucosa dry. No Gingival or Mucosal Lesions/ Ulcerations Neck: Supple, No JVD, Negative Carotid Bruits Lungs: Air entry diminished in bilateral lung bases. Mild coarse crepitation on right lung base. No wheezing. Cardiovascular: Still in A-fib. Normal S1, Normal S2, No murmurs Abdomen: Bowel Sounds Present, Soft, Non Tender, Non-Distended : No renal angle tenderness. No suprapubic tenderness. Extremities: No edema, Capillary Refill Less than 3 Seconds Skin: No rashes, No breakdown Musculoskeletal: No Tenderness to Palpation of Joints or Extremities Neurological: Cranial nerves II-XII grossly intact, DTR 2+/4. No acute focal neurological deficit. Psych/Mental Status: Flat affect. Assessment & Plan Assessment/Plan (1) Atrial fibrillation, new onset: (2) Community acquired pneumonia: QUALIFIERS: Laterality: right Lung location: middle lobe of lung Qualified Code(s): J18.9 - Pneumonia, unspecified organism PLAN: Plan This is 77-year-old gentleman being admitted for right-sided pneumonia and new onset A-fib RVR 1. Right upper/middle lobe community-acquired pneumonia with tachypnea and mild hypoxia complicated into GNR bacteremia: Patient is being admitted in PCU. Patient is treated with IV fluid. All the patient mild one-time transient hypotension, BP 89/60. Patient soon recovered and does not meet the criteria for sepsis. Pneumonia workup including blood cultures x 2 ordered. Procalcitonin is high at 12.77. Patient has mild leukopenia, mild thrombocytopenia neutrophilia, lymphopenia. Lactic acid 2.8. Patient is started on IV ceftriaxone and azithromycin, Mucinex DM, incentive spirometry and Pep. 03/07: Lactic acid was elevated 2.8, 2.9 and then improved to 2.2 after IV fluid resuscitation and antibiotic treatment. Blood pressure monitoring did not show drop below 90 mmHg after admission. Patient also clinically improving. Normal WBC count although came with mild leukopenia. Neutrophils 78%, bands 6%, lymphocytes 6%, lymphopenia. Metamyelocytes 4%. Preliminary aerobic blood culture showing gram-negative coccobacilli probably haemophilus influenza. Full identification and sensitivity pending. 03/08: was concerned that whether he is very serious or not able to make it. Discussed with patient and his and empathy given. Clinically patient is improving therefore we will continue same IV antibiotic. Blood culture preliminary still shows [place] bacillus gram-negative. Will wait for final culture report. 2. New onset A-fib with RVR most likely precipitated by pneumonia: Patient denies prior history of A-fib and I think it might be transient, preceded by respiratory infection. Will resuscitate with IV fluid as RVR might be due to hypovolemia or infection. Eliquis 5 mg twice daily. If heart rate is still high despite adequate IV fluid resuscitation, will start on metoprolol 12.5 mg twice daily. 03/07: Patient is still in A-fib although heart rate getting better, 90s. BP 160s/78. Continue low-dose metoprolol and Eliquis. 03/08:Will increase metoprolol to 25 mg twice daily continue Eliquis. Fluctuation in heart rate. 3. BPH:Patient not on any medication and denies any acute lower urinary tract symptoms including dysuria. On vitamin and nutritional supplement at home. Continue vitamin D3. DVT prophylaxis: Eliquis 5 mg twice daily admission above. Living will/advanced directive/end of life care: Patient does have living will or advanced directive. His near the bedside is power of supervisor concrete stone fabricating for health. After discussion of benefits/risks procedures involved with full code, DNR CC arrest and DNR CC, the patient and his opted for full code for now. Patient does want artificial life support including intubation, tube feed, ventilator and/chest compression, central venous catheter, vasopressor and DC shock if needed Charges/Coding Visit Charges Inpatient E&M: 67490 Subs Hosp L2
[2023-03-08] MEDS: Ceftriaxone 2 GM in 0.9% Normal Saline (50mL MB+) 50 ML IV (08:59)
[2023-03-08] MEDS: APIXABAN 5 MG TABLET PO ×2 (09:02→21:25)
[2023-03-08] MEDS: Metoprolol Tartrate 25 MG Tablet 12.5 MG PO (09:02)
[2023-03-08] MEDS: guaiFENesin/D-Methorphan TAB.SR.12H 2 TABLET PO ×2 (09:07→21:26)
[2023-03-08] MEDS: Azithromycin 500 MG in Dextrose 5%-Water (250mL Bag) 250 ML 250 MG IV (09:07)
[2023-03-08] MEDS: 0.9% Saline Lock 10 ML Syringe IV (09:07)
--- NOTE | 2023-03-08 10:59 | DCINST_ITS ---
Discharge Instructions Diet Discharge Diet: No restrictions Activity Discharge Activity: Return to Normal Activity Weight Bearing Status: Weight bearing as tolerated Dressing / Incision Call your doctor if you observe: Fever of 101 or Higher, Coldness, Increased Pain, Numbness or Tingling, Change in Color, Inability to urinate, Inability to have a bowel movement, Shortness of breath, Dizziness, Fainting spells, Swelling in the ankles, Chest pain, Prolonged hiccupping, Increased palpitations (irregular heartbeat) and Calf discomfort Follow Up Care When: IN 2 WEEKS Test Results: Test results from this visit will be discussed in further detail at your follow- up appointment, if applicable. Discharge Plan Admission Admit Date/Time: 03/06/23 09:03 Primary Reason for Your Visit: COVID bronchitis. Attending Provider: Jassi Evangelista Primary Care Provider: Yonatan Sanchez Discharge Orders/Prescriptions Prescriptions: No Action coenzyme Q10 [Co Q-10] 10 mg capsule 10 mg PO ONCE glucosamine-chondroitin [Osteo Bi-Flex] 250-200 mg tablet 2 tab PO QPC cholecalciferol (vitamin D3) 25 mcg (1,000 unit) capsule 25 mcg PO DAILY Patient Comments: pt only takes for 5 days week lysine [L-Lysine] 500 mg tablet 500 mg PO DAILY Referrals / Follow Up: Yonatan Sanchez MD [Primary Care Provider] -
[2023-03-08] MEDS: Metoprolol Tartrate 25 MG Tablet PO (21:26)
[2023-03-09 02:00] VITALS: BP 129/96; PULSE 91; RESP 18; TEMP 36.7; O2SAT 94
[2023-03-09 02:48] VITALS: BMI 25.6
[2023-03-09 07:07] VITALS: O2SAT 96
[2023-03-09 07:10] LABS: Absolute Lymphocyte Count 0.67 X10^3/uL (0.83-4.51); Absolute Neutrophil Count 4.9 X10^3/uL (2.0-7.7); Basophil# 0.04 X10^3/uL; Basophil% 0.6 % (0-1); Eosinophil# 0.09 X10^3/uL; Eosinophils% 1.4 % (0-5); Hematocrit 37.2 % (40-54); Hemoglobin 12.5 g/dL (13.0-16.5); Lymphocyte # 0.67 X10^3/ul (0.83-4.51); Lymphocyte % 10.5 % (19-41); Mean Corp Hgb Conc 33.6 g/dL (32-36); Mean Corpuscular Hgb 31.7 pg (27.0-32.0); Mean Corpuscular Volume 94.4 fL (80-94); Mean Platelet Vol. 10.6 fl (6.2-12.0); Monocyte# 0.64 X10^3/uL; NRBC Flagged by Analyzer 0 % (0-5); Neutrophil # 4.87 X10^3/uL (2.7-7.7); Neutrophil % 76.6 % (47-70); Platelet Count 163 K/mm3 (150-450); RBC Distribution Width CV 13.8 % (11.6-14.6); RBC Distribution Width SD 47.9 fl (35.1-43.9); Red Blood Count 3.94 M/mm3 (4.6-6.2); White Blood Count 6.4 K/mm3 (4.4-11.0)
[2023-03-09 07:28] LABS: Anion Gap 4 (5-15); BUN 16 mg/dL (7-18); BUN/Creat Ratio 19.9 RATIO (10-20); Calcium,Total 8.7 mg/dL (8.5-10.1); Chloride 108 mmol/L (98-107); EST Glomerular Filtration Rate 98 mL/min (>60); Est Glom Filt Rate - Afr Amer 119 mL/min (>60); Estimated Creatinine Clearance 82.18 ml/min; Glucose 113 mg/dL (74-106); Potassium 3.5 mmol/L (3.5-5.1); Sodium Level 138 mmol/L (136-145)
--- NOTE | 2023-03-09 07:55 | PCM.DC ---
Discharge Instructions Diet Discharge Diet: No restrictions Activity Discharge Activity: Return to Normal Activity Weight Bearing Status: Weight bearing as tolerated Dressing / Incision Call your doctor if you observe: Fever of 101 or Higher, Coldness, Increased Pain, Numbness or Tingling, Change in Color, Inability to urinate, Inability to have a bowel movement, Shortness of breath, Dizziness, Fainting spells, Swelling in the ankles, Chest pain, Prolonged hiccupping, Increased palpitations (irregular heartbeat) and Calf discomfort Follow Up Care When: IN 2 WEEKS Test Results: Test results from this visit will be discussed in further detail at your follow-up appointment, if applicable. Discharge Plan Admission Admit Date/Time: 03/06/23 09:03 Primary Reason for Your Visit: COVID bronchitis. Attending Provider: Jassi Evangelista Primary Care Provider: Yonatan Sanchez Instructions Additional Instructions / Restrictions: Advised follow-up with his regular [facility] pediatric speech therapist Dr. Young and 2D echo in 2 weeks. Patient was advised that he needs at least 3 weeks of oral anticoagulation before cardioversion is attempted. Discharge Orders/Prescriptions Prescriptions: New metoprolol tartrate 25 mg Tablet 25 mg PO BID 30 Days Qty: 60 1RF Eliquis 5 mg Tablet 5 mg PO BID 30 Days Qty: 60 1RF dextromethorphan-guaifenesin [Mucinex DM] 60-1,200 mg tablet extended release 12 hr 1 tab PO Q12H 7 Days Qty: 14 0RF levofloxacin 500 mg tablet 500 mg PO DAILY 5 Days Qty: 5 0RF Continued coenzyme Q10 [Co Q-10] 10 mg capsule 10 mg PO ONCE glucosamine-chondroitin [Osteo Bi-Flex] 250-200 mg tablet 2 tab PO QPC cholecalciferol (vitamin D3) 25 mcg (1,000 unit) capsule 25 mcg PO DAILY Patient Comments: pt only takes for 5 days week lysine [L-Lysine] 500 mg tablet 500 mg PO DAILY Referrals / Follow Up: Yonatan Sanchez MD [Primary Care Provider] - Within 1 Week Disposition Disposition (needs filled in before D/C Order can be placed): Home, Self Care
[2023-03-09 08:28] VITALS: BP 122/74; PULSE 82; RESP 14; TEMP 36.6; O2SAT 95
[2023-03-09 08:33] VITALS: PULSE 82
[2023-03-09] MEDS: guaiFENesin/D-Methorphan TAB.SR.12H 2 TABLET PO (08:33)
[2023-03-09] MEDS: Ceftriaxone 2 GM in 0.9% Normal Saline (50mL MB+) 50 ML IV (08:33)
[2023-03-09] MEDS: Metoprolol Tartrate 25 MG Tablet PO (08:33)
[2023-03-09] MEDS: Azithromycin 500 MG in Dextrose 5%-Water (250mL Bag) 250 ML 250 MG IV (08:34)
[2023-03-09] MEDS: APIXABAN 5 MG TABLET PO (08:34)
--- NOTE | 2023-03-09 10:38 | PCM.DC.SUM ---
Providers Date of Admission: 03/06/23 Date of Discharge: 03/09/23 Primary Care Physician: Dr. Yonatan Sanchez MD Reason For Visit: PNEUMONIA, AFIB RVR Diagnosis Discharge Diagnosis (1) Atrial fibrillation, new onset: Status: Acute Code(s): I48.91 - Unspecified atrial fibrillation (2) Community acquired pneumonia: Status: Acute Code(s): J18.9 - Pneumonia, unspecified organism Qualifiers: Laterality: right Lung location: middle lobe of lung Qualified Code(s): J18.9 - Pneumonia, unspecified organism Plan This is 77-year-old gentleman being admitted for right-sided pneumonia and new onset A-fib RVR 1. Right upper/middle lobe community-acquired pneumonia with tachypnea and mild hypoxia complicated into GNR bacteremia: Patient is being admitted in PCU. Patient is treated with IV fluid. All the patient mild one-time transient hypotension, BP 89/60. Patient soon recovered and does not meet the criteria for sepsis. Pneumonia workup including blood cultures x 2 ordered. Procalcitonin is high at 12.77. Patient has mild leukopenia, mild thrombocytopenia neutrophilia, lymphopenia. Lactic acid 2.8. Patient is started on IV ceftriaxone and azithromycin, Mucinex DM, incentive spirometry and Pep. 03/07: Lactic acid was elevated 2.8, 2.9 and then improved to 2.2 after IV fluid resuscitation and antibiotic treatment. Blood pressure monitoring did not show drop below 90 mmHg after admission. Patient also clinically improving. Normal WBC count although came with mild leukopenia. Neutrophils 78%, bands 6%, lymphocytes 6%, lymphopenia. Metamyelocytes 4%. Preliminary aerobic blood culture showing gram-negative coccobacilli probably haemophilus influenza. Full identification and sensitivity pending. 03/08: was concerned that whether he is very serious or not able to make it. Discussed with patient and his and empathy given. Clinically patient is improving therefore we will continue same IV antibiotic. Blood culture preliminary still shows [place] bacillus gram-negative. Will wait for final culture report. 03/09: Patient is afebrile. Home oxygen qualification test ordered. On room air no tachypnea heart rate and blood pressure controlled. Patient is discharged on 5 days of Levaquin 500 mg daily after discussion with ID Dr. Dyllan Mattson.. He had 4 days of IV ceftriaxone and Zithromax. 2. New onset A-fib with RVR most likely precipitated by pneumonia: Patient denies prior history of A-fib and I think it might be transient, preceded by respiratory infection. Will resuscitate with IV fluid as RVR might be due to hypovolemia or infection. Eliquis 5 mg twice daily. If heart rate is still high despite adequate IV fluid resuscitation, will start on metoprolol 12.5 mg twice daily. 03/07: Patient is still in A-fib although heart rate getting better, 90s. BP 160s/78. Continue low-dose metoprolol and Eliquis. 03/08:Will increase metoprolol to 25 mg twice daily continue Eliquis. Fluctuation in heart rate. 03/09: Patient heart rate is controlled but is still in A-fib. Prescription sent for metoprolol and Eliquis. Follow-up with [facility] Dr. Young and 2D echo in 2 weeks. Procedure for electrical cardioversion for A-fib discussed with the patient that he will need at least 3 weeks of anticoagulation before the attempt of cardioversion. 3. BPH:Patient not on any medication and denies any acute lower urinary tract symptoms including dysuria. On vitamin and nutritional supplement at home. Continue vitamin D3. DVT prophylaxis: Eliquis 5 mg twice daily admission above. Discharge medication reconciliation done. Discharge follow-up instructions completed. Discharge process discussed with the patient and all questions were answered to patient's satisfaction. Follow with PCP in 1 to 2 weeks Total time spent, exact 35 minutes on discharge meds reconciliation, examination, coordination of care with nurses and ancillary staff, review of imaging and blood test and discussion with the patient on follow-up instructions. Living will/advanced directive/end of life care: Patient does have living will or advanced directive. His near the bedside is power of [place] attorney for health. After discussion of benefits/risks procedures involved with full code, DNR CC arrest and DNR CC, the patient and his opted for full code for now. Patient does want artificial life support including intubation, tube feed, ventilator and/chest compression, central venous catheter, vasopressor and DC shock if needed Medications at Discharge Home Medications cholecalciferol (vitamin D3) 25 mcg (1,000 unit) capsule 25 mcg PO DAILY vitamin 09/02/21 coenzyme Q10 10 mg capsule (Co Q-10) 10 mg PO ONCE supplement 09/02/21 glucosamine-chondroitin 250 mg-200 mg tablet (Osteo Bi-Flex) 2 tab PO QPC supplement 09/02/21 lysine 500 mg tablet (L-Lysine) 500 mg PO DAILY supplement 12/01/22 apixaban 5 mg tablet (Eliquis) 5 mg PO BID 30 days #60 tabs 03/09/23 dextromethorphan-guaifenesin ER 60 mg-1,200 mg tab,extend release,12hr (Mucinex DM) 1 tab PO Q12H 7 days #14 tabs 03/09/23 levofloxacin 500 mg tablet 500 mg PO DAILY 5 days #5 tabs 03/09/23 metoprolol tartrate 25 mg tablet 25 mg PO BID 30 days #60 tabs 03/09/23 Physical Exam Narrative Patient is afebrile since admission. Blood pressure is 122/74. Patient is in A-fib. Heart rate in 80s. No respiratory distress. Physical exam General: Alert, Oriented x3, Cooperative HEENT: Atraumatic, PERRLA, EOMI, Normocephalic Oral: Oral mucosa dry. No Gingival or Mucosal Lesions/ Ulcerations Neck: Supple, No JVD, Negative Carotid Bruits Lungs: Air entry diminished in bilateral lung bases. No tachypnea or hypoxia. Mild coarse crepitation on right lung base. No wheezing. Cardiovascular: Still in A-fib. Normal S1, Normal S2, No murmurs Abdomen: Bowel Sounds Present, Soft, Non Tender, Non-Distended : No renal angle tenderness. No suprapubic tenderness. Extremities: No edema, Capillary Refill Less than 3 Seconds Skin: No rashes, No breakdown Musculoskeletal: No Tenderness to Palpation of Joints or Extremities Neurological: Cranial nerves II-XII grossly intact, DTR 2+/4. No acute focal neurological deficit. Psych/Mental Status: Flat affect. Weight / BMI Weight Weight: 188 lb 11.451 oz Body Mass Index (BMI) 25.6 ABG / Lab / Microbiology Data 03/09/23 06:50 03/09/23 06:50 Laboratory: Laboratory Results - last 24 hr 03/09/23 06:50: WBC 6.4, RBC 3.94 L, Hgb 12.5 L, Hct 37.2 L, MCV 94.4 H, MCH 31.7, MCHC 33.6, RDW Std Deviation 47.9 H, RDW Coeff of Alexy 13.8, Plt Count 163, MPV 10.6, Immature Gran % (Auto) 0.900, Neut % (Auto) 76.6 H, Lymph % (Auto) 10.5 L, [place] % (Auto) 10.0, Eos % (Auto) 1.4, Baso % (Auto) 0.6, Absolute Neuts (auto) 4.9, Absolute Lymphs (auto) 0.67 L, Nucleated RBC % 0, Sodium 138, Potassium 3.5, Chloride 108 H, Carbon Dioxide 26.0, Anion Gap 4 L, BUN 16, Creatinine 0.80, Estim Creat Clear Calc 82.18, Est GFR (MDRD) Af Amer 119, Est GFR (MDRD) Non-Af 98, BUN/Creatinine Ratio 19.9, Glucose 113 H, Calcium 8.7 Microbiology: Microbiology 03/08/23 07:45 Sputum, Expectorated/Coughed Gram Stain - Final 03/08/23 07:45 Sputum, Expectorated/Coughed Respiratory Culture - Preliminary Appears to be normal respiratory jose. Further studies to follow. 03/06/23 08:25 Blood Culture (Wb) - Anticubital Left Blood Culture - Final Haemophilus influenzae 03/06/23 08:12 Blood Culture (Wb) - Right Forearm Blood Culture - Final Haemophilus influenzae 03/07/23 03:00 Urine, Clean Catch Legionella Antigen - Final 03/07/23 03:00 Urine, Clean Catch Streptococcus pneumoniae Antigen (M - Final 03/06/23 07:37 Mucosa - Nose SARS-CoV-2, Influenza & RSV (PCR) - Final D/C Instructions Discharge Diet: No restrictions Weight Bearing Status: Weight bearing as tolerated Call your doctor if you observe: Fever of 101 or Higher, Coldness, Increased Pain, Numbness or Tingling, Change in Color, Inability to urinate, Inability to have a bowel movement, Shortness of breath, Dizziness, Fainting spells, Swelling in the ankles, Chest pain, Prolonged hiccupping, Increased palpitations (irregular heartbeat) and Calf discomfort When: IN 2 WEEKS Meaningful Use Info Meaningful Use Diagnoses (Choose all that apply): None applicable Discharge Plan Admission Admit Date/Time: 03/06/23 09:03 Primary Reason for Your Visit: COVID bronchitis. 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 Patient was advised that he needs at least 3 weeks of oral anticoagulation before cardioversion is attempted. Discharge Orders/Prescriptions Prescriptions: New metoprolol tartrate 25 mg Tablet 25 mg PO BID 30 Days Qty: 60 1RF Eliquis 5 mg Tablet 5 mg PO BID 30 Days Qty: 60 1RF dextromethorphan-guaifenesin [Mucinex DM] 60-1,200 mg tablet extended release 12 hr 1 tab PO Q12H 7 Days Qty: 14 0RF levofloxacin 500 mg tablet 500 mg PO DAILY 5 Days Qty: 5 0RF Continued coenzyme Q10 [Co Q-10] 10 mg capsule 10 mg PO ONCE glucosamine-chondroitin [Osteo Bi-Flex] 250-200 mg tablet 2 tab PO QPC cholecalciferol (vitamin D3) 25 mcg (1,000 unit) capsule 25 mcg PO DAILY Patient Comments: pt only takes for 5 days week lysine [L-Lysine] 500 mg tablet 500 mg PO DAILY Referrals / Follow Up: Yonatan Sanchez MD [Primary Care Provider] - Within 1 Week Disposition Disposition (needs filled in before D/C Order can be placed): Home, Self Care Charges/Coding Visit Charges Inpatient E&M: 99601 Disch Hosp >30min
--- NOTE | 2023-03-09 11:05 | CASEMGMT ---
Patient has order for discharge. Patient discharging on Eliquis. ZAC CM called Caridad Clark regarding Eliquis copay, copay is $234.10. RN CM in to update patient. Patient states he has deductible and he is able to afford copay, declined savings card. Patient denies needs at discharge. Patient had no further questions or concerns at this time.
[2023-03-09 11:30] VITALS: O2SAT 97; O2SAT 99
[2023-03-09 13:00] VITALS: BP 117/80; PULSE 82; RESP 16; TEMP 36.4; O2SAT 97
[2023-03-09 13:56] LABS: Pathologist Review Reviewed
[2023-03-10 10:19] LABS: Pathologist Review Reviewed
--- NOTE | 2023-03-13 10:35 | CASEMGMT ---
Pt called in and was questioning what pt was treated for in the hospital. Pt got on the phone and gave permission for ZAC SANTOS to speak to . Made pt aware pt was treated for pneumonia and positive blood cultures. She read off of her dc papers the organism. She is aware pt was treated with antibiotics. She denied further needs.
== END 2023-03-09 13:15 | disposition home or self-care (01) | DRG 194 ==
LOC: ED 09:16 → PCU 10:59
PROVIDERS: Admitting Provider Internal Medicine; Emergency Provider Emergency Medicine; PCP Internal Medicine; Visit Provider Internal Medicine
DX: J18.9 Pneumonia, unspecified organism (principal); R78.81 Bacteremia; I48.91 Unspecified atrial fibrillation; B96.3 Hemophilus influenzae [H. influenzae] as the cause of diseases classified elsewhere; R03.1 Nonspecific low blood-pressure reading; R09.02 Hypoxemia; Z79.01 Long term (current) use of anticoagulants; Z79.899 Other long term (current) drug therapy
CPT/HCPCS: 36415; 71045; 80048; 80076; 83605; 83735; 84100; 84145; 84443; 84484; 85025; 85610; 85730; 87040; 87070; 87077; 87205; 87449; 87631; 93005; 94668; 94762; 99285; J7120; A4216

== ENCOUNTER → 2023-05-12 | Outpatient (CLI) | payer MEDICARE, OTHER, SELFPAY ==
[2023-05-12 16:18] LABS: Anion Gap 1 (5-15); BUN 17 mg/dL (7-18); BUN/Creat Ratio 19.1 RATIO (10-20); Calcium,Total 9.1 mg/dL (8.5-10.1); Chloride 109 mmol/L (98-107); Creatinine, Serum 0.89 mg/dL (0.70-1.30); EST Glomerular Filtration Rate 88 mL/min (>60); Est Glom Filt Rate - Afr Amer 106 mL/min (>60); Glucose 93 mg/dL (74-106); Potassium 4.1 mmol/L (3.5-5.1); Sodium Level 139 mmol/L (136-145)
--- OUTSIDE RECORDS SUMMARY | 2023-05-12 19:24 | XMS RPT_ITS | CCD ---
Author Name Unknown Address [address] [place] [address] Organization [facility] Care Team Providers Care [employer] Name Role Phone Yonatan Sagastume Unavailable Unavailable Alvaro, Rk B Unavailable Unavailable Unknown, Referring Provider Unavailable Unav ailable Alvaro, Rk Unavailable Unavailable Daniel VANEGAS, Yonatan Pompa Primary Care Provider [phone] Daniel VANEGAS, Yonatan Pompa Primary Care Provider [phone] Daniel VANEGAS, Yonatan Pompa Primary Care Provider [phone] JAIR LYNN Attending Unavailab le YONATAN SAGASTUME Primary Care Unavailable YONATAN SAGASTUME Primary Care Unavailable SHRADDHA LONDONO Attending Unavailable YONATAN SAGASTUME Referring Unavailable YONATAN SAGASTUME Primary Care Unavailable MADDY MCGOWAN Referring Unavailable DANIEL, YONATAN Pompa Primary Care Unavailable YONATAN SAGASTUME Primary Care Unavailable YONATAN SAGASTUME Attending Unavailable YONATAN SAGASTUME Primary Care Unavailable YONATAN SAGASTUME Referring Unavailable YONATAN SAGASTUME Primary Care Unavailable YONATAN SAGASTUME Referring Unavailable YONATAN SAGASTUME Primary Care Unavailable YONATAN SAGASTUME Primary Care Unavailable YONATAN SAGASTUME Attending Unavailable DANIEL, YONATAN Pompa Primary Care Unavailable YONATAN SAGASTUME Referring Unavailable DANIEL, YONATAN Pompa Primary Care Unavailable YONATAN SAGASTUME Referring Unavailable YONATAN SAGASTUME Primary Care Unavailable SHRADDHA LONDONO Referring Unavailable DANIEL, YONATAN Pompa Primary Care Unavailable DANIEL, YONATAN Pompa Attending Unavailable DANIEL, YONATAN Pompa Primary Care Unavailable DANIEL, YONATAN Pompa Referring Unavailable DANIEL, YONATAN Pompa Primary Care Unavailable YONATAN SAGASTUME Attending Unavailable SAGASTUME, JAXSON Primary Care Unavailable SAGASTUME, JAXSON Referring Unavailable SAGASTUME, JAXSON Primary Care Unavailable SAGASTUME, JAXSON Attending Unavailable SAGASTUME, JAXSON Referring Unavailable SAGASTUME, JAXSON Primary Care Unavailable SAGASTUME, JAXSON Attending Unavailable SAGASTUME, JAXSON Primary Care Unavailable VIVI ESTRADA Attending Unavailable SAGASTUME, JAXSON Referring Unavailable SAGASTUME, JAXSON Primary Care Unavailable SAGASTUME, JAXSON Primary Care Unavailable SAGASTUME, JAXSON Referring Unavailable MADDY MCGOWAN Attending Unavailable SAGASTUME, JAXSON Primary Care Unavailable SAGASTUME, JAXSON Primary Care Unavailable SAGASTUME, JAXSON Attending Unavailable SAGASTUME, JAXSON Primary Care Unavailable SAGASTUME, YONATAN Pompa Referring Unavailable Medications Current Medications Medication Drug Class(es) Dates Sig (Normalized) Sig (Original) apixaban 5 mg oral tablet (4 sources) Factor Xa Inhibitor Start: 03-26-2023 End: 03-25-2024 take 1 tablet by mouth twice daily ELIQUIS 5 mg tab(s) Take 1 tablet by mouth two times a day. 180 tablet 3 03/26/2023 03/25/2024 Active Completed/Discontinued Medications Medication Drug Class(es) Dates Sig (Normalized) Sig (Original) [id number] 200 actuat albuterol 0.09 mg/actuat metered dose inhaler (7 sources) beta2-Adrenergic Agonist Start: 02-15-2023 take 2 [...] Translations: [History of squamous cell carcinoma] Episodic Cardiac dysrhythmias (6 sources) Paroxysmal atrial fibrillation; Translations: [Paroxysmal atrial fibrillation] Onset: 03-16-2023 03-16-2023 Chronic Deficiency and other anemia (1 source) Anemia, unspecified; Translations: [Anemia, unspecified type] Onset: 03-30-2023 Episodic Diabetes mellitus without complication (1 source) Impaired fasting glycemia; Translations: [Impaired fasting glucose] Episodic Disorders of lipid metabolism (20 sources) Hypercholesterolemi a; Translations: [Pure hypercholesterolemi a, unspecified] Onset: 03-31-2018 03-31-2018 Chronic Esophageal disorders (9 sources) Gastro-esophageal reflux disease with esophagitis; Translations: [GERD with esophagitis] Onset: 02-04-2016 02-04-2016 Chronic Essential hypertension (1 source) Essential (primary) hypertension; [...] [Subacute cough] Episodic Other lower respiratory disease (1 source) Disorder of lung; Translations: [Other disorders of lung] 05-11-2023 Episodic Other lower respiratory disease (1 source) H/O: pneumonia; Translations: [Personal history of pneumonia (recurrent)] 05-11-2023 Episodic Pneumonia (except that caused by tuberculosis or sexually transmitted disease) (2 sources) Pneumonia, unspecified organism; Translations: [Pneumonia due to Hemophilus influenzae] Onset: 03-30-2023 Episodic Past or Other Problems Problem Classification Problem Date Documented Da te Episodic/Chronic Nonspecific chest pain (1 source) Other chest pain; Translations: [Atypical chest pain] Onset: 06-05-2022 Episodic Other and unspecified benign neoplasm (6 sources) Benign neoplasm of colon; Translations: [Benign neoplasm of colon, unspecified] Onset: 02-04-2006 02-04-2006 Episodic Other lower respiratory disease (15 sources) Chronic cough; Translations: [Chronic cough] Onset: 06-01-2022 Episodic Other non-epithelial cancer of skin (20 sources) History of malignant basal cell neoplasm of skin; Translations: [Personal history of other malignant neoplasm of skin] Onset: 07-26-2017 07-26-2017 Episodic Other screening for suspected conditions (not mental disorders or infectious disease) (1 source) Encounter for screening for malignant neoplasm of prostate; Translations: [Screening for prostate cancer] Onset: 12-08-2022 Episodic Other skin disorders (19 sources) Actinic keratosis; Translations: [Actinic keratosis] Onset: 05-28-2016 05-28-2016 Episodic Residual codes; unclassified (10 sources) Persistent insomnia; Translations: [Insomnia, unspecified] Onset: 10-29-2022 10-29-2022 Episodic NEGATED: Highlighted row has not occurred!Residual codes; unclassified (5 sources) Disease Episodic Results Test Name Value Interpretation Reference Range Facil ity Vital Signs Date Time Vital Sign Value Performing Clinician Facility 05-11-2023 08:06-0500 Body temperature 98.1 [degF] Vivi Estrada MD Work Phone: [facility] 05-11-2023 08:06-0500 Body weight 82.1 kg Vivi Estrada MD Work Phone: [facility] 05-11-2023 08:06-0500 Diastolic blood pressure 78 mm[Hg] Vivi Estrada MD Work Phone: [facility] 05-11-2023 08:06-0500 Heart rate 64 /min Vivi Estrada MD Work Phone: [facility] 05-11-2023 08:06-0500 Respiratory rate 17 /min Vivi Estrada MD Work Phone: [facility] 05-11-2023 08:06-0500 SaO2% (BldA) [Mass fraction] 94 % Vivi Estrada MD Work Phone: [facility] 05-11-2023 08:06-0500 Systolic blood pressure 122 mm[Hg] Vivi Estrada MD Work Phone: [facility] 02-17-2023 07:56-0500 Body height 178.3 cm Pulm Wstr Work Phone: [facility] 02-17-2023 07:56-0500 Body weight 83.46 kg Pulm Wstr Work Phone: [facility] 02-17-2023 07:56-0500 Heart rate 63 /min Pulm Wstr Work Phone: [facility] 02-17-2023 07:56-0500 Respiratory rate 14 /min Pulm Wstr Work Phone: [facility] 02-17-2023 07:56-0500 SaO2% (BldA) [Mass fraction] 95 % Pulm Wstr Work Phone: [facility] 02-15-2023 14:19-0500 Body temperature 98.29 [degF] Yonatan Sagastume MD Work Phone: [facility] 02-15-2023 14:19-0500 Body weight 83.46 kg Yonatan Sagastume MD Work Phone: [facility] 02-15-2023 14:19-0500 Diastolic blood pressure 74 mm[Hg] Yonatan Sagastume MD Work Phone: [facility] 02-15-2023 14:19-0500 Heart rate 68 /min Yonatan Sagastume MD Work Phone: [facility] 02-15-2023 14:19-0500 SaO2% (BldA) [Mass fraction] 96 % Yonatan Sagastume MD Work Phone: [facility] 02-15-2023 14:19-0500 Systolic blood pressure 130 mm[Hg] Yonatan Sagastume MD Work Phone: [facility] 10-29-2022 15:56-0400 Body weight 80.69 kg Yonatan Sagastume MD Work Phone: [facility] 10-29-2022 15:56-0400 Diastolic blood pressure 60 mm[Hg] Yonatan Sagastume MD Work Phone: [facility] 10-29-2022 15:56-0400 Heart rate 64 /min Yonatan Sagastume MD Work Phone: [facility] 10-29-2022 15:56-0400 Respiratory rate 12 /min Yonatan Sagastume MD Work Phone: [facility] 10-29-2022 15:56-0400 Systolic blood pressure 114 mm[Hg] Yonatan Sagastume MD Work Phone: [facility] 09-30-2022 16:23-0400 Body weight 80.2 kg Yonatan Sagastume MD Work Phone: [facility] 09-30-2022 16:23-0400 Diastolic blood pressure 70 mm[Hg] Yonatan Sagastume MD Work Phone: [facility] 09-30-2022 16:23-0400 Heart rate 64 /min Yonatan Sagastume MD Work Phone: [facility] 09-30-2022 16:23-0400 Respiratory rate 12 /min Yonatan Sagatsume MD Work Phone: [facility] 09-30-2022 16:23-0400 Systolic blood pressure 114 mm[Hg] Yonatan Sagastume MD Work Phone: [facility] 06-01-2022 16:57-0400 Body temperature 98.1 [degF] Yonatan Sagastume MD Work Phone: [facility] 06-01-2022 16:57-0400 Body weight 85.73 kg Yonatan Sagastume MD Work Phone: [facility] 06-01-2022 16:57-0400 Diastolic blood pressure 70 mm[Hg] Yonatan Sagastume MD Work Phone: [facility] 06-01-2022 16:57-0400 Heart rate 60 /min Yonatan Sagastume MD Work Phone: [facility] 06-01-2022 16:57-0400 Respiratory rate 12 /min Yonatan Sagastume MD Work Phone: [facility] 06-01-2022 16:57-0400 SaO2% (BldA) [Mass fraction] 95 % Yonatan Sagastume MD Work Phone: [facility] 06-01-2022 16:57-0400 Systolic blood pressure 118 mm[Hg] Yonatan Sagastume MD Work Phone: [facility] 04-24-2022 14:19-0500 Body height 176.5 cm Yonatan Sagastume MD Work Phone: [facility] 04-24-2022 14:19-0500 Body weight 84.37 kg Yonatan Sagastume MD Work Phone: [facility] 04-24-2022 14:19-0500 Diastolic blood pressure 78 mm[Hg] Yonatan Sagastume MD Work Phone: [facility] 04-24-2022 14:19-0500 Heart rate 64 /min Yonatan Sagastume MD Work Phone: [facility] 04-24-2022 14:19-0500 Respiratory rate 16 /min Yonatan Sagastume MD Work Phone: [facility] 04-24-2022 14:19-0500 SaO2% (BldA) [Mass fraction] 98 % Yonatan Sagastume MD Work Phone: [facility] 04-24-2022 14:19-0500 Systolic blood pressure 132 mm[Hg] Yonatan Sagastume MD Work Phone: [facility] 12-24-2021 08:01-0400 Body temperature 97.3 [degF] Shraddha Older BODY TRIMMER.DX BOARD OPERATOR Work Phone: [facility] 12-24-2021 08:01-0400 Body weight 84.37 kg Shraddha Older BODY TRIMMER.DX BOARD OPERATOR Work Phone: [facility] 12-24-2021 08:01-0400 Diastolic blood pressure 84 mm[Hg] Shraddha Older BODY TRIMMER.DX BOARD OPERATOR Work Phone: [facility] 12-24-2021 08:01-0400 Heart rate 60 /min Shraddha Older BODY TRIMMER.DX BOARD OPERATOR Work Phone: [facility] 12-24-2021 08:01-0400 Respiratory rate 14 /min Shraddha Older BODY TRIMMER.DX BOARD OPERATOR Work Phone: [facility] 12-24-2021 08:01-0400 Systolic blood pressure 176 mm[Hg] Shraddha Older BODY TRIMMER.DX BOARD OPERATOR Work Phone: [facility] 06-24-2021 13:54-0400 Body height 182.9 cm Darrion Blackwell MD Work Phone: [facility] 06-24-2021 13:54-0400 Body temperature 98.1 [degF] Darrion Blackwell MD Work Phone: [facility] 06-24-2021 13:54-0400 Body weight 86.64 kg Darrion Blackwell MD Work Phone: [facility] 06-24-2021 13:54-0400 Diastolic blood pressure 87 mm[Hg] Darrion Blackwell MD Work Phone: [facility] 06-24-2021 13:54-0400 Heart rate 80 /min Darrion Blackwell MD Work Phone: [facility] 06-24-2021 13:54-0400 SaO2% (BldA) [Mass fraction] 99 % Darrion Blackwell MD Work Phone: [facility] 06-24-2021 13:54-0400 Systolic blood pressure 162 mm[Hg] Darrion Blackwell MD Work Phone: [facility] 03-29-2019 13:09-0500 BMI (Body Mass Index) 25.5 kg/m2 Rk [facility]RE[facility] -Mateus Sebastian Work Phone: 03-29-2019 13:09-0500 Body weight 85.28 kg Rk Alvaro GQ-Mautsak-Awabe Mikana Work Phone: 03-29-2019 13:09-0500 BP Diastolic 86 mm[Hg] Rk Alvaro NG-Mqituiq-Folyj Romulo Work Phone: 03-29-2019 13:09-0500 BP Systolic 148 mm[Hg] Rk Alvaro XM-Pbsufun-Hdfdr Romulo Work Phone: 03-29-2019 13:09-0500 BSA (Body Surface Area) 2.08 m2 Rk Alvaro LM-Rihxubz-Zgzko Mikana Work Phone: 03-29-2019 13:09-0500 Height 182.88 cm Rk Alvaro SE-Wcjjuok-Vymcz Romulo Work Phone: 03-29-2019 13:09-0500 Pulse (Heart Rate) 55 /min Rk Alvaro YZ-Desgtvs-Ei jacque Romulo Work Phone: Encounters Encounter Date Encounter Type Care Provider Facility Start: 05-11-2023 End: 05-11-2023 Patient encounter procedure Vivi Estrada MD Work Phone: Pulmonary Medicine Procedures Date Procedure Procedure Detail Performing Clinician [...] Detail Author Start: 04-08-2028 Urine microalbumin profile [facility] Start: 03-30-2026 Diabetes Screening Diabetes Screenin g [facility] Start: 10-23-2025 DIABETES SCREEN DIABETES SCREEN [facility] Start: 10-23-2025 Diabetes Screening Diabetes Screenin g [facility] Start: 04-16-2025 DIABETES SCREEN DIABETES SCREEN [facility] Start: 04-16-2024 DIABETES SCREEN DIABETES SCREEN [facility] Start: 10-01-2023 COVID-19 VACCINE (6 - Moderna series) COVID-19 VACCINE (6 - Moderna series) [facility] Immunizations Immunization Date Immunization Notes Care Provider Fa cili 03-30-2023 pneumococcal conjuga te (PCV20) vaccine, 20 valent (PREVNAR 20) Yontaan Sagastume MD Work Phone: [facility] 12-11-2022 COVID-19 vaccine, ag e 12+ yr, season (PFIZER-BIONTECH) Immunization [place] Work Phone: [facility] Work Phone: 12-02-2022 influenza (HD-IIV4) vaccine, age 65+ yr, high dose, quadrivalent, PF (FLUZONE HIGH-DOSE) Immunization [place] Work Phone: [facility] Work Phone: 12-12-2021 influenza, high-dose , quadrivalent vaccine (FLUZONE HIGH DOSE QUADRIVALENT) Nc Nurse Work Phone: [facility] Work Phone: 10-07-2021 COVID-19 vaccine, ag e 12+ yr (PFIZER-BIONTECH - ARIZMENDI TOP) [place] Nurse Work Phone: [facility] Work Phone: 02-03-2021 COVID-19 vaccine, fu ll dose (MODERNA) [place] Nurse Work Phone: [facility] Work Phone: 11-15-2020 influenza, high-dose , quadrivalent vaccine (FLUZONE HIGH DOSE QUADRIVALENT) Mac Rodríguez MD Work Phone: [facility] 05-15-2020 COVID-19 vaccine, fu ll dose (MODERNA) Mac Rodríguez MD Work Phone: [facility] Work Phone: 04-16-2020 COVID-19 vaccine, fu ll dose (MODERNA) Mac Rodríguez MD Work Phone: [facility] Work Phone: 12-27-2019 influenza, high-dose , quadrivalent vaccine (FLUZONE HIGH DOSE QUADRIVALENT) Mac Rodríguez MD Work Phone: [facility] 12-13-2018 influenza, high dose seasonal, preservative-free Mac Rodríguez MD Work Phone: [facility] 08-15-2018 zoster vaccine recombinant Mac Rodríguez MD Work Phone: [facility] Work Phone: 06-06-2018 zoster vaccine recombinant Mac Rodríguez MD Work Phone: [facility] Work Phone: 04-08-2018 tetanus and diphther ia toxoids, adsorbed, preservative free, for adult use (5 Lf of tetanus toxoid and 2 Lf of diphtheria toxoid) Mac Rodríguez MD Work Phone: [facility] Work Phone: 12-18-2017 influenza, high dose seasonal, preservative-free Mac Rodríguez MD Work Phone: [facility] 12-30-2016 influenza, high dose rochelle, preservative-free Mac Rodríguez MD Work Phone: [facility] Work Phone: 12-28-2015 influenza, high dose seasonal, preservative-free Mac Rodríguez MD Work Phone: [facility] 05-30-2015 pneumococcal conjuga te vaccine, 13 valent Mac Rodríguez MD Work Phone: [facility] Work Phone: 12-27-2014 influenza, high dose seasonal, preservative-free Mac Rodríguez MD Work Phone: [facility] 01-03-2014 influenza, seasonal, injectable Mac Rodríguez MD Work Phone: [facility] 12-31-2012 influenza virus vaccine, unspecified formulation Mac Rodríguez MD Work Phone: [facility] Work Phone: 12-05-2011 influenza virus vaccine, unspecified formulation Mac Rodríguez MD Work Phone: [facility] Work Phone: 12-13-2010 influenza virus vaccine, unspecified formulation Mac Rodríguez MD Work Phone: [facility] 12-17-2009 influenza virus vaccine, unspecified formulation Mac Rodríguez MD Work Phone: [facility] Work Phone: 12-01-2008 influenza virus vaccine, unspecified formulation Mac Rodríguez MD Work Phone: [facility] Work Phone: 04-30-2008 pneumococcal polysaccharide vaccine, 23 valent Mac Rodríguez MD Work Phone: [facility] 01-09-2008 influenza virus vaccine, whole virus Mac Rodríguez MD Work Phone: [facility] Work Phone: 01-09-2008 tetanus toxoid, redu flaco diphtheria toxoid, and acellular pertussis vaccine, adsorbed Mac Rodríguez MD Work Phone: [facility] Work Phone: 06-21-2007 zoster vaccine, live Mac Rodríguez MD Work Phone: [facility] Work Phone: 01-11-2007 influenza virus vaccine, unspecified formulation Mac Rodríguez MD Work Phone: [facility] Work Phone: 01-05-2006 influenza virus vaccine, unspecified formulation Mac Rodríguez MD Work Phone: [facility] Payers Date Payer Category Payer Medicare [id number] 2015 Private Health Insurance HUMANA HUMANA MEDICARE SUPPLEMENT [id number] 2015-Present [phone] [address] [place] [phone] Indemnity [id number] 2015 Private Health Insurance HUMANA HUMANA MEDICARE SUPPLEMENT [id number] 2015-Present [phone] [address] [address] [place] [address] Indemnity [id number] 2008 Medicare MEDICARE MEDICAR E A AND B [id number] 2008-Present [phone] [place] [phone] Medicare [id number] 2008 Medicare MEDICARE MEDICAR E A AND B [id number] 2008-Present [phone] [place] [phone] Medicare [id number] 2008 Medicare [id number] Social History Date Type Detail Facility Start: 11-14-2012 End: 12-24-2021 Tobacco smoking status NHIS Never smoked tobacco [facility] Work Phone: Start: 06-12-2021 End: 05-11-2023 Alcohol intake Current drinker of alcohol (finding) [facility] Start: 06-12-2021 End: 09-30-2022 Alcohol intake [facility] Work Phone: Start: 04-21-2021 End: 04-24-2022 History SDOH Alcohol Frequency 3 [facility] Start: 04-21-2021 History SDOH Alcohol Std Drinks 1 [facility] Start: 04-21-2021 End: 04-24-2022 History SDOH Physical Activity DPW 7 [facility] Start: 04-21-2021 History SDOH Physica l Activity MPS 6 [facility] Start: 1945 Sex Assigned At Not on file C [facility] Start: 06-01-2021 End: 12-08-2021 Exposure to SARS-CoV-2 (event) Not sure [facility] Start: 11-14-2012 End: 12-24-2021 Tobacco use and exposure Smokeless tobacco non-user [facility] Start: 04-21-2021 End: 09-30-2022 Alcohol Use Disorder Identification Test - Consumption [AUDIT-C] [facility] Work Phone: How often to you hav e a drink containing alcohol? 2-4 times a month [facility] Work Phone: How many standard dr inks containing alcohol do you have on a typical day? 1 or 2 [facility] Work Phone: How often do you hav e 6 or more drinks on 1 occasion? Never [facility] Work Phone: Adult Depression Screening Assessment 0 [facility] Work Phone: NEGATED: Highlighted row - - TE-Cwiwlxb-Hmnvr Mikana Work Phone: Medical Equipment Procedure Code Equipment Code Equipment Origin al Text Equipment Identifier Dates Lens Acrysof Iq Toric 6mm +18 Diopter +2.25 Cylinder 0 D Biconvex Acrylic - [id number] Start: 06-24-2018 Lens Acrysof Iq Toric Stableforce 6mm 0 D +18.5 Diopter +1.5 Cylinder - [id number] Start: 07-08-2018 Functional Status Date Assessment Result Facility NEGATED: Highlighted row Functional performance Functional status health issues are not documented Disease BW-Vkbtzxe-Hbrca Romulo Work Phone: Mental Status Date Assessment Result Facility NEGATED: Highlighted row Cognitive function [Interpretation] Cognitive status health issues are not documented Disease YR-Cfnvebh-Jlgtv [facility] Work Phone: Clinical Notes 01-21-2018 to 05-11-2023 Vivi Estrada MD - 05/11/2023 8:00 AM ESTTelephone Encounter - Shauna Raymundo RN - 04/14/2023 8:07 AM Ashia Strickland RPFT - 02/17/2023 7:56 AM EST Note Date & Type Note Facility 05-11-2023 History of Presen t illness Narrative Images from the original note were not included. . Respiratory [place] Note Patient name: Madyson Ferris PCP: Yonatan Sagastume MD CC: Follow-up cough/pneumonia HPI: Madyson Ferris 78 year old male non-smoker with PMH significant for GERD/hiatal hernia, HLD, PAFseen for evaluation of chronic cough. Recent history notable for H. Influenza PNA with sepsis. PFTs showed small airways obstruction with airtrapping. He was tried on albuterol without improvement in his symptoms. Plan was to repeat evaluation after PNA cleared and anti-reflux measures were recommended at his NAI. Today he states he has been doing well. He is back to exercising including biking and golfing without any major issues. He continues to have occasional cough chest tightness, shortness of breath or wheezing. Chest x-ray markedly improved. He denies any palpitations or chest pain but has some chest discomfort, midsternal when he lies down at night. He has known GERD and is currently not taking any specific medication for reflux. No fevers or chills or night sweats. DATA: Labs: Component Ref Range & Units 1 mo ago (03/30/23) WBC 3.70 - 11.00 k/uL 5.47 RBC 4.20 - 6.00 m/uL 4.21 Hemoglobin 13.0 - 17.0 g/dL 13.4 Hematocrit 39.0 - 51.0 % 38.9 Low MCV 80.0 - 100.0 fL 92.4 MCH 26.0 - 34.0 pg 31.8 MCHC 30.5 - 36.0 g/dL 34.4 RDW-CV 11.5 - 15.0 % 14.1 Platelet Count 150 - 400 k/uL 167 MPV 9.0 - 12.7 fL 10.1 Absolute nRBC <0.01 k/uL <0.01 Imaging / Diagnostic Studies: DATE OF EXAM: Apr 13 2023 8:11AM WOX [id number] - XR CHEST 2V FRONTAL/LAT / PROCEDURE REASON: Pneumonia of right middle lobe due to infectious organism EXAMINATION: CHEST RADIOGRAPH (2 VIEW FRONTAL & LATERAL) CLINICAL HISTORY: Pneumonia of right middle lobe due to infectious organism MQ: [id number] EXAM DATE/TIME: 04/13/2023 8:11 AM COMPARISON: Chest x-ray 03/30/2023 RESULT: Lines, tubes, and devices: None. Lungs and pleura: Decreased prominence of patchy opacities in the mid right lung. Left lung appears clear. No pleural effusion or pneumothorax. Cardiomediastinal silhouette: Stable cardiomediastinal silhouette Bones and soft tissues: Unremarkable. 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 John, urology Pseudophakia of both eyes Rupture of right proximal biceps tendon 01/21/2018 Snoring ALLERGIES No Known Allergies metoprolol tartrate, short acting, (LOPRESSOR) 25 mg tablet Take 1 tablet by mouth two times a day. ELIQUIS 5 mg tab(s) Take 1 tablet by mouth two times a day. albuterol HFA (PROVENTIL HFA, VENTOLIN HFA) 90 mcg/actuation inhaler Inhale 2 Puffs as instructed every 6 hours as needed for wheezing/shortness of breath. wheat dextrin (BENEFIBER SUGAR FREE, DEXTRIN,) 3 gram/3.8 gram powd Take 2 teaspoonsful by mouth three times daily. COQ10, UBIQUINOL, ORAL Take 1 tablet by mouth once daily. Glucosamine-Chondroitin (OSTEO BI-FLEX) 250-200 mg tab Osteo Bi Flex Cholecalciferol, Vitamin D3, 5,000 unit cap Take 1 capsule by mouth once daily. Social History Tobacco Use Smoking status: Never Smokeless tobacco: Never Vaping Use Vaping Use: Never used Substance Use Topics Alcohol use: Yes Alcohol/week: 2.0 standard drinks of alcohol Types: 2 Cans of Beer (12oz) per week Drug use: No PMH, Social history, family history and surgical history reviewed and updated in EMR REVIEW OF SYSTEMS: CONSTITUTIONAL: No fevers, chills, nightsweats, unintended weight loss CARDIOVASCULAR: No chest pain, dyspnea, palpitations, orthopnea, PND, edema. PULM: See HPI GI: No dysphagia/odynophagia, reflux symptoms INTEGUMENTARY: No new skin changes PHYSICAL EXAMINATION: BP 122/78 Pulse 64 Temp (Src) 98.1 (Temporal Artery) Resp 17 Wt 181 lb (82.1kg) SpO2 94% General Appearance: Elderly male, NAD. Skin: Skin color, texture, turgor normal, no suspicious rashes or lesions. Head: Normocephalic, no masses, lesions, tenderness or abnormalities. Neck: No JVD, no masses Lungs: Not labored, normal to percussion, no wheezes or crackles. Heart: Irregular rhythm, no murmurs. Extremities: No edema or clubbing. Lymph Nodes: No cervical lymphadenopathy and No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 worse, more short of breath went to ER could not walk Initial contact with patient post discharge, spoke to patient. Patient identified by name and . TRANSITION CARE MANAGEMENT INITIAL OUTREACH DOCUMENTATION: Date of Outreach: 03/10/2023 Outreach Attempt 1: Contact Not Made Date of Discharge 03/09/2023 Some recent data might be hidden SUMMARY: -Pt discharged from [facility] on 03/09/2023. -Admitted for: Haemophilus influenzae, has had elevated heart rate needs to see Blind Slat Stapling Machine Operator in 3 weeks to follow up. Patient had asked for all of his records to be faxed to PCP office. Do you have a hospital follow up appointment with your PCP? Appointment on 03/16/2023 with PCP. Yes. Remind patient of appointment date, time, and location. If not within 14 calendar days of discharge - please reschedule accordingly. MEDICATIONS: Many patients have questions or concerns about their medications once they are home. he said got all the information he needed for his new medications Were you prescribed any new medications? Yes, Eliquis 5 mg one tablet twice daily, Metoprolol tartrate 25 mg one tablet twice daily, Levofloxacin 500 mg one tablet daily for 5 days Were you told to hold any medications? No Were any of your medications discontinued? No Do you have any questions about getting or taking your medications? No Your discharge instructions/After visit Summary (AVS) are important in guiding you through the recovery process. Is there anything I might help you understand? Yes, did receive discharge instructions/AVS at all. All of his questions were answered Do you have all the necessary equipment and supplies at home? received items from [facility] that he uses for his breathing, one item may be a spirometer No, follow site specific process to secure durable medical equipment and/or supplies for the patient, handoff to RN/DANCING INSTRUCTOR, or LIP Medical records from recent hospitalization: Care Everywhere [facility] 03-10-2023 Note HNO ID: [id number] Author: CARISSA WALKER LPN Service: ? Author Type: LICENSED NURSE Type: Progress Notes Filed: 03/11/2023 14:20 Note Text: Message left for pt to return call to a nurse to complete TCM notes. Pt does have appt with pcp 03/16/23. [facility] 03-10-2023 Note Patient Outreach (IN TMWS) MADYSON FERRIS ([id number]) 1945 M Date Time Provider Department 03/10/23 YONATAN SAGASTUME INTParisaWS During your visit today, we recorded the following information about you: Carissa Walker LPN 03/11/2023 2:20 PM Signed Message left for pt to return call to a nurse to complete TCM notes. Pt does have appt with pcp 03/16/23. Yvonne Cho LPN 03/11/2023 2:20 PM Signed TRANSITION CARE MANAGEMENT (TCM) INITIAL CONTACT Capacity Manager Outreach Provider Action/FYI: [facility] Wednesday, Wednesday and Wednesday discharged 03/09/2023 night coughing short of breath, [facility] morning feeling worse, more short of breath went to ER could not walk Initial contact with patient post discharge, spoke to patient. Patient identified by name and . TRANSITION CARE MANAGEMENT INITIAL OUTREACH DOCUMENTATION: Date of Outreach: 03/10/2023 Outreach Attempt 1: Contact Not Made Date of Discharge 03/09/2023 Some recent data might be hidden SUMMARY: -Pt discharged from [facility] on 03/09/2023. -Admitted for: Haemophilus influenzae, has had elevated heart rate needs to see Blind Slat Stapling Machine Operator in 3 weeks to follow up. Patient had asked for all of his records to be faxed to PCP office. Do you have a hospital follow up appointment with your PCP? Appointment on 03/16/2023 with PCP. Yes. Remind patient of appointment date, time, and location. If not within 14 calendar days of discharge - please reschedule accordingly. MEDICATIONS: Many patients have questions or concerns about their medications once they are home. he said got all the information he needed for his new medications Were you prescribed any new medications? Yes, Eliquis 5 mg one tablet twice daily, Metoprolol tartrate 25 mg one tablet twice daily, Levofloxacin 500 mg one tablet daily for 5 days Were you told to hold any medications? No Were any of your medications discontinued? No Do you have any questions about getting or taking your medications? No Your discharge instructions/After visit Summary (AVS) are important in guiding you through the recovery process. Is there anything I might help you understand? Yes, did receive discharge instructions/AVS at all. All of his questions were answered Do you have all the necessary equipment and supplies at home? received items from [facility] that he uses for his breathing, one item may be a spirometer No, follow site specific process to secure durable medical equipment and/or supplies for the patient, handoff to RN/DANCING INSTRUCTOR, or LIP Medical records from recent hospitalization: Care Everywhere Allergies As of Date: 03/10/2023 (No Known Allergies) Date Reviewed: 03/05/2023 Reviewed by: Soheila Metzger MA - Fully Assessed Reason for Visit: Transition Of Care [4074] Prescriptions as of 03/11/2023 - albuterol HFA (PROVENTIL HFA, VENTOLIN HFA) 90 mcg/actuation inhaler Inhale 2 Puffs as instructed every 6 hours as needed for wheezing/shortness of breath. - wheat dextrin (BENEFIBER SUGAR FREE, DEXTRIN,) 3 gram/3.8 gram powd Take 2 teaspoonsful by mouth three times daily. - COQ10, UBIQUINOL, ORAL Take 1 tablet by mouth once daily. - Glucosamine-Chondroitin (OSTEO BI-FLEX) 250-200 mg tab Osteo Bi Flex - Cholecalciferol, Vitamin D3, 5,000 unit cap Take 1 capsule by mouth once daily. Meds Comments as of 02/27/2020: 02/27/20 The medications are managed by this patient by: PATIENT [facility] Anna Marie, COA Problem List As Of Date 03/10/2023 Noted Resolved Internal hemorrhoids without mention of complic*09/28/2005 05/28/2016 Benign neoplasm of colon [D12.6] 02/04/2006 04/24/2022 Diverticulosis of colon (without mention of hem*02/04/2006 05/28/2016 External hemorrhoids without mention of complic*02/04/2006 05/28/2016 Other forms of migraine [346.8] 05/28/2016 Esophageal reflux [K21.9] 05/28/2016 Esophagitis, unspecified [K20.90] 08/11/2006 05/28/2016 Diaphragmatic hernia without mention of obstruc*08/11/2006 05/28/2016 Acute gastritis without mention of hemorrhage [*08/11/2006 05/28/2016 Digital mucous cyst [M67.449] 02/26/2011 05/26/2011 Cczfzzi-xj-ecv [K60.3] 04/08/2011 05/28/2016 Fissure in ano [K60.2] 04/08/2011 05/28/2016 Sprain of neck [S13.9XXA] 02/10/2013 05/28/2016 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 [facility] 03-05-2023 Note HNO ID: [id number] Author: Bob Summers PA Service: ? Author Type: Physician Correctional Agency Director Type: Progress Notes Filed: 03/05/2023 3:08 PM Note Text: This note was created using [employer]ancer[employer]. Subjective Madyson Ferris is a 77 year old male. HPI 77-year-old male presents for cough, fever, congestion x 1 day. Patient has had a chronic cough for months. He is following with his PCP for this. He had a chest x-ray 2 weeks ago that was normal. He recently had spirometry testing done which revealed possible asthma. He has a follow-up with pulmonology in March. Patient states that last night his cough got worse. It became more productive than it usually is. He started getting chills, nasal congestion and fever last night. He has not taken any Tylenol or Motrin today. No vomiting or diarrhea. No sick contacts. No chest pain or shortness of breath. 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 John, urology Pseudophakia of both eyes Rupture of right proximal biceps tendon 01/21/2018 Snoring PAST SURGICAL HISTORY Procedure Laterality Date ARTHRP KNE CONDYLEANDPLATU MEDIALANDLAT COMPARTMENTS Right 01/10/2019 COLONOSCOPY 12/15/2013 COLONOSCOPY FLX [...] - recommend follow up in 5 years ESOPHAGEAL CAPSULE ENDO 09/02/2021 Esoguard screening EXCISION OF SKIN GRAFT 2012 Lower lip SCC EYE SURGERY HX HEMORRHOIDECTOMY INT AND XTRNL 2/> COLUMN/GRABIEL 05/03/2007 HERNIA REPAIR HX JOINT REPLACEMENT HX KNEE ARTHROSCOP MENISCUS REPAIR MED/LAT 03/2015 right knee MOHS HEAD/NECK ADD STAGE<=5 12/2012 SCC Lower lip OPEN TX RADIALANDULNAR SHAFT FX W/FIXJ RADIUSANDULNA Left 12/02/2022 I AND D, ORIF left radius and ulna fracture PAST SURGICAL HISTORY OF 1979 BONE SPURS- bilateral heel. 1980s. PAST SURGICAL HISTORY OF 03/2011 right foot surgery for bone spurs PAST SURGICAL HISTORY OF 03/2011 left ring finger to remove a ganglion cyst RPR 1ST INGUN HRNA AGE 3 YRS/> REDUCIBLE 1979 Hernia repair, inguinal. SKIN BIOPSY HX TRURL ELECTROSURG RESCJ PROSTATE BLEED COMPLETE 03/10/2019 [facility] XCAPSL CTRC RMVL INSJ IO LENS PROSTH W/O ECP Right 06/24/2018 Cataract Extraction with PC IOL XCAPSL CTRC RMVL INSJ IO LENS PROSTH W/O ECP Left 07/08/2018 Cataract Extraction with PC IOL ALLERGIES Patient has no known allergies. MEDICATIONS albuterol HFA (PROVENTIL HFA, VENTOLIN HFA) 90 mcg/actuation inhaler Inhale 2 Puffs as instructed every 6 hours as needed for wheezing/shortness of breath. wheat dextrin (BENEFIBER SUGAR FREE, DEXTRIN,) 3 gram/3.8 gram powd Take 2 teaspoonsful by mouth three times daily. COQ10, UBIQUINOL, ORAL Take 1 tablet by mouth once daily. Glucosamine-Chondroitin (OSTEO BI-FLEX) 250-200 mg tab Osteo Bi Flex Cholecalciferol, Vitamin D3, 5,000 unit cap Take 1 capsule by mouth once daily. FAMILY HISTORY Problem Relation Age of Onset None Mother natural causes No Ocular Disease Mother Cancer Father [place] lymphoma No Ocular Disease Father No Known Problems Brother Barretts Esophagus Sister other (kidney transplant) Sister Cancer Brother 59 stomach AND esoph cancer Social History Tobacco Use Smoking status: Never Smokeless tobacco: Never Vaping Use Vaping Use: Never used Substance Use Topics Alcohol use: Yes Alcohol/week: 2.0 standard drinks of alcohol Types: 2 Cans of Beer (12oz) per week Drug use: No Review of Systems Constitutional: Positive for chills and fever. HENT: Positive for congestion. Negative for sore throat. Respiratory: Positive for cough. Negative for shortness of breath. Gastrointestinal: Negative for diarrhea and vomiting. Objective BP 104/60 Pulse 109 Temp (!) 38.6 ?C (101.4 ?F) (Right Tympanic) Resp 16 Wt 85.9 kg (189 lb 6.4 oz) SpO2 95% BMI 27.02 kg/m? Physical Exam Vitals and nursing note reviewed. Constitutional: (more content not included)... [facility] 02-17-2023 Note HNO ID: [id number] Author: Ashia Alva RPFT Service: ? Author Type: Respiratory Therapist Type: Progress Notes Filed: 02/17/2023 7:58 AM Note Text: PULM FUNCTION SMARTBLOCK: Provider: Yonatan Sagastume MD Assisting Tech: Ashia Alva RPFT Spirometry w/BD: 1 LV - Box: 1 [facility] 02-17-2023 History of Presen t illness Narrative PULM FUNCTION SMARTBLOCK: Provider: Yonatan Sagastume MD Assisting Tech: Ashia Alva RPFT Spirometry w/BD: 1 LV - Box: 1 documented in this encounter [facility] 02-15-2023 Note HNO ID: [id number] Author: Rosalie Spivey RT(R) Service: ? Author Type: Still Operator Gin Type: Progress Notes Filed: 02/15/2023 3:29 PM [...] RT Eliza(R) February 15, 2023 3:19 PM [facility] 02-15-2023 Note HNO ID: [id number] Author: Yonatan Sagastume MD Service: ? Author Type: Physician Type: Progress Notes Filed: 02/15/2023 3:09 PM Note Text: This note was created using [employer]. Subjective Madyson Ferris is a 77 year [...] demonstrated to the patient. Yonatan Sagastume MD [facility] 02-15-2023 History of en t illness Narrative This note was created using [employer]. Subjective Madyson Ferris is a 77 year [...] Yonatan Sagastume MD documented in this encounter [facility] 12-08-2022 Note HNO ID: [id number] Author: Yonatan Sagastume MD Service: ? Author Type: Physician Type: Progress Notes Filed: 12/08/2022 1:05 PM Note Text: This note was created using [employer]. Subjective Patient presents with: Hospital F/U Madyson [...] screening discussed. screening PSA ordered - PSA/PROSTSPECAG REGINAN Yonatan Sagastume MD [facility] documented as of this encounter (statuses as of 02/16/2023) [facility]10-03-2023 History of Past illness Narrative* Problem Noted Date Diagnosed Date Resolved Date Open fracture of left distal forearm 12/08/2022 10/0 05/202202/15/2023 Elevated blood pressure reading 04/24/2022 06/01/2022 Rupture of right proximal biceps tendon 01/21/2018 04/21/2021 Bicipital tendinitis of right shoulder 11/26/2017 04/21/2021 Overview: [facility] PSA elevation 05/27/2017 04/01/2018 Overview: Dr. Sandip Srivastava, Urology. 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 05/28/2016 Sprain of neck 02/10/2013 05/28/2016 Edwmwdb-vx-jxv 04/08/2011 05/28/2016 Fissure in ano 04/08/2011 05/28/2016 [...] of this encounter (statuses as of 02/16/2023) [facility]2023 History of Past illness Narrative* Problem Noted Date Diagnosed Date Resolved Date Open fracture of left distal forearm 12/08/2022 10/0 05/202202/15/2023 Elevated blood pressure reading 04/24/2022 06/01/2022 Rupture of right proximal biceps tendon 01/21/2018 04/21/2021 Bicipital tendinitis of right shoulder 11/26/2017 04/21/2021 Overview: [facility] PSA elevation 05/27/2017 04/01/2018 Overview: Dr. Sandip Srivastava, Urology. 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 05/28/2016 Sprain of neck 02/10/2013 05/28/2016 Gfbaldg-kz-xhb 04/08/2011 05/28/2016 Fissure in ano 04/08/2011 05/28/2016 [...] of this encounter (statuses as of 02/17/2023) [facility] History of Past illness Narrative* Problem Noted Date Diagnosed Date Resolved Date Open fracture of left distal forearm 12/08/2022 100 05/202202/15/2023 Elevated blood pressure reading 04/24/2022 06/01/2022 Rupture of right proximal biceps tendon 01/21/2018 04/21/2021 Bicipital tendinitis of right shoulder 11/26/2017 04/21/2021 Overview: [facility] PSA elevation 05/27/2017 04/01/2018 Overview: Dr. Sandip Srivastava, Urology. 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 05/28/2016 Sprain of neck 02/10/2013 05/28/2016 Vxhfhzk-gw-rlq 04/08/2011 05/28/2016 Fissure in ano 04/08/2011 05/28/2016 [...] as of this encounter (statuses as of 04/14/2023) [facility] History of Past illness Narrative* Problem Noted Date Diagnosed Date Resolved Date Open fracture of left distal forearm 12/08/2022 100 05/202202/15/2023 Elevated blood pressure reading 04/24/2022 06/01/2022 Rupture of right proximal biceps tendon 01/21/2018 04/21/2021 Bicipital tendinitis of right shoulder 11/26/2017 04/21/2021 Overview: [facility] PSA elevation 05/27/2017 04/01/2018 Overview: Dr. Sandip Srivastava, Urology. 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 05/28/2016 Sprain of neck 02/10/2013 05/28/2016 Lffikuk-an-wch 04/08/2011 05/28/2016 Fissure in ano 04/08/2011 05/28/2016 [...] as of this encounter (statuses as of 04/20/2023) [facility] History of Past illness Narrative* Problem Noted Date Diagnosed Date Resolved Date Open fracture of left distal forearm 12/08/2022 10/0 05/202202/15/2023 Elevated blood pressure reading 04/24/2022 06/01/2022 Rupture of right proximal biceps tendon 01/21/2018 04/21/2021 Bicipital tendinitis of right shoulder 11/26/2017 04/21/2021 Overview: [facility] PSA elevation 05/27/2017 04/01/2018 Overview: Dr. Sandip Srivastava, Urology. 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 05/28/2016 Sprain of neck 02/10/2013 05/28/2016 Dtblbpn-kw-uxv 04/08/2011 05/28/2016 Fissure in ano 04/08/2011 05/28/2016 [...] as of this encounter (statuses as of 05/08/2023) [facility] History of Past illness Narrative* Problem Noted Date Diagnosed Date Resolved Date Open fracture of left distal forearm 12/08/2022 10/0 05/202202/15/2023 Elevated blood pressure reading 04/24/2022 06/01/2022 Rupture of right proximal biceps tendon 01/21/2018 04/21/2021 Bicipital tendinitis of right shoulder 11/26/2017 04/21/2021 Overview: [facility] PSA elevation 05/27/2017 04/01/2018 Overview: Dr. Sandip Srivastava, Urology. 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 05/28/2016 Sprain of neck 02/10/2013 05/28/2016 Ygtvniu-bu-csg 04/08/2011 05/28/2016 Fissure in ano 04/08/2011 05/28/2016 [...] as of this encounter (statuses as of 05/11/2023) [facility]08-[facility]2023 NoteHNO ID: [id number] Author: Yonatan Sagastume MD Service: ? Author Type: Physician Type: Progress Notes Filed: 10/29/2022 5:04 PM Note Text: This note was created using [employer]. Subjective Madyson Ferris is a 77 year [...] E78.00 Improving. Continue lifestyle changes. Yonatan Sagastume [facility]08-24-2023 History of Present illness Narrative* Yonatan Sagastume MD - 10/29/2022 4:33 PM EDT This note was created using [employer]. Subjective Madyson Ferris is a 77 year [...] changes. Yonatan Sagastume MD [facility] NoteHNO ID: [id number] Author: Yonatan Sagastume MD Service: ? Author Type: Physician Type: Progress Notes Filed: 09/30/2022 5:00 PM Note Text: This note was created using [employer]. Subjective Madyson Ferris is a 77 year [...] reassess. Continue stretching and massages. Yonatan Sagastume [facility]07-26-2023 History of Present illness Narrative* Yonatan Sagastume MD - 09/30/2022 4:54 PM EDT This note was created using [employer]. Subjective Madyson Ferris is a 77 year [...] massages. Yonatan Sagastume MD [facility] Miscellaneous Notes* Telephone Encounter - Yvonne Cho LPN - 06/05/2022 12:42 PM EDT Patient returned call and went over results from Shraddha Hu TAPE RULES PRINTING MACHINE OPERATOR with understanding. * Telephone Encounter - Chloe [...] xray results. Shakila Garland documented in [facility] encounter[facility]2023 NoteHNO ID: [id number] Author: RT Kirsten(R) Service: Nuclear Medicine Author [...] BY: RT Kirsten(R) June 01, 2022 5:27 [facility]03-27-2023 NoteHNO ID: [id number] Author: Yonatan Sagastume MD Service: ? Author [...] 3 GRAM/3.8 GRAM ORAL POWDER Yonatan Sagastume [facility]03-27-2023 History of Present illness Narrative* Yonatan Sagastume MD - 06/01/2022 5:12 PM EDT This note was created using [employer]. Subjective Madyson Ferris is a 77 year [...] POWDER Yonatan Sagastume MD [facility] History of Past illness Narrative* Problem Noted Date Diagnosed Date Resolved Date Chronic cough 06/01/2022 10/29/2022 Elevated blood pressure reading 04/24/2022 06/01/2022 Rupture of right proximal biceps tendon 01/21/2018 04/21/2021 Bicipital tendinitis of right shoulder 11/26/2017 04/21/2021 Overview: [facility] PSA elevation 05/27/2017 04/01/2018 Overview: Dr. Sandip Srivastava, Urology. 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 05/28/2016 Sprain of neck 02/10/2013 05/28/2016 Jdvwsgv-oj-uzr 04/08/2011 05/28/2016 Fissure in ano 04/08/2011 05/28/2016 [...] of this encounter (statuses as of 10/30/2022) [facility] History of Past illness Narrative* Problem Noted Date Diagnosed Date Resolved Date Chronic cough 06/01/2022 10/29/2022 Elevated blood pressure reading 04/24/2022 06/01/2022 Rupture of right proximal biceps tendon 01/21/2018 04/21/2021 Bicipital tendinitis of right shoulder 11/26/2017 04/21/2021 Overview: [facility] PSA elevation 05/27/2017 04/01/2018 Overview: Dr. Sandip Srivastava, Urology. 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 05/28/2016 Sprain of neck 02/10/2013 05/28/2016 Hijsvvl-ap-szh 04/08/2011 05/28/2016 Fissure in ano 04/08/2011 05/28/2016 [...] of this encounter (statuses as of 12/12/2022) [facility]03-20-2023 NoteHNO ID: [id number] Author: Maddy Mcgowan APRN.DX BOARD OPERATOR Service: ? Author Type: Nurse Practitioner Type: Progress Notes Filed: 05/26/2022 10:49 AM Note Text: [facility] [place] [facility] Department of Cardiovascular Medicine SECTION [...] The last office visit visit with Dr. Lynn was 04/12/2020. Since last office visit patient [...] which included preparing to see the patient, rcis-gq-uugv patient care, completing clinical documentation, performing a [...] questions/problems arise prior to the follow up. Maddy Mcgowan APRN.[facility] Cardiology Nurse Practitioner Section of Regional Cardiology [facility] Dept of Cardiovascular Medicine [facility] [place] [address] Office Office May 25, 2022 12:28 PM This note was partially generated using [employer] voice recognition system and may contain errors [...] 04/16/2021 1.04 03/14/2020 0 (more content not included)...[facility]02-17-2023 NoteHNO ID: [id number] Author: Yonatan Sagastume MD Service: ? Author [...] Abs Lymph 1.00 - 4.00 k/uL 1.01 Spencer% % 12.5 Abs Spencer <0.87 k/uL 0.42 Eosin% % 3.3 Abs [...] may help reduce CV risk in the bed bug exterminator. Risks: Possible side effects were discussed including myalgia, liver inflammation. Possible interactions: n/a. Approved use or off label use: Yes. - ATORVASTATIN 10 MG TABLET - LIPID PANEL BASIC - COMP METABOLIC PANEL Yonatan Sagastume, [facility]02-17-2023 NoteHNO ID: [id number] Author: Yonatan Sagastume MD Service: ? Author Type: Physician Type: Progress Notes Filed: 04/24/2022 3:19 PM Note Text: Madyson Ferris is a 77 year old male here for a Medicare Subsequent Annual Wellness Visit Health Risk Assessment In general, health is: Excellent Concerns with balance:Not at all Concerns with teeth or dentures:Not at all Concerns with sexual function:Not at all [place] anxious, stressed, angry, irritable, lonely, isolated, or [...] record. Current care team: Patient Care Team: Yoantan Sagastume MD as PCP - General (Internal Medicine) Outside specialists seen: [facility] in [place]. Dr. Barrios, dentist. Dr. Moreno, gastroenterology. Dr. [...] weight loss. BMI 27.07 kg/(m2) - [facility] History of Present illness Narrative* Yonatan Sagastume MD - 04/24/2022 2:51 PM EST This note was created using [employer] Financer[employer]. 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 Risks: Possible side effects were discussed including [...] all Concerns with sexual function:Not at all [place] anxious, stressed, angry, irritable, lonely, isolated, or [...] - General (Internal Medicine) Outside specialists seen: [facility] in [place]. Dr. Barrios, dentist. Dr. Moreno, gastroenterology. Dr. [...] kg/(m^2) - Depression screening [facility] Nurse Note* Carrol Camarena LPN - 04/24/2022 2:18 PM EST VISUAL ACUITY: Today's exam: Vision Correction? No vision correction: RIGHT EYE: 20/20 LEFT EYE: 20/ 30 BOTH EYES: 20/25 documented in this encounterOur [facility] History of Past illness Narrative* Problem [...] 09/13/2013 05/28/2016 Sprain of neck 02/10/2013 05/28/2016 Jwdkmiy-jt-fgv 04/08/2011 05/28/2016 Fissure in ano 04/08/2011 05/28/2016 [...] of this encounter (statuses as of 06/02/2022) [facility] History of Past illness Narrative* Problem Noted Date Resolved Date Elevated blood pressure reading 04/24/2022 06/01/2022 Rupture of right proximal biceps tendon 01/22/20 18 04/21/2021 Bicipital tendinitis of right shoulder 8 04/21/2021 Overview: [facility] PSA elevation 05/27/2017 04/01/2018 Overview: Dr. Sandip Srivastava, Urology. GERD with esophagitis 02/04/2016 04/24/2022 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/13/2013 05/28/2016 Sprain of neck 02/10/2013 05/28/2016 Wdsbvsx-xe-yah 04/08/2011 05/28/2016 Fissure in ano 04/08/2011 05/28/2016 [...] of this encounter (statuses as of 06/05/2022) [facility] History of Past illness Narrative* Problem Noted Date Diagnosed Date Resolved Date Elevated blood pressure reading 04/24/2022 06/01/2022 Rupture of right proximal biceps tendon 01/21/2018 04/21/2021 Bicipital tendinitis of right shoulder 11/26/2017 04/21/2021 Overview: [facility] PSA elevation 05/27/2017 04/01/2018 Overview: Dr. Sandip Srivastava, Urology. 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 05/28/2016 Sprain of neck 02/10/2013 05/28/2016 Aiadlrt-sv-sos 04/08/2011 05/28/2016 Fissure in ano 04/08/2011 05/28/2016 [...] of this encounter (statuses as of 10/01/2022) [facility]02-06-[facility]23 Miscellaneous Notes* Telephone Encounter - Kapil [...] message. Evelyn Peña LPN documented in this encounterOur [facility] Of [facility]10-19-2022 Instructions* Patient Instructions* Shraddha Hu APRN.CNP - 12/24/2021 8:13 AM EDT Start Flonase over the counter. Use daily for two weeks and let me know if your symptoms don't improve documented in this encounterOur Lady Of [facility]10-19-2022 History of Present illness Narrative* Shraddha [...] reflux External hemorrhoids without mention of complication Iwscjln-aj-wce 04/08/2011 GERD with esophagitis 02/04/2016 History of [...] 5 YRS/> REDUCIBLE 1980 Hernia repair, inguinal. 1980s SKIN BIOPSY HX TRURL ELECTROSURG RESCJ PROSTATE BLEED COMPLETE 03/10/2019 [facility] XCAPSL CTRC RMVL INSJ IO LENS PROSTH [...] Patient agreeable to treatment plan. Shraddha Hu APRN.LAURA documented in this encounterOur Lady Of [facility]08-02-2022 History of Present illness Narrative* Ruth Warren LPN - 10/07/2021 2:35 PM EDT Patient presents for COVID booster. Denies any problems at this time. Tolerated injection well. Ruth Warren LPN documented in this encounterOur [facility] Of [facility]04-20-[facility]22 History of Present illness Narrative* Darrion Blackwell MD - 06/25/2021 10:03 AM EDT FOLLOW UP VISIT - ENDOSCOPY - RECURRENT SYMPTOMS NAME: Madyson Ferris [facility] NO.: [id number] DATE OF SERVICE:June 24, 2021 : 1945 [...] No evidence of intestinal metaplasia or dysplasia. ADELE/antionette/12/18/2013 The patient had a normal colonoscopy at [...] recurred I am comfortable with him taking brbg-zau-yojqyev Prilosec 20 mg indefinitely. At this point [...] needed. Darrion Blackwell MD documented in this encounterOur [facility] Of [facility]04-07-2022 History of Present illness Narrative* Mac Rodríguez MD - 06/12/2021 8:47 AM EDT Mac Rodríguez MD Department of Orthopaedics Orthopaedics [facility] [address] Dept: [phone] Dept June 12, 2021 CHIEF COMPLAINT: New [...] at the 2nd through 5th DIP joints. Firearms Sales Associate: PSCB Transcribe Date/Time: Jun 12 2021 8:49A Dictated [...] reflux External hemorrhoids without mention of complication Djjnoor-pe-xto 04/08/2011 GERD with esophagitis 02/04/2016 History of [...] in 5 years EXCISION OF SKIN GRAFT 2013 Lower lip SCC EYE SURGERY HX HEMORRHOIDECTOMY INT & XTRNL 2/> COLUMN/GRABIEL 05/03/2007 HERNIA REPAIR HX JOINT REPLACEMENT HX KNEE ARTHROSCOP MENISCUS REPAIR MED/LAT 03/2015 right knee MOHS HEAD/NECK ADD STAGE<=5 12/2012 SCC Lower lip PAST SURGICAL HISTORY OF 1979 BONE SPURS- bilateral heel. . PAST SURGICAL HISTORY OF 03/2011 right foot surgery for bone spurs PAST SURGICAL HISTORY OF 03/2011 left ring finger to remove a ganglion cyst RPR 1ST INGUN HRNA AGE 3 YRS/> REDUCIBLE 1979 Hernia repair, inguinal. SKIN BIOPSY HX TRURL ELECTROSURG RESCJ PROSTATE BLEED COMPLETE 03/10/2019 [facility] XCAPSL CTRC RMVL INSJ IO LENS PROSTH [...] electronic medical record. SELF Yonatan Sagastume MD [address] [facility] [address] Mac Rodríguez MD documented in this encounterOur Lady Of Mercy Hospital11-16-2018 History of Past illness Narrative* Problem Noted Date Resolved Date Rupture of right proximal biceps tendon 01/22/20 18 04/21/2021 Bicipital tendinitis of right shoulder 8 04/21/2021 Overview: [facility] PSA elevation 05/27/2017 04/01/2018 Overview: Dr. Sandip Srivastava, Urology. 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/13/2013 05/28/2016 Sprain of neck 02/10/2013 05/28/2016 Croupjq-xj-hgj 04/08/2011 05/28/2016 Fissure in ano 04/08/2011 05/28/2016 [...] of this encounter (statuses as of 06/12/2021) [facility] History of Past illness Narrative* Problem Noted Date Resolved Date Rupture of right proximal biceps tendon 01/22/20 18 04/21/2021 Bicipital tendinitis of right shoulder 8 04/21/2021 Overview: [facility] PSA elevation 05/27/2017 04/01/2018 Overview: Dr. Sandip Srivastava, Urology. 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/13/2013 05/28/2016 Sprain of neck 02/10/2013 05/28/2016 Xojbnwy-jd-zpd 04/08/2011 05/28/2016 Fissure in ano 04/08/2011 05/28/2016 [...] of this encounter (statuses as of 06/25/2021) [facility] History of Past illness Narrative* Problem Noted Date Resolved Date Rupture of right proximal biceps tendon 01/22/20 18 04/21/2021 Bicipital tendinitis of right shoulder 8 04/21/2021 Overview: [facility] PSA elevation 05/27/2017 04/01/2018 Overview: Dr. Sandip Srivastava, Urology. 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/13/2013 05/28/2016 Sprain of neck 02/10/2013 05/28/2016 Ryjkfwf-hp-ibi 04/08/2011 05/28/2016 Fissure in ano 04/08/2011 05/28/2016 [...] of this encounter (statuses as of 10/07/2021) [facility] of Past illness Narrative* Problem Noted Date Resolved Date Rupture of right proximal biceps tendon 01/22/20 18 04/21/2021 Bicipital tendinitis of right shoulder 8 04/21/2021 Overview: [facility] PSA elevation 05/27/2017 04/01/2018 Overview: Dr. Sandip Srivastava, Urology. 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/13/2013 05/28/2016 Sprain of neck 02/10/2013 05/28/2016 Lejexvx-gz-vgh 04/08/2011 05/28/2016 Fissure in ano 04/08/2011 05/28/2016 [...] of this encounter (statuses as of 12/12/2021) [facility] of [facility] Narrative* Problem [...] 09/13/2013 05/28/2016 Sprain of neck 02/10/2013 05/28/2016 Umqtwls-wi-sti 04/08/2011 05/28/2016 Fissure in ano 04/08/2011 05/28/2016 [...] of this encounter (statuses as of 12/24/2021) [facility] of Past illness Narrative* Problem Noted Date Resolved Date Rupture of right proximal biceps tendon 01/22/20 18 04/21/2021 Bicipital tendinitis of right shoulder 8 04/21/2021 Overview: [facility] PSA elevation 05/27/2017 04/01/2018 Overview: Dr. Sandip Srivastava, Urology. 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/13/2013 05/28/2016 Sprain of neck 02/10/2013 05/28/2016 Kbsfumi-np-kwz 04/08/2011 05/28/2016 Fissure in ano 04/08/2011 05/28/2016 [...] of this encounter (statuses as of 04/13/2022) [facility] of [facility] illness Narrative* Problem Noted Date Resolved Date Rupture of right proximal biceps tendon 01/22/20 18 04/21/2021 Bicipital tendinitis of right shoulder 8 04/21/2021 Overview: [facility] PSA elevation 05/27/2017 04/01/2018 Overview: Dr. Sandip Srivastava, Urology. 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 documented [facility] this encounter [facility]* Diagnosis Gastroesophageal reflux disease with esophagitis, unspecified whether hemorrhage- Primary [facility] Need for vaccination- Primary Need for prophylactic vaccination and inoculation against unspecified single disease [facility] Diagnosis Subacute cough- Primary Cough [facility]* Diagnosis Hypercholesterolemia- Primary Pure hypercholesterolemia Impaired fasting glucose Gastroesophageal reflux disease with esophagitis without hemorrhage [facility] this encounter [facility]* Diagnosis Medicare annual wellness visit, subsequent- Primary Routine general medical examination at a health care facility Elevated blood pressure reading Elevated blood pressure reading without diagnosis of hypertension Hypercholesterolemia Pure hypercholesterolemia [facility]* Diagnosis Chronic cough- Primary Cough Hypercholesterolemia Pure hypercholesterolemia [facility]* Diagnosis Pain of left calf- Primary Pain in limb [facility]* Diagnosis Persistent insomnia- Primary Persistent disorder of initiating or maintaining sleep Hypercholesterolemia Pure hypercholesterolemia [facility]* Diagnosis Chronic cough- Primary Cough [facility]* Diagnosis Chronic cough Cough [facility] Diagnosis Chronic cough Cough documented in this [facility]* Diagnosis Small airways disease- Primary Other diseases of lung, not elsewhere classified History of pneumonia Personal history of pneumonia (recurrent) Gastroesophageal reflux disease, unspecified whether esophagitis present PAF (paroxysmal atrial fibrillation) (HCC) Atrial fibrillation documented in this encounter [facility] for referral (narrative)* Outpatient Procedure (Routine) - Authorized Specialty Diagnoses / Procedures [facility] Diagnoses Chronic cough Procedures LUNG VOLUMES Yonatan Sagastume MD [address] [place] [address] [address] Referral ID Status Reason Start Date Expiration Date Visits Requested Visits Authorized [id number] Authorized Auto-Generat ed Referral 3 03/16/2024 1 1 * Outpatient Procedure (Routine) - Authorized Specialty Diagnoses / Procedures [facility] Diagnoses Chronic cough Procedures SPIROMETRY WITH DILATOR IF OBSTRUCTED BRNCDILAT RSPSE SPMTRY PRE&POST-BRNCDILAT ADMN Yonatan Sagastume MD [address] [place] [address] [address] Referral ID Status Reason Start Date Expiration Date Visits Requested Visits Authorized [id number] Authorized Auto-Generat ed Referral 3 03/16/2024 1 1 [facility] for referral (narrative)* Outpatient Procedure (Routine) - Authorized Specialty Diagnoses / Procedures [facility] To [facility] [place] Diagnoses Small airways disease Procedures NITRIC OXIDE, EXHALED NITRIC OXIDE GAS DETERMINATION Vivi Estrada MD [address] [place] [address] Respiratory [place] [id number] Referral ID Status Reason Start Date Expiration Date Visits Requested Visits Authorized [id number] Authorized Auto-Generat ed Referral 05/11/2023 06/09/2024 1 1 * Outpatient Procedure (Routine) - Authorized Specialty Diagnoses / Procedures Referred By [facility] Referred To Contact [facility] [place] Diagnoses Small airways disease Procedures LUNG VOLUMES Vivi Estrada MD [address] [place] [address] [address] Referral ID Status Reason Start Date Expiration Date Visits Requested Visits Authorized [id number] Authorized Auto-Generat ed Referral 05/11/2023 06/09/2024 1 1 * Outpatient Procedure (Routine) - Authorized Specialty Diagnoses / Procedures Referred By [facility] Referred To Contact [facility] [place] Diagnoses Small airways disease Procedures SPIROMETRY - BASELINE AND POST DILATOR BRNCDILAT RSPSE SPMTRY PRE&POST-BRNCDILAT ADMN Vivi Estrada MD [address] [place] [address] [address] Referral ID Status Reason Start Date Expiration Date Visits Requested Visits Authorized [id number] Authorized Auto-Generat ed Referral 05/11/2023 06/09/2024 1 1 [facility] Summary Purpose Family History Mother Name Dates Details No pertinent family history( V49.89, Z78.9) Status:Active Father Name Dates Details No pertinent family history( V49.89, Z78.9) Status:Active Mother Name Dates Details No pertinent family history( V49.89, Z78.9) Status:Active Father Name Dates Details No pertinent family history( V49.89, Z78.9) Status:Active Advance Directives Documents on File Type Date Recorded 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 Advance Directive(s) 04/18/2020 6:48 AM Advance Directive(s) 03/29/2020 2:00 PM Advance Directive(s) 06/17/2018 12:17 PM Advance Directive(s) 06/17/2018 12:22 PM Advance Directive(s) 01/28/2016 5:58 AM Advance Directive(s) 01/20/2016 4:48 PM Advance Directive(s) 02/01/2009 10:32 PM Documents on File Type Date Recorded 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 CHIEF [...] Provider RoleProvider Name Rk Goncalves Victor D AttendingLoeb, Aram Note Recipients: Rk John MD Velasquez, Victor D, MD - [phone] [] Discharge: Summary: Admission Date: .10-Mar-2019 09:33:00 Discharge Date: 11-Mar-2019 Attending Physician at Discharge: Rk John Admission Reason: BPH Final Discharge Diagnoses: BPH Procedures: Date: 10-Mar-2019 13:00:00 Procedure Name: 1. cystoscopy 2. transurethral resection of the prostate Condition at Discharge: Satisfactory Disposition at Discharge: .Home Vital Signs: T PRBPSpO2 [id number]/8294% Date/Time03/11 7:5303/11 7:5303/11 7:5303/11 7:531 7:53 Range(36.2C - 37C ) (62 [...] the prostate Surgeon: Dr. Rk John Resident/Fellow/Other Correctional Agency Director: Dr. Román Wise, Dr. Bee Cantu Estimated [...] Hospital Course Note Send Summary: Discharge Summ bettina Providers: Provider RoleProvider Name ReferringRk John Victor D AttendingLoeb, Aram Note Recipients: Rk John MD Velasquez, Victor D, MD - [phone] [] Discharge: Summary: Admission Date: .10-Mar-2019 09:33:00 Discharge Date: 11-Mar-2019 Attending Physician at Discharge: Rk John Admission Reason: BPH Final Discharge Diagnoses: BPH Procedures: Date: 10-Mar-2019 13:00:00 Procedure Name: 1. cystoscopy 2. transurethral resection of the prostate Condition at Discharge: Satisfactory Disposition at Discharge: .Home Vital Signs: T PRBPSpO2 [id number]/8294% Date/Time03/11 7:5303/11 7:5303/11 7:5303/11 7:5303/11 7:53 Range(36.2C - 37C ) (62 - [...] the prostate Surgeon: Dr. Rk John Resident/Fellow/Other Correctional Agency Director: Dr. Román Wise, Dr. Bee Cantu Estimated [...] resection of the prostate Surgeon: Dr. Rk Jonh Resident/Fellow/Other Correctional Agency Director: Dr. Román Wise, Dr. Bee Cantu Estimated [...] DATE CREATED AUTHOR AUTHOR'S ORGANIZ ATION 01/14/2019 [facility] DATE CREATED AUTHOR AUTHOR'S ORGANIZ ATION 03/29/2019 [employer] DATE CREATED AUTHOR AUTHOR'S ORGANIZ ATION 04/05/2019 [facility] DATE CREATED AUTHOR AUTHOR'S ORGANIZ ATION 03/29/2023 [facility] DATE CREATED AUTHOR AUTHOR'S ORGANIZ ATION 04/16/2023 [facility] Source Comments (unrecognize d section and content) In the event this informatio n is protected by the Federal Confidentiality of Alcohol and Drug Abuse Patient Records regulations: The Federal rules restrict any use of the information to criminally investigate or prosecute any alcohol or drug abuse patient.[facility] the event this information is protected by the Federal Confidentiality of Alcohol and Drug Abuse Patient Records regulations: The Federal rules restrict any use of the information to criminally investigate or prosecute any alcohol or drug abuse patient.[facility] Hospital[facility] the event this information is protected by the Federal Confidentiality of Alcohol and Drug Abuse Patient Records regulations: The Federal rules restrict any use of the information to criminally investigate or prosecute any alcohol or drug abuse patient.[facility] the event this information is protected by the Federal Confidentiality of Alcohol and Drug Abuse Patient Records regulations: The Federal rules restrict any use of the information to criminally investigate or prosecute any alcohol or drug abuse patient.[facility] Hospital[facility] the event this information is protected by the Federal Confidentiality of Alcohol and Drug Abuse Patient Records regulations: The Federal rules restrict any use of the information to criminally investigate or prosecute any alcohol or drug abuse patient.[facility] Hospital[facility] the event this information is protected by the Federal Confidentiality of Alcohol and Drug Abuse Patient Records regulations: The Federal rules restrict any use of the information to criminally investigate or prosecute any alcohol or drug abuse patient.[facility] HospitalIn the event this information is protected by the Federal Confidentiality of Alcohol and Drug Abuse Patient Records regulations: The Federal rules restrict any use of the information to criminally investigate or prosecute any alcohol or drug abuse patient.[facility] Hospital[facility] the event this information is protected by the Federal Confidentiality of Alcohol and Drug Abuse Patient Records regulations: The Federal rules restrict any use of the information to criminally investigate or prosecute any alcohol or drug abuse patient.[facility] Hospital[facility] the event this information is protected by the Federal Confidentiality of Alcohol and Drug Abuse Patient Records regulations: The Federal rules restrict any use of the information to criminally investigate or prosecute any alcohol or drug abuse patient.[facility] the event this information is protected by the Federal Confidentiality of Alcohol and Drug Abuse Patient Records regulations: The Federal rules restrict any use of the information to criminally investigate or prosecute any alcohol or drug abuse patient.[facility] the event this information is protected by the Federal Confidentiality of Alcohol and Drug Abuse Patient Records regulations: The Federal rules restrict any use of the information to criminally investigate or prosecute any alcohol or drug abuse patient.[facility] the event this information is protected by the Federal Confidentiality of Alcohol and Drug Abuse Patient Records regulations: The Federal rules restrict any use of the information to criminally investigate or prosecute any alcohol or drug abuse patient.[facility] the event this information is protected by the Federal Confidentiality of Alcohol and Drug Abuse Patient Records regulations: The Federal rules restrict any use of the information to criminally investigate or prosecute any alcohol or drug abuse patient.[facility] the event this information is protected by the Federal Confidentiality of Alcohol and Drug Abuse Patient Records regulations: The Federal rules restrict any use of the information to criminally investigate or prosecute any alcohol or drug abuse patient.[facility] Hospital[facility] the event this information is protected by the Federal Confidentiality of Alcohol and Drug Abuse Patient Records regulations: The Federal rules restrict any use of the information to criminally investigate or prosecute any alcohol or drug abuse patient.[facility] HospitalIn the event this information is protected by the Federal Confidentiality of Alcohol and Drug Abuse Patient Records regulations: The Federal rules restrict any use of the information to criminally investigate or prosecute any alcohol or drug abuse patient.[facility] the event this information is protected by the Federal Confidentiality of Alcohol and Drug Abuse Patient Records regulations: The Federal rules restrict any use of the information to criminally investigate or prosecute any alcohol or drug abuse patient.[facility] the event this information is protected by the Federal Confidentiality of Alcohol and Drug Abuse Patient Records regulations: The Federal rules restrict any use of the information to criminally investigate or prosecute any alcohol or drug abuse patient.[facility] Hospital[facility] the event this information is protected by the Federal Confidentiality of Alcohol and Drug Abuse Patient Records regulations: The Federal rules restrict any use of the information to criminally investigate or prosecute any alcohol or drug abuse patient.[facility] Reason for Visit (unrecogniz ed section [...] RSPSE SPMTRY PRE&POST-BRNCDILAT ADMN Yonatan Sagastume MD [address] [place] [address] Respiratory [place] [address] [place] [address] Referral ID Status Reason Start Date Expiration Date V isits Requested Visits Authorized [id number] Closed Auto-Generate d Referral 02/15/2023 03/16/2024 1 1 Reason Comments Established Patient Care Teams (unrecognized sec tion and content) Zigzag Appliquer Relationship Specialty Start Date End Date Yonatan Sagastume MD [address] [facility] [place] [place] [address] PCP - General Internal Medicine 12/26/15 Zigzag Appliquer Relationship Specialty Start Date End Date Yonatan Sagastume MD [address] [facility] [place] [place] [address] PCP - General Internal Medicine 12/26/15 Zigzag Appliquer Relationship Specialty Start Date End Date Yonatna Sagastume MD [address] [facility] [place] [address] PCP - General Internal Medicine 12/26/15 Zigzag Appliquer Relationship Specialty Start Date End Date Yonatan Sagastume MD [address] [facility] [place] [address] PCP - General Internal Medicine 12/26/15 Zigzag Appliquer Relationship Specialty Start Date End Date Yonatan Sagastume MD [address] [facility] [place] [address] PCP - General Internal Medicine 12/26/15 Zigzag Appliquer Relationship Specialty Start Date End Date Yonatan Sagastume MD [address] [facility] [place] [address] PCP - General Internal Medicine 12/26/15 Zigzag Appliquer Relationship Specialty Start Date End Date Yonatan Sagastume MD [address] [facility] [place] [address] PCP - General Internal Medicine 12/26/15 Zigzag Appliquer Relationship Specialty Start Date End Date Yonatan Sagastume MD [address] [facility] [place] [address] PCP - General Internal Medicine 12/26/15 Zigzag Appliquer Relationship Specialty Start Date End Date Yonatan Sagastume MD [address] [facility] [place] [address] PCP - General Internal Medicine 12/26/15 Zigzag Appliquer Relationship Specialty Start Date End Date Yonatan Sagastume MD [address] [facility] [place] [address] PCP - General Internal Medicine 12/26/15 Zigzag Appliquer Relationship Specialty Start Date End Date Yonatan Sagastume MD [address] [facility] [place] [address] PCP - General Internal Medicine 12/26/15 Zigzag Appliquer Relationship Specialty Start Date End Date Yonatan Sagastume MD [address] [facility] [place] [address] PCP - General Internal Medicine 12/26/15 Zigzag Appliquer Relationship Specialty Start Date End Date Yonatan Sagastume MD [address] [facility] [place] [address] PCP - General Internal Medicine 12/26/15 Zigzag Appliquer Relationship Specialty Start Date End Date Yonatan Sagastume MD [address] [facility] [place] [address] PCP - General Internal Medicine 12/26/15 Zigzag Appliquer Relationship Specialty Start Date End Date Yonatan Sagastume MD [address] [facility] [place] [address] PCP - General Internal Medicine 12/26/15 FOR [...] BE BASED ON THE PRIMARY CLINICAL RECORDS. [facility]. provides no warranty or guarantee of the accuracy or completeness of information in this document.
== END | disposition home or self-care (01) ==
LOC: LAB 14:25
PROVIDERS: PCP Internal Medicine; Referring Provider Internal Medicine Cardiovascular Disease; Visit Provider Internal Medicine Cardiovascular Disease
DX: I48.0 Paroxysmal atrial fibrillation (principal)
CPT/HCPCS: 36415; 80048

== ENCOUNTER 2023-05-21 10:10 | Day surgery (SDC) | payer MEDICARE, OTHER, SELFPAY ==
[2023-05-20 08:28] VITALS: BMI 24.5
--- NOTE | 2023-05-21 12:15 | PRO.PCM_ITS ---
Procedure Report Date of Procedure: 05/21/23 DC cardioversion. 78-year-old man who was noted to be in atrial fibrillation with preserved e jection fraction. Patient has been on therapeutic anticoagulation for at least 3 weeks. Patient was brought into the noninvasive lab. Informed consent was obtained. Patient was seen by Dr. Bray of the critical care division. Anterior-posterior pads were applied. 60 mg of intravenous propofol was administered and 200 J of synchronized DC cardioversion energy were applied with prompt reversal to sinus rhythm. This was confirmed with an EKG using 20 mm/mV configuration. Conclusion: Successful DC cardioversion from atrial fibrillation to sinus rhythm. Follow-up as per office protocol. Patient has been asked to avoid high intensity activity for at least a week.
--- NOTE | 2023-05-21 13:35 | PCM.OP.PRO ---
Procedure Report Date of Procedure: 05/21/23 CONSCIOUS SEDATION REPORT BRIEF HISTORY OF PRESENT ILLNESS: The patient is an 78-year-old male who presented to [facility] for an elective outpatient cardioversion due to underlying atrial fibrillation. The patient reports no PO intake since midnight, but is currently therapeutic on anticoagulation. The patient does not have a history of YESY. The patient reports denies history of smoking and COPD. The patient denies any recent constitutional symptoms such as fevers, chills, nausea or vomiting. The patient denies previous applicable anesthetic complications. Patient's last known ejection fraction was 55%. Patient has not had a previous cardioversion PHYSICAL EXAMINATION: VITAL SIGNS: Reviewed and were acceptable. GENERAL: The patient is a male, in no apparent distress, speaking in full sentences. HEENT: Normocephalic, atraumatic. Mucous membranes are moist and pink. Good mouth opening noted. Trachea is midline. Good neck mobility. MP I CHEST: S1, S2 irregularly irregular. No murmurs, rubs or gallops were noted. LUNGS: Clear to auscultation bilaterally without appreciable wheezes, rales or rhonchi. ABDOMEN: Soft, nontender, nondistended. Positive bowel sounds. EXTREMITIES: There is no clubbing, cyanosis or edema. ASA Class: II DESCRIPTION OF PROCEDURE: After confirmation of informed consent, the patient's anesthesia plan was reviewed in detail. Propofol was chosen. Risks and benefits were reviewed and the patient agreed to proceed. At 12:03 PM, the patient was given 40 mg of propofol. The patient required a total of 60 mg of propofol throughout the procedure to achieve appropriate sedation. The patient achieved an appropriate level of sedation and received 1 attempt synchronized cardioversion, at [address] Nelson at the bedside. This was successful in achieving normal sinus rhythm. The patient was monitored until 12:17 PM, at which time the patient reached their baseline mental status and function. The patient tolerated the procedure well. COMPLICATIONS: None ESTIMATED BLOOD LOSS: None RECOMMENDATIONS: Okay to recover in usual fashion. Procedures Pulmonary 9xxxx: [id number] Con Sedation
== END 2023-05-21 13:05 | disposition home or self-care (01) ==
PROVIDERS: PCP Internal Medicine; Referring Provider Internal Medicine Cardiovascular Disease; Visit Provider Internal Medicine Cardiovascular Disease
DX: I48.0 Paroxysmal atrial fibrillation (principal); K21.9 Gastro-esophageal reflux disease without esophagitis; N40.0 Benign prostatic hyperplasia without lower urinary tract symptoms; Z79.899 Other long term (current) drug therapy; Z79.51 Long term (current) use of inhaled steroids; Z79.01 Long term (current) use of anticoagulants
CPT/HCPCS: 92960; 93005; J7040

== ENCOUNTER → 2023-06-21 | Outpatient (CLI) | payer MEDICARE, OTHER, SELFPAY ==
--- NOTE | 2023-06-21 16:22 | STRESSREP ---
Stress Test Report Exercise myocardial perfusion stress test. 78-year-old male with a history of atrial fibrillation Stress protocol: Resting EKG demonstrates atrial fibrillation with a rate of 56 bpm resting blood pressure is 162/88 mmHg. The patient exercised according to the regular Michael protocol for a total duration of 7 minutes attaining a maximum heart rate of 151 bpm which was 107% of maximum predicted heart rate; the maximum workload was 10.1 metabolic equivalents. At rest there were no ST or T wave changes noted to suggest ischemia and at peak exercise upsloping ST changes only were noted which did not meet the criteria for ischemia. No clinical angina was noted the test was terminated due to the target heart rate being achieved/fatigue. The peak blood pressure was 180/92 mmHg. Rate-pressure product was 21,500. Myocardial perfusion protocol. 11.6 mCi of technetium 99m sestamibi was injected at rest. The patient exercised according to regular Michael protocol for total duration of 7 minutes and at peak exercise 32 point mCi of technetium 99m sestamibi was injected stress images were obtained stress and rest images were reconstructed in comparing the short axis vertical long and horizontal long axis. Gated images were also obtained. Perfusion SPECT analysis: Review of the stress images demonstrate normal uptake of tracer noted in all areas of the myocardium. The resting images similarly demonstrate normal uptake of tracer noted in all areas of the myocardium. No areas of reversibility are noted to suggest ischemia no previous infarct was noted. Gated SPECT analysis: The gated ejection fraction is 53%. Conclusion: Normal exercise myocardial perfusion stress test at a moderate workload Preserved ejection fraction. Persistent atrial fibrillation
== END | disposition home or self-care (01) ==
LOC: CVS 05:29
PROVIDERS: PCP Internal Medicine; Referring Provider Internal Medicine Cardiovascular Disease; Visit Provider Internal Medicine Cardiovascular Disease
DX: R07.89 Other chest pain (principal); I48.0 Paroxysmal atrial fibrillation; E78.00 Pure hypercholesterolemia, unspecified; R12 Heartburn
CPT/HCPCS: 78452; 93017; A9500; A4216

== ENCOUNTER → 2023-08-17 | Outpatient (CLI) | payer MEDICARE, OTHER, SELFPAY ==
--- NOTE | 2023-08-17 13:00 | ECHOD_ITS ---
Reason For Study: ATRIAL FIBRILLATION Procedure This was a 2D Doppler, Color Flow transthoracic echocardiogram. Exam performed in department. Left Ventricle Normal LV size. Mild concentric left ventricular hypertrophy. The left ventricular ejection fraction is 50 %. There is mild global hypokinesis of the left ventricle. Right Ventricle Mildly dilated right ventricle. Mild to moderate global right ventricular systolic dysfunction. Atria The left atrium is severely enlarged. The right atrium is severely enlarged. Mitral Valve Bileaflet diffuse mitral valve thickening. Mild (1+) mitral valve insufficiency. Tricuspid Valve Normal tricuspid valve. Mild to moderate (1-2+) tricuspid valve insufficiency. Pulmonary artery systolic pressure is 37 mmHg. Aortic Valve Trisinus/trileaflet aortic valve. Mild (1+) eccentric aortic valve insufficiency. Pulmonic Valve Normal pulmonic valve. Pericardium/Pleural No pericardial effusion. MMode/2D Measurements & Calculations LVIDd: 5.0 cm IVSd: 1.2 cm LVOT diam: 2.0 cm LVIDs: 3.2 cm LVPWd: 1.2 cm LVOT area: 3.3 cm2 RVDd: 4.9 cm FS: 36.5 % Ao root diam: 4.2 cm LAV(MOD-bp): 152.2 ml LVAd ap4: 29.8 cm2 LAV(MOD-bp) Indexed: 75.4 ml/m2 LVLd ap4: 7.8 cm LAV(MOD-sp2): 166.6 ml EDV(MOD-sp4): 92.0 ml LAV(MOD-sp4): 136.3 ml EDV(sp4-el): 96.1 ml LVAs ap4: 19.7 cm2 LVLs ap4: 7.0 cm ESV(MOD-sp4): 46.0 ml ESV(sp4-el): 46.9 ml EF(MOD-sp4): 50.0 % EF(sp4-el): 51.2 % SV(MOD-sp4): 46.0 ml SV(MOD-sp2): 46.2 ml LVAd ap2: 30.4 cm2 LVLd ap2: 8.8 cm EDV(MOD-sp2): 89.6 ml EDV(sp2-el): 89.4 ml LVAs ap2: 19.7 cm2 LVLs ap2: 7.7 cm ESV(MOD-sp2): 43.4 ml ESV(sp2-el): 43.0 ml EF(MOD-sp2): 51.6 % SV(sp4-el): 49.2 ml LA A4 area: 35.7 cm2 LA dimension(2D): 5.1 cm TAPSE: 1.8 cm RA A4 area: 31.3 cm2 Time Measurements MV dec time: 0.16 sec Doppler Measurements & Calculations MV E max jez: 67.6 cm/sec Lat Peak E' Jez: 13.9 cm/sec Med Peak E' Jez: 8.7 cm/sec E/E' lat: 4.9 E/E' med: 7.7 Ao V2 max: 120.9 cm/sec AI max jez: 434.5 cm/sec LV V1 max: 89.3 cm/sec Ao max P.9 mmHg AI max P.6 mmHg LV V1 max P.2 mmHg Ao V2 mean: 81.3 cm/sec AI dec slope: 121.0 cm/sec2 LV V1 mean P.7 mmHg Ao mean P.0 mmHg AI P1/2t: 1051 msec LV V1 mean: 61.1 cm/sec Ao V2 VTI: 24.7 cm LV V1 VTI: 18.7 cm AV (velocity ratio): 0.76 GABRIEL(I,D): 2.5 cm2 GABRIEL(V,D): 2.4 cm2 SV(LVOT): 61.4 ml PA V2 max: 68.3 cm/sec TR max jez: 280.1 cm/sec PA max PG (full): 0.94 mmHg TR max P.4 mmHg ECHO/Echo Complete Interpretation Summary Normal LV size. Mild concentric left ventricular hypertrophy. The left ventricular ejection fraction is 50 %. There is mild global hypokinesis of the left ventricle. The left atrium is severely enlarged. The right atrium is severely enlarged. Ordering Physician: Luis Enrique Nelson Referring Physician: Yonatan Sanchez M.D. Performed By: Delores, Yane, RDCS
== END | disposition home or self-care (01) ==
LOC: CVS 12:59
PROVIDERS: PCP Internal Medicine; Referring Provider Internal Medicine Cardiovascular Disease; Visit Provider Internal Medicine Cardiovascular Disease
DX: I48.0 Paroxysmal atrial fibrillation (principal)
CPT/HCPCS: 93306

== ENCOUNTER → 2024-01-11 | Outpatient (CLI) | payer MEDICARE, OTHER, SELFPAY ==
--- NOTE | 2024-01-11 15:32 | RAD_ITS ---
STUDY: X-RAY CHEST REASON FOR EXAM: Male, 78 years old. chest pressure TECHNIQUE: PA and lateral views of the chest. COMPARISON: 03/06/2023 FINDINGS: The lungs are clear and expanded. There is no demonstrated pleural abnormality. There is moderate cardiac enlargement. Normal mediastinum and onofre. Normal visualized pulmonary arteries. There is atherosclerotic tortuosity of the aortic arch and descending thoracic aorta. Normal visualized thoracic spine. Normal visualized ribs, clavicles, and shoulders. There is no demonstrated abnormality of the visualized soft tissue structures of the upper abdomen. RAD/Chest PA and Lateral IMPRESSION: No active disease. Electronically Signed: Darrion Berry MD at 11:41 EST ,
[2024-01-11 17:24] LABS: Absolute Lymphocyte Count 0.84 X10^3/uL (0.83-4.51); Absolute Neutrophil Count 2.7 X10^3/uL (2.0-7.7); Basophil# 0.02 X10^3/uL; Basophil% 0.5 % (0-1); Eosinophil# 0.11 X10^3/uL; Eosinophils% 2.7 % (0-5); Hematocrit 40.1 % (40-54); Hemoglobin 13.6 g/dL (13.0-16.5); Lymphocyte # 0.84 X10^3/ul (0.83-4.51); Lymphocyte % 20.4 % (19-41); Mean Corp Hgb Conc 33.9 g/dL (32-36); Mean Corpuscular Hgb 32.6 pg (27.0-32.0); Mean Corpuscular Volume 96.2 fL (80-94); Mean Platelet Vol. 11.3 fl (6.2-12.0); Monocyte# 0.45 X10^3/uL; Monocyte% 10.9 % (0-10); NRBC Flagged by Analyzer 0 % (0-5); Neutrophil # 2.68 X10^3/uL (2.7-7.7); Neutrophil % 65.3 % (47-70); Platelet Count 158 K/mm3 (150-450); RBC Distribution Width CV 14.5 % (11.6-14.6); RBC Distribution Width SD 51.5 fl (35.1-43.9); Red Blood Count 4.17 M/mm3 (4.6-6.2); White Blood Count 4.1 K/mm3 (4.4-11.0)
[2024-01-11 18:10] LABS: Anion Gap 7 (5-15); BUN 21 mg/dL (7-18); BUN/Creat Ratio 17.6 RATIO (10-20); Calcium,Total 8.9 mg/dL (8.5-10.1); Chloride 109 mmol/L (98-107); Creatinine, Serum 1.19 mg/dL (0.70-1.30); EST Glomerular Filtration Rate 62 mL/min (>60); Est Glom Filt Rate - Afr Amer 76 mL/min (>60); Glucose 115 mg/dL (74-106); Potassium 4.2 mmol/L (3.5-5.1); Sodium Level 142 mmol/L (136-145)
== END | disposition home or self-care (01) ==
LOC: RAD 15:31
PROVIDERS: Referring Provider Internal Medicine Cardiovascular Disease; Visit Provider Internal Medicine Cardiovascular Disease
DX: I48.0 Paroxysmal atrial fibrillation (principal); R07.89 Other chest pain
CPT/HCPCS: 36415; 71046; 80048; 85025

== ENCOUNTER 2024-01-17 06:50 | Day surgery (SDC) | payer MEDICARE, OTHER, SELFPAY ==
[2024-01-14 09:11] VITALS: BMI 24.5
--- NOTE | 2024-01-17 08:39 | CL.D_ITS ---
Patient Name: MADYSON DANIELS Study Date: 01/17/2024 Performing: Luis Enrique Nelson MD Ht: 72 inches 182.88 cm : 1945 Wt: 181 lbs 82.1 kg Age: 78 Gender: male BSA: 2.04 PROCEDURE(S) PERFORMED DC01-([id number])LHC/COR/LV CLINICAL PROFILE AND INDICATIONS Indications: Suspected CAD Heart Failure: None Stress/Imaging Date: 06/21/23 CAD Presentations: Stable angina. CONCLUSIONS Mild atherosclerotic plaquing with mildly reduced flow and mild global dysfunction. No high-grade stenosis present. RECOMMENDATIONS Medical therapy DESCRIPTION OF PROCEDURE The patient arrived to the procedure lab. The risks and benefits of the procedure as well as a full description of our services here and current unavailability of surgical backup were fully explained to the patient and/or their significant other prior to the catheterization. The Timeout was completed, verifying the correct patient and procedure. The patient's procedural site was prepped and draped in the usual fashion. Local anesthetic was given subcutaneously to right radial region with Lidocaine 2%. Using a modified Seldinger technique, arterial access was obtained via the right radial artery, a 6Fr sheath was inserted. Right Coronary Artery selective angiography was then performed in multiple views using a 5 Fr. 4.0 [place] catheter. Left Coronary Artery selective angiography was performed in multiple views using a 5 Fr. 4.0 [place] catheter. Left Ventriculography was performed in GERBER projection using a 5 Fr. [place] catheter. LV to AO pullback pressures were then recorded.The arterial sheath was pulled and a TR Band was applied for hemostasis CORONARY ANGIOGRAPHY DOMINANCE: Right Dominant LEFT HEART ASSESSMENT Left Ventricular Ejection Fraction: by LV Gram 50 % Global Hypokinesis - Mild Depressed Left Ventricular systolic function LEFT MAIN: Angiographically normal LEFT ANTERIOR DESCENDING ARTERY: Moderate calcification, Medium size vessel with mild 30 to 40% proximal to mid atherosclerotic plaquing and mild distal disease CIRCUMFLEX ARTERY: Mild diffuse atherosclerotic plaquing with no high-grade stenosis RIGHT CORONARY ARTERY: Dominant large vessel with atherosclerotic plaquing and mild diffuse disease. COMPLICATIONS No Complications PROCEDURE MEDICATIONS Fentanyl 50 mcg IV Versed 10 mg IV Versed 1 mg IV Oxygen: 2 L/min via nasal cannula Heparin given IA 01/17/2024 08:07:59 SUMMARY OF HEMODYNAMIC DATA Time AIR REST ECG 07:15:19 ECG 07:56:00 AO 166/86 (118) SA 08:14:51 LV 153/-5, -2 08:20:51 LV 161/-5, -2 08:20:59 LV 115/-5, -2 08:21:39 LVp 147/-5, -1 08:21:44 AOp 153/66 (100) 08:21:49 AIR REST 08:38:21 Signed By Luis Enrique Nelson MD On 01/17/2024 08:38:43 Luis Enrique Nelson MD
== END 2024-01-17 10:30 | disposition home or self-care (01) ==
PROVIDERS: Referring Provider Internal Medicine Cardiovascular Disease; Visit Provider Internal Medicine Cardiovascular Disease
DX: I25.10 Atherosclerotic heart disease of native coronary artery without angina pectoris (principal); I48.0 Paroxysmal atrial fibrillation; I34.0 Nonrheumatic mitral (valve) insufficiency; I35.1 Nonrheumatic aortic (valve) insufficiency; K21.9 Gastro-esophageal reflux disease without esophagitis; M19.90 Unspecified osteoarthritis, unspecified site; Z79.01 Long term (current) use of anticoagulants; Z79.899 Other long term (current) drug therapy; Z96.659 Presence of unspecified artificial knee joint; Z85.828 Personal history of other malignant neoplasm of skin
CPT/HCPCS: 93458; 99152; J7040; Q9967; C1769; C1894

== ENCOUNTER 2024-02-28 10:22 | Day surgery (SDC) | payer MEDICARE, OTHER, SELFPAY ==
[2024-02-14 10:03] LABS: Anion Gap 3 (5-15); BUN 20 mg/dL (7-18); BUN/Creat Ratio 20.2 RATIO (10-20); Calcium,Total 9.4 mg/dL (8.5-10.1); Chloride 107 mmol/L (98-107); Creatinine, Serum 0.99 mg/dL (0.70-1.30); EST Glomerular Filtration Rate 77 mL/min (>60); Est Glom Filt Rate - Afr Amer 93 mL/min (>60); Glucose 99 mg/dL (74-106); Sodium Level 140 mmol/L (136-145)
--- NOTE | 2024-02-14 15:23 | PCM.HP.BLA ---
History and Physical Date of Admission: 02/28/24 Pleasant 78-year-old man with no previous cardiac history other than mild valvular disease with mitral regurgitation tricuspid regurgitation and aortic regurgitation who presented to the hospital in February 2023 with a right haemophilus influenza lobar pneumonia and concurrent atrial fibrillation. He was noted to be in rapid ventricular response rate he was put on a beta-micki as well as apixaban which he tolerated quite well. He was subsequently discharged for outpatient follow-up. Last month he was in the office and complained of chest discomfort which is daily but does not occur when he is pushing his golf cart or walking. As you know he underwent a stress test earlier this year with demonstrated no evidence of ischemia at a moderate workload and his echocardiogram demonstrated an ejection fraction of 50% with mild global hypokinesis and biatrial enlargement. His physical exam continues to demonstrate an irregular heart rate and no pedal edema. His atrial fibrillation is unbeknownst to him. Patient underwent a diagnostic heart catheterization in January 2024. This demonstrated mild arthrosclerotic plaquing with mildly reduced flow and mild global dysfunction. No high-grade stenosis. He was started on anticoagulation and he is here today for a cardioversion. [facility] Medical History Acute renal insufficiency Arthritis Atrial fibrillation, new onset Benign neoplasm of colon BPH (benign prostatic hyperplasia) Community acquired pneumonia Diverticulosis of colon GERD (gastroesophageal reflux disease) Hiatal hernia Hypercholesterolemia Open fracture of left distal forearm Paroxysmal atrial fibrillation Skin cancer Surgical History Total knee replacement status Family History Brother Esophageal cancer Father Cancer Sister Kidney transplant recipient Social History Smoking Status: Never smoker alcohol intake: current alcohol intake frequency: a few times a week ROS Const Const: Negative for fatigue, weakness, headache(s), daytime sleepiness or difficulty sleeping ENT ENT: Negative for headache(s), dizziness or Nosebleed/epistaxis Cardio Chest Pain: Yes Frequency: daily (mostly at night when laying down) Character: other (discomfort) Onset: other (at night ) Location: mid sternal Duration: continuous Palpitations: No Edema: None Resp Respiratory: Negative for SOB with activity, SOB at rest, SOB orthopnea\SOB lying down or Cough GI GI: Negative nausea, vomiting or heartburn Neuro Neuro: Negative for dizziness, lightheadedness, near syncope, headache(s) or weakness Endo Endo: Negative for fatigue Cardiology Exam Const Appearance: cooperative, healthy appearing, no acute distress, well developed and well groomed Nutritional Appearance: average body habitus and well nourished Orientation: alert, awake and oriented x3 Head Head: normal to inspection, normocephalic and atraumatic Ears: hearing grossly normal bilaterally and external ears normal Nose: external nose normal, nares normal, nasal mucous membranes and turbinates normal, septum normal and no nasal discharge Face and Sinus: face symmetric Mouth: oral mucosae normal, tongue normal, oropharynx normal and moist mucous membranes Teeth and gingiva: dentition normal Throat: posterior oropharynx normal, tonsils normal and uvula midline Eyes General: appearance normal, both eyes and all related structures Eyelids: eyelids normal Conjunctivae: conjunctivae normal Pupils: PERRL, normal by confrontation and accommodation normal EOM: EOM intact bilaterally Neck Neck: normal visual inspection, trachea midline and no JVD JVD: +5 Carotids: normal carotid upstroke and bounding pulses Chest Chest inspection: normal inspection of the chest, symmetric chest movement and normal respiratory effort Auscultation: Bilateral: Clear to Auscultation Cardio Palpation: normal PMI Rhythm: irregularly irregular Heart sounds: S1 normal, S2 normal and normal, physiologic split S2; Negative rub, gallop or murmur GI GI: normal to inspection, soft, no hepatosplenomegaly and bowel sounds present Neuro General: patient alert, patient awake, patient oriented x3, gait normal, moves all extremities and no focal sensory deficit Skin Skin: no rashes or lesions noted Extremities Pulses: Normal: Right Femoral Pulse, Left Femoral Pulse, Right Dorsalis Pedis Pulse, Left Dorsalis Pedis Pulse, Right Posterior Tibial Pulse, Left Posterior Tibial Pulse, Right Radial Pulse and Left Radial Pulse Lower Extremity Edema: None: Bilateral Musculoskel Musculoskeletal: No joint tenderness Psych Psychological: normal affect Assessment & Plan Assessment/Plan (1) Persistent atrial fibrillation: PLAN: Patient has been anticoagulated for at least 30 days. Will proceed with cardioversion today. If this does not hold will need to consider anticoagulation versus EP referral.
[2024-02-28 10:46] VITALS: BMI 25.7
--- NOTE | 2024-02-28 12:37 | PCM.OP.PRO2 ---
Problems Associated Problem List Diagnoses (1) Persistent atrial fibrillation: Non-invasive Procedural Procedure Information Date of Procedure: 02/28/24 Pre-Procedure Diagnosis: Atrial fibrillation Post-Procedure Diagnosis: Same Procedure Performed:: DC cardioversion Procedure Time Out: Procedure Start Time: Procedure Stop Time: Special Medications: Intravenous propofol 50 mg Description of procedure: Patient was brought to the cardiac catheterization lab in the postabsorptive nonsedated state. Informed consent was obtained. Anterior-posterior pads were applied. 50 mg of intravenous propofol was administered and 200 J of synchronized biphasic DC cardioversion energy were applied with prompt reversal to sinus rhythm. EKG was obtained with increased voltage demonstrating P waves. Procedure findings: Successful DC cardioversion from atrial fibrillation to sinus rhythm. Complications Complications: No
--- NOTE | 2024-02-28 12:44 | PCM.OP.PRO2 ---
Procedures Pulmonary Pulmonary Procedures /Diagnostic Testin Con Sedation Non-invasive Procedural Procedure Information Description of procedure: CONSCIOUS SEDATION REPORT DATE OF SERVICE: February 28, 2024 BRIEF HISTORY OF PRESENT ILLNESS: The patient is an 78-year-old male who presented to [facility] for elective outpatient cardioversion due to underlying atrial fibrillation. The patient did undergo a successful cardioversion in May 2023. He denied any prior anesthetic complications. The patient denied any history of smoking or COPD. He is systemically anticoagulated on Eliquis, without any missed doses. His last surface echocardiogram demonstrated an ejection fraction of approximately 50%. PHYSICAL EXAMINATION: VITAL SIGNS: Reviewed and were acceptable. GENERAL: The patient is a male, in no apparent distress, speaking in full sentences. HEENT: Normocephalic, atraumatic. Mucous membranes are moist and pink. Good mouth opening noted. Trachea is midline. Good neck mobility. CHEST: S1, S2 irregularly irregular. No murmurs, rubs or gallops were noted. LUNGS: Clear to auscultation bilaterally without appreciable wheezes, rales or rhonchi. ABDOMEN: Soft, nontender, nondistended. Positive bowel sounds. EXTREMITIES: There is no clubbing, cyanosis or edema. ASA Class: II DESCRIPTION OF PROCEDURE: After confirmation of informed consent, the patient's anesthesia plan was reviewed in detail. Propofol was chosen. Risks and benefits were reviewed and the patient agreed to proceed. At 1223, the patient was given 50 mg of propofol. The patient achieved an appropriate level of sedation and was given a 200 joule synchronized cardioversion by Dr. Nelson at the bedside. This was successful in achieving normal sinus rhythm. The patient was monitored until 1237, at which time he reached his baseline mental status and function. The patient tolerated the procedure well. COMPLICATIONS: None ESTIMATED BLOOD LOSS: None RECOMMENDATIONS: Okay to recover in usual fashion.
== END 2024-02-28 13:30 | disposition home or self-care (01) ==
PROVIDERS: Referring Provider Internal Medicine Cardiovascular Disease; Visit Provider Internal Medicine Cardiovascular Disease
DX: I48.19 Other persistent atrial fibrillation (principal); I48.0 Paroxysmal atrial fibrillation; Z79.01 Long term (current) use of anticoagulants; K21.9 Gastro-esophageal reflux disease without esophagitis; E78.00 Pure hypercholesterolemia, unspecified
CPT/HCPCS: 36415; 80048; 92960; 93005